=== PATIENT | female | born 1970 | race Caucasian/White ===

== ENCOUNTER 2016-11-01 21:49 | Inpatient (IN) | payer OTHER ==
[~2016-11-01] VITALS: Ht 162.6 cm; Wt 141.5 kg
[~2016-11-01 21:49] MED LIST: GLUC1000 PO; LEVO.1 PO
[2016-11-01 21:58] VITALS: BP 130/71; PULSE 73; RESP 22; TEMP 98.3; O2SAT 72
[2016-11-01 22:08] VITALS: O2SAT 95
--- NOTE | 2016-11-01 22:33 | RADRPT ---
EXAM DATE/TIME: 11/01/2016 22:28 [place] COMPARISON: CHEST SINGLE AP, August 07, 2016, 17:08. INDICATIONS : Shortness of breath. MEDICAL HISTORY : Hypertension. Chronic obstructive pulmonary disease. Diabetes mellitus type SURGICAL HISTORY : None. ENCOUNTER: Initial ACUITY: 1 day PAIN SCORE: 5/10 LOCATION: Bilateral chest FINDINGS: No infiltrate, effusion or pneumothorax demonstrated. Heart size mildly enlarged, similar to before. CONCLUSION: No acute cardiopulmonary disease demonstrated. Mild, stable compensated cardiomegaly. Jasbir Whitlock MD on November 01, 2016 at 22:32 Board Certified Radiologist. This report was verified electronically.
--- NOTE | 2016-11-01 22:36 | PD ---
HPI Chief Complaint: GI Complaint Time Seen by Provider: 22:36 Travel History International Travel<30 days: No Contact w/Intl Traveler<30days: No Traveled to known affect area: No History of Present Illness HPI 46-year-old female with a history of diabetes, sleep apnea, morbid obesity, gastritis, alcohol abuse is brought to the emergency department by EMS for evaluation of nausea and vomiting for 2-3 days. Per EMS the patient's oxygen saturation was noted to be 78% on room air and she was placed on 6 L of nasal cannula which brought her up to 100%. The patient states that she's had nausea and vomiting for 2-3 days with epigastric pain, states she has a history of gastritis. States that she has had shortness of breath over the past 4 days that worsened significantly yesterday. Denies any chest pain, lightheadedness, dizziness. States that she has had a mild cough over the past few days. States she has swelling of her bilateral ankles for the past week. The patient is reporting a history of COPD and thinks that she may have CHF but is not sure. She has a remote history of cigarette smoking. Denies any drug use. States that her PCP is Dr. Araiza but she has not seen her in 2 months, has been out of her medications for the past month. Of note the patient is a poor historian. No other complaints. PFSH Past Medical History Arthritis: No Asthma: Yes Autoimmune Disease: No Anxiety: Yes Depression: No Heart Rhythm Problems: Yes Cancer: No Cardiovascular Problems: Yes High Cholesterol: Yes Chemotherapy: No Chest Pain: No Congestive Heart Failure: Yes COPD: Yes Cerebrovascular Accident: No Diabetes: Yes Patient Takes Glucophage: Yes (METFORMIN) Diminished Hearing: No Endocrine: Yes Gastrointestinal Disorders: Yes (GASTRITIS) GERD: Yes Genitourinary: Yes Headaches: No Hiatal Hernia: No Heparin Induced Thrombocytopen: No Hypertension: Yes ("IN THE PAST") Immune Disorder: No Implanted Vascular Access Dvce: No Kidney Stones: No Musculoskeletal: Yes Neurologic: Yes (PERIPHERAL NEUROPATHY) Psychiatric: Yes Reproductive: No Respiratory: Yes (COPD, SLEEP APNEA) Integumentary: Yes (CELLUTLITIS HX BILATERAL LEGS) Immunizations Current: Yes Migraines: No Radiation Therapy: No Seizures: No Sickle Cell Disease: No Sleep Apnea: Yes Thyroid Disease: Yes (hypothyroid) Ulcer: No ?: Not Menopausal: Yes : 1 Para: 1 Miscarriage: 0 : 0 Past Surgical History Abdominal Surgery: No AICD: No Arteriovenous Shunt: No Cardiac Surgery: No Ear Surgery: No Endocrine Surgery: No Eye Surgery: Yes ("LAZY EYE" CORRECTION AT AGE 5) Genitourinary Surgery: No Gynecologic Surgery: No Insulin Pump: No Joint Replacement: No Neurologic Surgery: No Oral Surgery: No Pacemaker: No Thoracic Surgery: No Other Surgery: Yes (trach/g-tube) Family History Family Myocardial Infarction: Yes (GRANDFATHER SIDDIQUI) Social History Alcohol Use: Yes (3 X WEEK) Tobacco Use: No (QUIT 1999 1.5 PPD) Substance Use: No Allergies-Medications (Allergen,Severity, Reaction): Coded Allergies: Keflex (Verified Allergy, Severe, FACE SWELLS, 11/01/16) Penicillin (Verified Allergy, Severe, Anaphylaxis, 11/01/16) Clindamycin (Verified Allergy, Unknown, 11/01/16) STS IT PUT A HOLE IN HER LEG Doxycycline (Verified Adverse Reaction, Unknown, diarrhea, 11/01/16) Reported Meds & Prescriptions Reported Meds & Active Scripts Active Reported Synthroid (Levothyroxine Sodium) 100 Mcg Tab 100 Mcg PO DAILY Glucophage (Metformin HCl) 1,000 Mg Tab 1,000 Mg PO BIDPC With a meal Review of Systems ROS Limitations: Poor Historian Except as stated in HPI: all other systems reviewed are Neg Physical Exam Exam Limitations: Poor Historian Narrative GENERAL: Morbidly obese female patient in no acute distress. SKIN: Warm and dry. HEAD: Normocephalic and atraumatic. EYES: No injection, drainage, or hyphema noted. PERRLA. EOMI. ENT: No nasal drainage noted. Oropharynx is clear. NECK: Supple and the trachea is midline. CARDIOVASCULAR: Regular rate and rhythm. RESPIRATORY: Breath sounds are equal bilaterally with no accessory muscle use, wheezing, rhonchi, or crackles. GASTROINTESTINAL: Abdomen is soft, non-tender, and nondistended. MUSCULOSKELETAL: Swelling of bilateral ankles. No obvious deformities, cyanosis , or ecchymosis is present throughout the upper and lower extremities. Patient has full range of motion without any signs of neurovascular compromise. NEUROLOGICAL: Awake, alert, and oriented. Normal speech and gait. Cranial nerves are grossly intact. Data Data Last Documented VS Vital Signs Date Time Temp Pulse Resp B/P Pulse Ox O2 Delivery O2 Flow Rate FiO2 11/01/16 22:08 95 Nasal Cannula 4 11/01/16 22:04 22 11/01/16 21:58 98.3 73 130/71 Orders Complete Blood Count With Diff (11/01/16 22:05) Comprehensive Metabolic Panel (11/01/16 22:05) Lipase (11/01/16 22:05) Lactic Acid (11/01/16 22:05) Prothrombin Time / Inr (Pt) (11/01/16 22:05) Act Partial Throm Time (Ptt) (11/01/16 22:05) Urinalysis - C+S If Indicated (11/01/16 22:05) Iv Access Insert/Monitor (11/01/16 22:05) Ecg Monitoring (11/01/16 22:05) Oximetry (11/01/16 22:05) Sodium Chloride 0.9% Flush (Ns Flush) (11/01/16 22:15) Electrocardiogram (11/01/16 22:05) B-Type Natriuretic Peptide (11/01/16 22:05) D-Dimer (11/01/16 22:05) Ckmb (Isoenzyme) Profile (11/01/16 22:05) Troponin I (11/01/16 22:05) Oxygen Administration (11/01/16 22:05) Chest, Single Ap (11/01/16 22:05) Drug Screen, Random Urine (11/01/16 22:35) Alcohol (Ethanol) (11/01/16 22:35) Ct Pulmonary Angiogram (11/01/16 22:56) Labs Laboratory Tests Test 11/01/16 22:20 White Blood Count 7.6 TH/MM3 Red Blood Count 4.59 MIL/MM3 Hemoglobin 14.1 GM/DL Hematocrit 42.0 % Mean Corpuscular Volume 91.5 FL Mean Corpuscular Hemoglobin 30.8 PG Mean Corpuscular Hemoglobin 33.6 % Concent Red Cell Distribution Width 14.0 % Platelet Count 214 TH/MM3 Mean Platelet Volume 8.7 FL Neutrophils (%) (Auto) 56.0 % Lymphocytes (%) (Auto) 36.1 % Monocytes (%) (Auto) 5.0 % Eosinophils (%) (Auto) 2.6 % Basophils (%) (Auto) 0.3 % Neutrophils # (Auto) 4.2 TH/MM3 Lymphocytes # (Auto) 2.7 TH/MM3 Monocytes # (Auto) 0.4 TH/MM3 Eosinophils # (Auto) 0.2 TH/MM3 Basophils # (Auto) 0.0 TH/MM3 CBC Comment DIFF FINAL Differential Comment Prothrombin Time 10.5 SEC Prothromb Time International 1.0 RATIO Ratio Activated Partial 22.0 SEC Thromboplast Time D-Dimer Quantitative (PE/DVT) 0.27 MG/L FEU Sodium Level 140 MEQ/L Potassium Level 4.2 MEQ/L Chloride Level 96 MEQ/L Carbon Dioxide Level 37.7 MEQ/L Anion Gap 6 MEQ/L Blood Urea Nitrogen 12 MG/DL Creatinine 0.79 MG/DL Estimat Glomerular Filtration 78 ML/MIN Rate Random Glucose 136 MG/DL Lactic Acid Level 2.0 mmol/L Calcium Level 8.1 MG/DL Total Bilirubin 0.3 MG/DL Aspartate Amino Transf 13 U/L (AST/SGOT) Alanine Aminotransferase 21 U/L (ALT/SGPT) Alkaline Phosphatase 178 U/L Total Creatine Kinase 30 U/L Troponin I LESS THAN 0.02 NG/ML Total Protein 7.1 GM/DL Albumin 3.2 GM/DL Lipase 108 U/L [facility] Medical Decision Making Medical Screen Exam Complete: Yes Emergency Medical Condition: Yes Differential Diagnosis Gastritis versus pancreatitis versus alcohol abuse versus pneumonia versus PE Narrative Course 46-year-old female is brought to the emergency department by EMS for evaluation of nausea, vomiting and shortness of breath. Patient is found to have an oxygen saturation of 72% on room air. Otherwise vital signs are within normal limits. Physical examination is essentially unremarkable. IV access is obtained, labs were drawn and sent. Chest x-ray has been ordered and is pending. CBC is unremarkable. CMP is essentially unremarkable for any acute abnormalities. Troponin is less than 0.02. Lactic acid is 2.0. Coags are unremarkable. D-dimer is negative. Chest x-ray shows cardiomegaly but is otherwise unremarkable. CT pulmonary angiogram has been ordered and is pending. Patient signed out to Dr. Julian who will assume care of the patient and disposition pending results of CT pulmonary angiogram. Luba Torres Nov 01, 2016 22:36
[2016-11-01 22:41] LABS: AUTOMATED NEUTROPHIL # 4.2 TH/MM3 (1.8-7.7); BASOPHIL % 0.3 % (0.0-2.0); EOSINOPHIL # 0.2 TH/MM3 (0-0.4); EOSINOPHIL % 2.6 % (0.0-4.0); HEMO FLAGS DIFF FINAL; LYMPH % 36.1 % (9.0-44.0); LYMPHOCYTE # 2.7 TH/MM3 (1.0-4.8); MEAN CELL VOLUME 91.5 FL (80.0-100.0); MEAN CORPUSCULAR HEMOGLOBIN 30.8 PG (27.0-34.0); MEAN CORPUSCULAR HGB CONC 33.6 % (32.0-36.0); PLATELET COUNT 214 TH/MM3 (150-450); RED BLOOD COUNT 4.59 MIL/MM3 (4.00-5.30); WHITE BLOOD COUNT 7.6 TH/MM3 (4.0-11.0)
[2016-11-01 22:52] LABS: ANION GAP 6 MEQ/L (5-15); AST (GOT) 13 U/L (15-37); BICARBONATE 37.7 MEQ/L (21.0-32.0); BLOOD UREA NITROGEN 12 MG/DL (7-18); CHLORIDE 96 MEQ/L (98-107); GLOMERULAR FILTRATION RATE 78 ML/MIN (>89); POTASSIUM 4.2 MEQ/L (3.5-5.1); SODIUM (NA) 140 MEQ/L (136-145)
[2016-11-01 22:57] LABS: ALKALINE PHOSPHATASE 178 U/L (45-117); ALT (GPT) 21 U/L (10-53); TOTAL BILIRUBIN ADULT 0.3 MG/DL (0.2-1.0)
[2016-11-01 23:00] LABS: CREATINE KINASE 30 U/L (26-192)
[2016-11-01 23:03] LABS: PROTHROMBIN TIME - PATIENT 10.5 SEC (9.8-11.6)
[2016-11-01 23:15] VITALS: BP 132/76; PULSE 77; RESP 18; O2SAT 86
[2016-11-01 23:30] VITALS: PULSE 89; RESP 18; O2SAT 95
[2016-11-01] MEDS ORDERED: SODIUM CHLOR 0.9% 1000 ML INJ 1,000 ML IV ONE (23:30)
[2016-11-01] MEDS ORDERED: RESP: ALBUTEROL 2.5 MG/IPRATROPIUM 0.5 MG NEB (SCH) NEB ONE (23:30)
[2016-11-01] MEDS ORDERED: ONDANSETRON HCL 4 MG/2 ML VIAL IV ONE (23:30)
[2016-11-01] MEDS ORDERED: methylPREDNISolone SOD SUCC 125 MG/2 ML VIAL IV PUSH ONE (23:30)
[2016-11-01 23:35] VITALS: O2SAT 100
[2016-11-01 23:36] LABS: BLOOD GAS BASE EXCESS 10.1 mmol/L (-2-2); BLOOD GAS CARBOXYHEMOGLOBIN 2.1 % (0-4); BLOOD GAS HCO3 37 mmol/L (22-26); BLOOD GAS METHEMOGLOBIN 1.6 % (0-2); BLOOD GAS O2 HGB SATURATION 93 % (90-100); BLOOD GAS OXYGEN CONTENT 19.4 Vol % (12.0-20.0); BLOOD GAS PCO2 83 mmHg (38-42); BLOOD GAS PO2 96 mmHG (61-120); BLOOD GAS TOTAL HGB 14.8 G/DL (12.0-16.0); CRITICAL VALUE YES; DRAW SITE LT RADIAL; LITER FLOW 4 L/M; NUMBER OF ARTERIAL PUNCTURES 1; OXYGEN DEVICE NASAL CANNULA; TEMP CORR TO 98.6
[2016-11-01 23:37] LABS: STAT YES; ULNAR PULSE PRESENT
[2016-11-01] MEDS: SODIUM CHLORIDE 0.9% FLUSH 5 ML FLUSH IVF PRN (23:50)
[2016-11-02] VITALS (28 sets, daily range): BP systolic 109–135; BP diastolic 55–86; PULSE 50–78; RESP 10–20; TEMP 98.3–99; O2SAT 92–98
--- NOTE | 2016-11-02 00:17 | PD ---
Physical Exam Narrative General: The patient is a well-developed, obese female, drowsy initially on arrival, however able to answer questions initially. Later when I assumed care of the patient and did my initial evaluation the patient was stuporous Head and Neck exam: Head is normocephalic atraumatic. Eyes: EOMI, pupils are equal round and reactive to light. Nose: Midline septum with pink mucous membranes Mouth: Dentition unremarkable. Moist mucus membranes. Posterior oropharynx is not erythematous. No tonsillar hypertrophy. Uvula midline. Airway patent. Neck: No palpable lymphadenopathy. No nuchal rigidity. No thyromegaly. Cardiovascular: Regular rate and rhythm without murmurs, gallops, or rubs. Lungs: Clear to auscultation bilaterally. No wheezes, rhonchi, or rales. Abdomen: Soft, without tenderness to palpation in all 4 quadrants of the abdomen. No guarding, rebound, or rigidity. Normal bowel sounds are audible Extremities: No clubbing or cyanosis. The patient has trace edema bilateral lower extremities. 2+ pulses in all 4 extremities. Neurologic Exam: The patient on examination is difficult to arouse even with painful stimulation. The patient does however awaken with sternal rub and move all extremities equally, however she quickly falls back asleep. An ABG has been ordered to evaluate for hypercapnia. Skin Exam: No rash noted. Intact skin that is warm and dry. Data Data Last Documented VS Vital Signs Date Time Temp Pulse Resp B/P Pulse Ox O2 Delivery O2 Flow Rate FiO2 11/02/16 02:30 77 18 94 Ventilator 50 11/02/16 02:00 134/86 11/01/16 23:30 4 11/01/16 21:58 98.3 Orders Complete Blood Count With Diff (11/01/16 22:05) Comprehensive Metabolic Panel (11/01/16 22:05) Lipase (11/01/16 22:05) Lactic Acid (11/01/16 22:05) Prothrombin Time / Inr (Pt) (11/01/16 22:05) Act Partial Throm Time (Ptt) (11/01/16 22:05) Urinalysis - C+S If Indicated (11/01/16 22:05) Iv Access Insert/Monitor (11/01/16 22:05) Ecg Monitoring (11/01/16 22:05) Oximetry (11/01/16 22:05) Sodium Chloride 0.9% Flush (Ns Flush) (11/01/16 22:15) Electrocardiogram (11/01/16 22:05) B-Type Natriuretic Peptide (11/01/16 22:05) D-Dimer (11/01/16 22:05) Ckmb (Isoenzyme) Profile (11/01/16 22:05) Troponin I (11/01/16 22:05) Oxygen Administration (11/01/16 22:05) Chest, Single Ap (11/01/16 22:05) Drug Screen, Random Urine (11/01/16 22:35) Alcohol (Ethanol) (11/01/16 22:20) Ondansetron Inj (Zofran Inj) (11/01/16 23:30) Sodium Chlor 0.9% 1000 Ml Inj (Ns 1000 M (11/01/16 23:30) Methylprednisolone So Succ Inj (Solumedr (11/01/16 23:30) Albuterol-Ipratropium Neb (Duoneb Neb) (11/01/16 23:30) Arterial Blood Gas (Abg) (11/01/16 23:20) Resp Bipap / Cpap Non Invas Vt (11/01/16 ) Ct Pulmonary Angiogram (11/02/16 ) Urinary Catheter Insert/Apply (11/02/16 00:18) Arterial Blood Gas (Abg) (11/02/16 01:37) Sodium Chloride 0.9% Flush (Ns Flush) (11/02/16 01:45) Chest, Single Ap (11/02/16 02:02) Etomidate Inj (Amidate Inj) (11/02/16 02:15) Succinylcholine Inj (Quelicin Inj) (11/02/16 02:15) Albuterol-Ipratropium Neb (Duoneb Neb) (11/02/16 02:15) Sodium Chloride 0.9% Flush (Ns Flush) (11/02/16 02:15) Restraints Non-Violent MARYANNE.Q3H (11/02/16 02:02) Jordan-Gastric Tube Insert/Mon (11/02/16 02:02) Propofol 1000 Mg/100 Ml Inj (Diprivan 10 (11/02/16 02:15) ^ Infusion (11/02/16 02:02) RASS (11/02/16 02:02) Neurological Rass Scale MARYANNE.Q2H (11/02/16 02:02) Admit Order (Ed Use Only) (11/02/16 02:29) Labs Laboratory Tests Test 11/01/16 11/01/16 11/01/16 11/02/16 22:20 23:00 23:20 01:37 White Blood Count 7.6 TH/MM3 Red Blood Count 4.59 MIL/MM3 Hemoglobin 14.1 GM/DL Hematocrit 42.0 % Mean Corpuscular Volume 91.5 FL Mean Corpuscular Hemoglobin 30.8 PG Mean Corpuscular Hemoglobin 33.6 % Concent Red Cell Distribution Width 14.0 % Platelet Count 214 TH/MM3 Mean Platelet Volume 8.7 FL Neutrophils (%) (Auto) 56.0 % Lymphocytes (%) (Auto) 36.1 % Monocytes (%) (Auto) 5.0 % Eosinophils (%) (Auto) 2.6 % Basophils (%) (Auto) 0.3 % Neutrophils # (Auto) 4.2 TH/MM3 Lymphocytes # (Auto) 2.7 TH/MM3 Monocytes # (Auto) 0.4 TH/MM3 Eosinophils # (Auto) 0.2 TH/MM3 Basophils # (Auto) 0.0 TH/MM3 CBC Comment DIFF FINAL Differential Comment Prothrombin Time 10.5 SEC Prothromb Time International 1.0 RATIO Ratio Activated Partial 22.0 SEC Thromboplast Time D-Dimer Quantitative (PE/DVT) 0.27 MG/L FEU Sodium Level 140 MEQ/L Potassium Level 4.2 MEQ/L Chloride Level 96 MEQ/L Carbon Dioxide Level 37.7 MEQ/L Anion Gap 6 MEQ/L Blood Urea Nitrogen 12 MG/DL Creatinine 0.79 MG/DL Estimat Glomerular Filtration 78 ML/MIN Rate Random Glucose 136 MG/DL Lactic Acid Level 2.0 mmol/L Calcium Level 8.1 MG/DL Total Bilirubin 0.3 MG/DL Aspartate Amino Transf 13 U/L (AST/SGOT) Alanine Aminotransferase 21 U/L (ALT/SGPT) Alkaline Phosphatase 178 U/L Total Creatine Kinase 30 U/L Troponin I LESS THAN 0.02 NG/ML B-Type Natriuretic Peptide 120 PG/ML Total Protein 7.1 GM/DL Albumin 3.2 GM/DL Lipase 108 U/L Ethyl Alcohol Level 193 MG/DL Urine Color LIGHT-YELLOW Urine Turbidity CLEAR Urine pH 6.0 Urine Specific Regent 1.004 Urine Protein NEG mg/dL Urine Glucose (UA) NEG mg/dL Urine Ketones NEG mg/dL Urine Occult Blood NEG Urine Nitrite NEG Urine Bilirubin NEG Urine Urobilinogen LESS THAN 2.0 MG/DL Urine Leukocyte Esterase NEG Urine RBC LESS THAN 1 /hpf Urine Squamous Epithelial <1 /hpf Cells Urine Mucus FEW /lpf Microscopic Urinalysis Comment CULT NOT INDICATED Urine Opiates Screen NEG Urine Barbiturates Screen NEG Urine Amphetamines Screen NEG Urine Benzodiazepines Screen NEG Urine Cocaine Screen NEG Urine Cannabinoids Screen NEG Blood Gas Puncture Site LT RADIAL LT RADIAL Blood Gas Patient Temperature 98.6 98.6 Blood Gas HCO3 37 mmol/L 37 mmol/L Blood Gas Base Excess 10.1 mmol/L 9.9 mmol/L Blood Gas Oxygen Saturation 93 % 89 % Arterial Blood pH 7.27 7.25 Arterial Blood Partial 83 mmHg 88 mmHg Pressure CO2 Arterial Blood Partial 96 mmHG 82 mmHG Pressure O2 Arterial Blood Oxygen Content 19.4 Vol % 17.8 Vol % Arterial Blood 2.1 % 2.2 % Carboxyhemoglobin Arterial Blood Methemoglobin 1.6 % 2.3 % Blood Gas Hemoglobin 14.8 G/DL 14.2 G/DL Oxygen Delivery Device NASAL CANNULA NPPV Blood Gas Liter Flow 4 L/M Blood Gas Ventilator Setting [id number] Blood Gas Inspired Oxygen 50 % [facility] Medical Record Reviewed: Yes Supervised Visit with TRA: No Interpretation(s) Last Impressions Chest X-Ray 11/01/162204 Signed Impressions: Service Date/Time: Tuesday, November 01, 2016 22:28 - CONCLUSION: No acute cardiopulmonary disease demonstrated. Mild, stable compensated cardiomegaly. Jasbir Whitlock MD Narrative Course During the course of the patients emergency department visit, the patients history, examination, and differential diagnosis were reviewed with the patient. The patient had IV access obtained and blood work sent for analysis. The patient was placed on a environmental monitoring specialist with oximetry and blood pressure monitoring. The patient's case was checked out to me by Luba. Please see her complete history and physical. The patient came in with reports of nausea vomiting and shortness of breath. The patient has not been compliant with her medication regimen for the last month. Her primary care physician is Dr. Araiza. The patient was noted on arrival to have hypoxemia on room air into the 80s. The patient is placed on supplemental nasal cannula O2. A chest x- ray showed no acute abnormality. CTA was ordered to rule out PE. I was called into the patient's room when the patient had a decreased level of consciousness. The patient was arousable to stimulation although extremely drowsy which is worse than what she came in with, as the patient was drowsy although still able to provide some history. The patient had an ABG done that showed hypercapnia as the cause. The patient's pH is 7.27, PCO2 82.8, PO2 96.2 , bicarbonate 37. The patient was placed on BiPAP which will be weaned as tolerated. The patient was given a DuoNeb 1, Solu-Medrol 125 mg IV, normal saline IV fluids and Zofran 4 g IV 1 for nausea. Radiology studies were reviewed and remarkable for a chest x-ray that shows no acute cardiopulmonary disease, mild stable compensated cardiomegaly is noted. The patients laboratory studies were reviewed and remarkable for a CBC that is within normal limits, CMP is remarkable for chloride of 96, CO2 37.7, glucose 136, calcium 8.1, AST 13, alkaline phosphatase 178, initial set of cardiac enzymes are negative, BNP is 120, lipase 108, PT PTT within normal limits, d- dimer 0.27, alcohol level is 193 which could also explain some of the patient's sedation. The patient on repeat evaluation was more responsive to verbal stimulation and would awaken on BiPAP, however again the patient became stuporous approximately 20 minutes later. A repeat ABG shows that she continues to have hypercapnia with a PCO2 in the 80s. The patient was prepped for intubation. The patient was intubated with an 8 size endotracheal tube by me. The patient tolerated the procedure well. The chest x-ray postintubation reveals that the endotracheal tube is close to the right mainstem bronchus, therefore he was moved back 1-1/2 cm. CTA to rule out PE was resulted as showing no evidence of pulmonary embolism. ABG postintubation reveals hypercapnia is improving with a CO2 in the 50s The patient will be admitted to the hospital for a COPD exacerbation with hypercapnia and altered mentation related to hypercapnia and alcohol intoxication. The patients results were discussed with the patient, including the plan of care. I explained that further testing and/ or monitoring is indicated based on the patients history, examination, and/ or laboratory findings. Therefore, I recommended admission for additional evaluation. The patient expressed understanding and was agreeable with this plan. The patient was admitted to the hospital in guarded condition and sent to a bed under the care of the dinkey motor operator. Critical Care Narrative Aggregate critical care time was 43 minutes. Time to perform other separately billable procedures was not included in the critical care time. My time did not include minutes spent treating any other patients simultaneously or on activities that did not directly contribute to the patient's treatment. The services I provided to this patient were to treat and/or prevent clinically significant deterioration that could result in: Respiratory arrest, versus hypoxic encephalopathy I provided critical care services requiring my management, as noted below: Chart data review, documentation time, medication orders and management, vital sign assessments/reviewing monitor data, ordering and reviewing lab tests, ordering and interpreting/reviewing x-rays and diagnostic studies, care of the patient and discussion of the patient with the admitting physicians. Procedures Procedure Narrative After the risks and benefits were discussed the following procedure was performed: INTUBATION: The patient was put in optimal position for the procedure. Rapid sequence intubation was initiated by me using 50 mg of propofol IV and 100 milligrams of succinylcholine IV. The patient was intubated with a 8 cuffed endotracheal tube. The patient was intubated with a Glidescope. Tube placement was confirmed by visualization of the tube and balloon passing through the cords, capnometry and subsequent chest x-ray. Breath sounds were equal and well aerated bilaterally postintubation. No breath sounds over stomach. Patient tolerated procedure well. Physician Communication Physician Communication The patient's case was discussed with Dr. Vega who did agree to admit the patient for further evaluation and treatment at this time to the intensive care unit. Diagnosis Primary Impression: COPD exacerbation Additional Impressions: Altered mental status Qualified Code: R40.0 - Somnolence Alcohol intoxication Qualified Code: F10.129 - Alcohol intoxication, with unspecified complication Hypercapnia Hypercapnic respiratory failure Qualified Code: J96.22 - Acute on chronic respiratory failure with hypercapnia Admitting Information Admitting Physician Requests: Gloria Massey MD Nov 02, 2016 00:17
[2016-11-02 00:41] LABS: AMPHETAMINE, URINE NEG (NEG); BARBITURATES, URINE NEG (NEG); BLOOD, URINE NEG (NEG); COCAINE, URINE NEG (NEG); COMMENT (UR) CULT NOT INDICATED; CULTURE IF INDICATED CULT NOT INDICATED; GLUCOSE,URINE NEG (NEG); KETONE, URINE NEG (NEG); MUCUS URINE FEW /lpf (OCC); NITRITE,URINE NEG (NEG); SQUAMOUS EPITHELIAL CELL URINE <1 /hpf (0-5); URINE COLOR LIGHT-YELLOW (YELLW/STRAW)
[2016-11-02] MEDS ORDERED: SODIUM CHLORIDE 0.9% FLUSH 5 ML FLUSH IVF PRN ×2 (01:45→02:15)
[2016-11-02 01:49] LABS: BLOOD GAS BASE EXCESS 9.9 mmol/L (-2-2); BLOOD GAS CARBOXYHEMOGLOBIN 2.2 % (0-4); BLOOD GAS HCO3 37 mmol/L (22-26); BLOOD GAS METHEMOGLOBIN 2.3 % (0-2); BLOOD GAS O2 HGB SATURATION 89 % (90-100); BLOOD GAS OXYGEN CONTENT 17.8 Vol % (12.0-20.0); BLOOD GAS PCO2 88 mmHg (38-42); BLOOD GAS PO2 82 mmHG (61-120); BLOOD GAS TOTAL HGB 14.2 G/DL (12.0-16.0); CRITICAL VALUE YES; DRAW SITE LT RADIAL; FIO2 50 %; NUMBER OF ARTERIAL PUNCTURES 1; OXYGEN DEVICE NPPV; STAT YES; TEMP CORR TO 98.6; ULNAR PULSE PRESENT; VENT SETTINGS IPAP12/EPAP5
[2016-11-02] MEDS ORDERED: SUCCINYLCHOLINE CHLORIDE 200 MG/10 ML VIAL IVP ONE (02:15)
[2016-11-02] MEDS ORDERED: ETOMIDATE 20 MG/10 ML VIAL IVP ONE (02:15)
[2016-11-02] MEDS ORDERED: PROPOFOL 1000 MG/100 ML INJ 100 ML IV SCH ×2 (02:15→02:45)
--- NOTE | 2016-11-02 02:34 | HHI.HP ---
HPI Service Critical Care Medicine Primary Care Physician No Primary Care Physician Admission Diagnosis Respiratory Failure, hypercapneic Diagnosis: Chief Complaint: Nausea and vomiting for two days. Travel History International Travel<30 Days: No Contact w/Intl Traveler <30 Da: No Traveled to Known Affected Are: No History of Present Illness Brought in by EMS for worsening respiratory distress. Despite BiPAP NIV she progressed to hypercapneic respiratory failure and required intubation and mechanical ventilation. She has had several previous admissions for similar episodes. ETOH elevated at 193. Body habitus would promote obesity- hypoventilation syndrome. Past Family Social History Allergies: Coded Allergies: Keflex (Verified Allergy, Severe, FACE SWELLS, 11/01/16) Penicillin (Verified Allergy, Severe, Anaphylaxis, 11/01/16) Clindamycin (Verified Allergy, Unknown, 11/01/16) STS IT PUT A HOLE IN HER LEG Doxycycline (Verified Adverse Reaction, Unknown, diarrhea, 11/01/16) Past Medical History Past Medical History Arthritis: No Asthma: Yes Autoimmune Disease: No Anxiety: Yes Depression: No Heart Rhythm Problems: Yes Cancer: No Cardiovascular Problems: Yes High Cholesterol: Yes Chemotherapy: No Chest Pain: No Congestive Heart Failure: Yes COPD: Yes Cerebrovascular Accident: No Diabetes: Yes Patient Takes Glucophage: Yes (METFORMIN) Diminished Hearing: No Endocrine: Yes Gastrointestinal Disorders: Yes (GASTRITIS) GERD: Yes Genitourinary: Yes Headaches: No Hiatal Hernia: No Heparin Induced Thrombocytopen: No Hypertension: Yes ("IN THE PAST") Immune Disorder: No Implanted Vascular Access Dvce: No Kidney Stones: No Musculoskeletal: Yes Neurologic: Yes (PERIPHERAL NEUROPATHY) Psychiatric: Yes Reproductive: No Respiratory: Yes (COPD, SLEEP APNEA) Integumentary: Yes (CELLUTLITIS HX BILATERAL LEGS) Immunizations Current: Yes Migraines: No Radiation Therapy: No Seizures: No Sickle Cell Disease: No Sleep Apnea: Yes Thyroid Disease: Yes (hypothyroid) Ulcer: No ?: Not Menopausal: Yes : 1 Para: 1 Miscarriage: 0 : 0 Past Surgical History Abdominal Surgery: No AICD: No Arteriovenous Shunt: No Cardiac Surgery: No Ear Surgery: No Endocrine Surgery: No Eye Surgery: Yes ("LAZY EYE" CORRECTION AT AGE 5) Genitourinary Surgery: No Gynecologic Surgery: No Insulin Pump: No Joint Replacement: No Neurologic Surgery: No Oral Surgery: No Pacemaker: No Thoracic Surgery: No Other Surgery: Yes (trach/g-tube) Family History Family Myocardial Infarction: Yes (GRANDFATHER SIDDIQUI) Social History Alcohol Use: Yes (3 X WEEK) Tobacco Use: No (QUIT 1999 1.5 PPD) Substance Use: No Allergies-Medications Allergies-Medications (Allergen,Severity, Reaction): Coded Allergies: Keflex (Verified Allergy, Severe, FACE SWELLS, 11/01/16) Penicillin (Verified Allergy, Severe, Anaphylaxis, 11/01/16) Clindamycin (Verified Allergy, Unknown, 11/01/16) STS IT PUT A HOLE IN HER LEG Doxycycline (Verified Adverse Reaction, Unknown, diarrhea, 11/01/16) Reported Meds & Prescriptions Reported Meds & Active Scripts Active Reported Synthroid (Levothyroxine Sodium) 100 Mcg Tab 100 Mcg PO DAILY Glucophage (Metformin HCl) 1,000 Mg Tab 1,000 Mg PO BIDPC With a meal Physical Exam Vital Signs Vital Signs Date Time Temp Pulse Resp B/P Pulse Ox O2 Delivery O2 Flow Rate FiO2 11/02/16 02:18 100 11/02/16 02:00 73 10 134/86 94 BiPAP 55 11/02/16 00:02 78 16 134/63 97 BiPAP 11/01/16 23:45 97 BiPAP 11/01/16 23:35 100 35 11/01/16 23:30 89 18 95 Nasal Cannula 4 11/01/16 23:15 77 18 132/76 86 Nasal Cannula 4 11/01/16 22:08 95 Nasal Cannula 4 11/01/16 22:08 95 Nasal Cannula 4 11/01/16 22:04 22 11/01/16 21:58 98.3 73 22 130/71 72 Physical Exam PE: P 73, BP 138/86, R 12, sats 94% Head: Flushed. Neck: Supple, orally intubated. Lungs: Diffuse sonorous rhonchi, acceptable sun air movement. Heart: NL S1S2, RRR, no m,r.No JVD. Abdomen: Large, soft, no guarding, BS active. Extremities: Warm, well perfused. Neuro: Sedated on vent. SLADE. Cough reflex intact. Seen to move 4 limbs by ED staff. Laboratory Laboratory Tests Test 11/01/16 11/01/16 11/01/16 11/02/16 22:20 23:00 23:20 01:37 White Blood Count 7.6 Red Blood Count 4.59 Hemoglobin 14.1 Hematocrit 42.0 Mean Corpuscular Volume 91.5 Mean Corpuscular Hemoglobin 30.8 Mean Corpuscular Hemoglobin 33.6 Concent Red Cell Distribution Width 14.0 Platelet Count 214 Mean Platelet Volume 8.7 Neutrophils (%) (Auto) 56.0 Lymphocytes (%) (Auto) 36.1 Monocytes (%) (Auto) 5.0 Eosinophils (%) (Auto) 2.6 Basophils (%) (Auto) 0.3 Neutrophils # (Auto) 4.2 Lymphocytes # (Auto) 2.7 Monocytes # (Auto) 0.4 Eosinophils # (Auto) 0.2 Basophils # (Auto) 0.0 CBC Comment DIFF FINAL Differential Comment Prothrombin Time 10.5 Prothromb Time International 1.0 Ratio Activated Partial 22.0 Thromboplast Time D-Dimer Quantitative (PE/DVT) 0.27 Sodium Level 140 Potassium Level 4.2 Chloride Level 96 Carbon Dioxide Level 37.7 Anion Gap 6 Blood Urea Nitrogen 12 Creatinine 0.79 Estimat Glomerular Filtration 78 Rate Random Glucose 136 Lactic Acid Level 2.0 Calcium Level 8.1 Total Bilirubin 0.3 Aspartate Amino Transf 13 (AST/SGOT) Alanine Aminotransferase 21 (ALT/SGPT) Alkaline Phosphatase 178 Total Creatine Kinase 30 Troponin I LESS THAN 0.02 B-Type Natriuretic Peptide 120 Total Protein 7.1 Albumin 3.2 Lipase 108 Ethyl Alcohol Level 193 Urine Color LIGHT-YELLOW Urine Turbidity CLEAR Urine pH 6.0 Urine Specific [place] 1.004 Urine Protein NEG Urine Glucose (UA) NEG Urine Ketones NEG Urine Occult Blood NEG Urine Nitrite NEG Urine Bilirubin NEG Urine Urobilinogen LESS THAN 2.0 Urine Leukocyte Esterase NEG Urine RBC LESS THAN 1 Urine Squamous Epithelial <1 Cells Urine Mucus FEW Microscopic Urinalysis Comment CULT NOT INDICATED Urine Opiates Screen NEG Urine Barbiturates Screen NEG Urine Amphetamines Screen NEG Urine Benzodiazepines Screen NEG Urine Cocaine Screen NEG Urine Cannabinoids Screen NEG Blood Gas Puncture Site LT RADIAL LT RADIAL Blood Gas Patient Temperature 98.6 98.6 Blood Gas HCO3 37 37 Blood Gas Base Excess 10.1 9.9 Blood Gas Oxygen Saturation 93 89 Arterial Blood pH 7.27 7.25 Arterial Blood Partial 83 88 Pressure CO2 Arterial Blood Partial 96 82 Pressure O2 Arterial Blood Oxygen Content 19.4 17.8 Arterial Blood 2.1 2.2 Carboxyhemoglobin Arterial Blood Methemoglobin 1.6 2.3 Blood Gas Hemoglobin 14.8 14.2 Oxygen Delivery Device NASAL CANNULA NPPV Blood Gas Liter Flow 4 Blood Gas Ventilator Setting IPAP12/[id number] Blood Gas Inspired Oxygen 50 Result Diagram: 11/01/16221911/01/162219 Assessment and Plan Problem List: (1) Hypercapnic respiratory failure ICD Code: J96.92 Status: Acute (2) Morbid obesity ICD Code: E66.01 Status: Chronic (3) Alcohol intoxication ICD Code: F10.129 Status: Acute Assessment and Plan Plan: 1. Intubation. 2. PRVC vent mode. 3. ETOH withdrawal precautions. 4. ABG after 4 hours. 5. Maintenance iv fluid. 6. Pepcid. 7. Heparin SQ for DVT px. 8. Bronchodilators. Overall impression: Patient is critically ill with respiratory failure requiring intubation and ventilator support. Underlying substrate of morbid obesity and ETOH intoxication predisposes her to CO2 retention. Critical Care 38 mins Problem Qualifiers (1) Alcohol intoxication: Qualified Code: F10.129 - Alcohol intoxication, with unspecified complication Waqar Vega MD Nov 02, 2016 02:34
[2016-11-02] MEDS: SODIUM CHLORIDE 0.9% FLUSH 5 ML FLUSH IVF PRN (02:36)
[2016-11-02] MEDS ORDERED: ONDANSETRON HCL 4 MG/2 ML VIAL IV PRN (02:45)
[2016-11-02] MEDS ORDERED: SODIUM CHLORIDE 0.9% FLUSH 5 ML FLUSH IV FLUSH PRN (02:45)
[2016-11-02] MEDS ORDERED: RESP: ALBUTEROL 2.5 MG/IPRATROPIUM 0.5 MG NEB (PRN) INH (02:45)
[2016-11-02] MEDS ORDERED: CHLORHEXIDINE GLUCONATE 2 % 1 PACK (2 CLOTHS) TOP PRN (02:45)
[2016-11-02] MEDS ORDERED: MISCELLANEOUS NURSING INFORMATION XX SCH (02:45)
[2016-11-02] MEDS: RESP: ALBUTEROL 2.5 MG/IPRATROPIUM 0.5 MG NEB (SCH) INH ×2 (02:53→02:54)
--- NOTE | 2016-11-02 02:54 | RADRPT ---
EXAM DATE/TIME: 11/02/2016 02:34 [facility] COMPARISON: CHEST SINGLE AP, November 01, 2016, 22:28. INDICATIONS : Short of breath. Post intubation. MEDICAL HISTORY : None. SURGICAL HISTORY : None. ENCOUNTER: Initial ACUITY: 1 day PAIN SCORE: Non-responsive. LOCATION: Bilateral chest FINDINGS: A single view of the chest demonstrates the lungs to be symmetrically aerated with some atelectatic c hanges just above the left hemidiaphragm. No confluent infiltrate. Heart size is prominent but well c ompensated. Interval placement of an endotracheal tube with the tip at the ostium of the right mainst em bronchus. This should probably be backed off 1-2 cm. Interval placement of a nasogastric tube with the tip entering the stomach and curled in the gastric fundus. CONCLUSION: 1. Endotracheal tube with the tip at the ostium of the right mainstem bronchus. This should be backed off 1-2 cm. 2. Mild atelectatic changes above the left hemidiaphragm. Lungs are otherwise clear. 3. Compensated cardiomegaly Vincent Willson MD on November 02, 2016 at 2:49 Board Certified Radiologist. This report was verified electronically.
[2016-11-02] MEDS ORDERED: GLUCAGON 1 MG/ML VIAL OTHER PRN (03:00)
[2016-11-02] MEDS ORDERED: DEXTROSE 50% IN WATER 50 ML VIAL(D50) IV PUSH PRN (03:00)
[2016-11-02] MEDS: SODIUM CHLOR 0.9% 1000 ML INJ 1,000 ML IV SCH ×2 (03:36→15:00)
[2016-11-02] MEDS: INSULIN ASPART SUPPLEMENTAL SCALE SQ SCH ×4 (03:37→21:00)
[2016-11-02] MEDS: ENOXAPARIN SODIUM 40 MG/0.4 ML SYRINGE SQ SCH (03:37)
[2016-11-02] MEDS: PROPOFOL 1000 MG/100 ML INJ 100 ML IV SCH ×7 (04:36→20:50)
[2016-11-02 05:13] LABS: BLOOD GAS BASE EXCESS 6.8 mmol/L (-2-2); BLOOD GAS HCO3 32 mmol/L (22-26); BLOOD GAS METHEMOGLOBIN 2.1 % (0-2); BLOOD GAS O2 HGB SATURATION 93 % (90-100); BLOOD GAS OXYGEN CONTENT 19.1 Vol % (12.0-20.0); BLOOD GAS PCO2 57 mmHg (38-42); BLOOD GAS PO2 95 mmHG (61-120); BLOOD GAS TOTAL HGB 14.5 G/DL (12.0-16.0); CRITICAL VALUE YES; OXYGEN DEVICE VENTILATOR; TEMP CORR TO 98.6
[2016-11-02 05:14] LABS: DRAW SITE LT RADIAL; FIO2 100 %; NUMBER OF ARTERIAL PUNCTURES 1; STAT NO; ULNAR PULSE PRESENT; VENT SETTINGS PRVC
[2016-11-02] MEDS: LEVOTHYROXINE SODIUM 100 MCG TAB PO SCH (06:00)
[2016-11-02] MEDS ORDERED: IOHEXOL 350 MG/ML 10 ML VIAL (for RAD DIAG) IV ONE (06:02)
[2016-11-02] MEDS: CHLORHEXIDINE GLUCONATE 2 % 1 PACK (2 CLOTHS) TOP SCH (06:30)
--- NOTE | 2016-11-02 06:31 | RADRPT ---
EXAM DATE/TIME: 11/02/2016 05:51 [facility] COMPARISON: CT PULMONARY ANGIOGRAM, July 31, 2015, 16:13. INDICATIONS : Short of breath for four days. Evaluate for pulmonary emoblism. IV CONTRAST: 75 cc Omnipaque 350 (iohexol) IV RADIATION DOSE: 23.38 CTDIvol (mGy) MEDICAL HISTORY : Cardiovascular disease. Hypertension. Chronic obstructive pulmonary disease.Diabetic SURGICAL HISTORY : None. ENCOUNTER: Initial ACUITY: 4 - 6 days PAIN SCALE: 0/10 LOCATION: chest TECHNIQUE: Volumetric scanning of the chest was performed using a pulmonary embolism protocol MIP images were re constructed. Using automated exposure control and adjustment of the mA and/or kV according to patien t size, radiation dose was kept as low as reasonably achievable to obtain optimal diagnostic quality images. FINDINGS: PULMONARY ARTERIES: No filling defects are seen in the pulmonary arteries through the segmental level. LUNGS: Bibasilar atelectatic changes, left greater than right.. PLEURAE: There is no pleural thickening or pleural effusion. MEDIASTINUM: There is good visualization of the great vessels of the middle mediastinum. No evidence of mediastin al or hilar adenopathy/mass. Heart size is prominent. Endotracheal tube is identified with the tip at the level of the magdy, near the origin of the right mainstem bronchus. MUSCULOSKELETAL: Within normal limits for patient age. MISCELLANEOUS: The visualized upper abdominal organs demonstrate no acute abnormality. CONCLUSION: 1. Bibasilar atelectatic changes, left greater than right. 2. Endotracheal tube is identified with the tip at the level of the magdy and just entering the righ t mainstem bronchus. This should probably be backed off a centimeter or 2. 3. No pulmonary embolus. 4. Compensated cardiomegaly. Vincent Willson MD on November 02, 2016 at 6:25 Board Certified Radiologist. This report was verified electronically.
[2016-11-02] MEDS: CHLORHEXIDINE 0.12% (ORAL KIT) 15 ML CUP MT SCH ×2 (08:37→20:00)
[2016-11-02] MEDS: FAMOTIDINE 20 MG/2 ML VIAL IV PUSH SCH ×2 (08:37→20:50)
[2016-11-02] MEDS: SODIUM CHLORIDE 0.9% FLUSH 5 ML FLUSH IV FLUSH SCH ×2 (08:38→20:50)
[2016-11-02] MEDS: RESP: ALBUTEROL 2.5 MG/IPRATROPIUM 0.5 MG NEB (SCH) NEB ×2 (16:42→19:55)
[2016-11-02] MEDS ORDERED: MIDAZOLAM HCL 2 MG/2 ML VIAL IV ONE (18:00)
[2016-11-02] MEDS ORDERED: MIDAZOLAM 100 MG/ML INJ 100 ML IV SCH (18:00)
--- NOTE | 2016-11-02 18:35 | EKG ---
Date Performed: 11/01/2016 Time Performed: 22:27:27 PTAGE: 46 years EKG: Sinus rhythm NORMAL ECG PREVIOUS TRACING : 08/07/2016 17.58 DOCTOR: Gilmer Siegel Interpretating Date/Time 11/02/2016 18:34:05
[2016-11-03] VITALS (18 sets, daily range): BP systolic 111–139; BP diastolic 56–74; PULSE 55–83; RESP 14–21; TEMP 98.2–98.9; O2SAT 95–99
[2016-11-03] MEDS: SODIUM CHLOR 0.9% 1000 ML INJ 1,000 ML IV SCH (02:06)
[2016-11-03] MEDS: ENOXAPARIN SODIUM 40 MG/0.4 ML SYRINGE SQ SCH (02:06)
[2016-11-03] MEDS: PROPOFOL 1000 MG/100 ML INJ 100 ML IV SCH ×3 (02:07→08:21)
[2016-11-03] MEDS: INSULIN ASPART SUPPLEMENTAL SCALE SQ SCH ×4 (03:00→21:00)
[2016-11-03] MEDS: RESP: ALBUTEROL 2.5 MG/IPRATROPIUM 0.5 MG NEB (SCH) NEB ×4 (03:37→21:08)
[2016-11-03] MEDS: CHLORHEXIDINE GLUCONATE 2 % 1 PACK (2 CLOTHS) TOP SCH (04:00)
[2016-11-03 04:22] LABS: AUTOMATED NEUTROPHIL # 10.2 TH/MM3 (1.8-7.7); BASOPHIL # 0.1 TH/MM3 (0-0.2); BASOPHIL % 1.1 % (0.0-2.0); HEMO FLAGS DIFF FINAL; LYMPH % 7.3 % (9.0-44.0); LYMPHOCYTE # 0.9 TH/MM3 (1.0-4.8); MEAN CELL VOLUME 92.5 FL (80.0-100.0); MEAN CORPUSCULAR HEMOGLOBIN 29.9 PG (27.0-34.0); MEAN CORPUSCULAR HGB CONC 32.3 % (32.0-36.0); MONO % 5.4 % (0.0-8.0); NEUT % 86.2 % (16.0-70.0); PLATELET COUNT 160 TH/MM3 (150-450); RED BLOOD COUNT 4.55 MIL/MM3 (4.00-5.30); RED CELL DISTRIBUTION WIDTH 14.1 % (11.6-17.2); WHITE BLOOD COUNT 11.8 TH/MM3 (4.0-11.0)
[2016-11-03] MEDS: LEVOTHYROXINE SODIUM 100 MCG TAB PO SCH (04:28)
[2016-11-03 04:42] LABS: BICARBONATE 31.2 MEQ/L (21.0-32.0); MAGNESIUM 1.9 MG/DL (1.5-2.5)
[2016-11-03] MEDS: CHLORHEXIDINE 0.12% (ORAL KIT) 15 ML CUP MT SCH ×2 (08:00→20:00)
[2016-11-03] MEDS: SODIUM CHLORIDE 0.9% FLUSH 5 ML FLUSH IV FLUSH SCH ×2 (08:21→20:59)
[2016-11-03] MEDS: FAMOTIDINE 20 MG/2 ML VIAL IV PUSH SCH ×2 (08:21→20:59)
--- NOTE | 2016-11-03 08:53 | HHI.CCPN ---
Subjective Remarks/Hospital Course Brought in by EMS for worsening respiratory distress. Despite BiPAP NIV she progressed to hypercapnic respiratory failure and required intubation and mechanical ventilation. She has had several previous admissions for similar episodes. ETOH elevated at 193. Body habitus would promote obesity- hypoventilation syndrome. SUBJ 11/03/16: Patient remains intubated sedated, FiO2 down to 50%. PEEP remains at 12. Heavy sedation limits neuro exam Objective Vital Signs Date Time Temp Pulse Resp B/P Pulse Ox O2 Delivery O2 Flow Rate FiO2 11/03/16 07:41 98 50 11/03/16 06:00 98.9 69 14 116/57 11/02/16 19:00 Mechanical Ventilator 11/01/16 23:30 4 Intake and Output 11/02/16 11/02/16 11/03/16 08:00 16:00 00:00 Intake Total 0 ml 1287 ml 1219 ml Output Total 800 ml 725 ml 460 ml Balance -800 ml 562 ml 759 ml Result Diagram: 11/03/16 0341 11/03/16 0341 Objective Remarks Gen: Intubated heavily sedated Head: Flushed. Diaphoretic Neck: Supple, orally intubated. Lungs: Air entry equal bilaterally with no wheezes or crackles Heart: NL S1S2, RRR, no murmur. Abdomen: Obese, soft, no guarding, BS active. Extremities: Warm, well perfused. Neuro: Sedated on vent. SLADE. Moves extremities spontaneously A/P Problem List: (1) Hypercapnic respiratory failure ICD Code: J96.92 Status: Acute (2) Morbid obesity ICD Code: E66.01 Status: Chronic (3) Alcohol intoxication ICD Code: F10.129 Status: Acute Assessment and Plan Plan: NEURO: -Currently sedated with propofol and Versed. Hold propofol and Versed -Start Precedex to facilitate ventilator weaning -Supplement thiamine, watch for alcohol withdrawal RESP: -Continue PRVC mode of ventilation, initiate spontaneous breathing trials -DuoNeb every 6 hours scheduled and when necessary, ventilator bundle CV: -Normal saline IV fluids at 84 mL per hour, discontinue GI: -Nothing by mouth, IV famotidine. Start tube feeds if not extubated today : -Monitor renal function closely. Hunter catheter. ID: -Watch closely for infection. No antibiotics at this time HEME: -Monitor CBC, CMP, coags ENDO: -Electrolyte replacement per protocol PROPH: -Bilateral lower extremity SCDs. Heparin 500 sq q8.. Protonix 40 mg IV qd LINES: -Utilize peripheral IVs, central line if needed CC time 30 min Problem Qualifiers (1) Hypercapnic respiratory failure: Qualified Code: J96.22 - Acute on chronic respiratory failure with hypercapnia (2) Alcohol intoxication: Qualified Code: F10.129 - Alcohol intoxication, with unspecified complication Arnold Martell MD Nov 03, 2016 08:53
[2016-11-03] MEDS ORDERED: DEXMEDETOMIDINE INJ 50 ML IV SCH (09:00)
[2016-11-03] MEDS ORDERED: MAGNESIUM SULFATE INJ 4 GM in SODIUM CHLORIDE 0.9% INJ 92 ML IV PRN (09:15)
[2016-11-03] MEDS ORDERED: POTASSIUM CHLOR 40 MEQ PREMIX 100 ML IV PRN ×2 (09:15)
[2016-11-03] MEDS ORDERED: POTASSIUM PHOSPHATE MONOBASIC 500 MG TAB PO PRN (09:15)
[2016-11-03] MEDS ORDERED: POTASSIUM PHOSPHATE MONOBASIC 500 MG TAB PO/TUBE PRN (09:15)
[2016-11-03] MEDS ORDERED: MAGNESIUM OXIDE 400 MG TAB PO PRN (09:15)
[2016-11-03] MEDS ORDERED: SODIUM PHOSPHATE INJ 30 MMOL in SODIUM CHLOR 0.9% 250 ML INJ 240 ML IV PRN (09:15)
[2016-11-03] MEDS ORDERED: POTASSIUM PHOSPHATE INJ 30 MMOL in SODIUM CHLOR 0.9% 250 ML INJ 250 ML IV PRN (09:15)
[2016-11-03] MEDS ORDERED: POTASSIUM CHLOR 20 MEQ PREMIX 100 ML IV PRN ×2 (09:15)
[2016-11-03] MEDS ORDERED: MAGNESIUM SULFATE INJ 2 GM in SODIUM CHLORIDE 0.9% INJ 96 ML IV PRN (09:15)
[2016-11-03] MEDS: THIAMINE INJ 100 MG in SODIUM CHLORIDE 0.9% INJ 100 ML IV SCH (11:08)
[2016-11-03] MEDS: ACETAMINOPHEN 325 MG TAB PO PRN (15:46)
[2016-11-04] VITALS (14 sets, daily range): BP systolic 99–154; BP diastolic 56–69; PULSE 58–84; RESP 13–18; TEMP 97.2–98.2; O2SAT 94–98
[2016-11-04] MEDS: ENOXAPARIN SODIUM 40 MG/0.4 ML SYRINGE SQ SCH (02:45)
[2016-11-04] MEDS: INSULIN ASPART SUPPLEMENTAL SCALE SQ SCH ×3 (03:00→16:00)
[2016-11-04] MEDS: RESP: ALBUTEROL 2.5 MG/IPRATROPIUM 0.5 MG NEB (SCH) NEB ×4 (03:11→21:29)
[2016-11-04] MEDS: ACETAMINOPHEN 325 MG TAB PO PRN (03:26)
[2016-11-04] MEDS: CHLORHEXIDINE GLUCONATE 2 % 1 PACK (2 CLOTHS) TOP SCH (04:00)
[2016-11-04] MEDS: LEVOTHYROXINE SODIUM 100 MCG TAB PO SCH (06:00)
[2016-11-04] MEDS: CHLORHEXIDINE 0.12% (ORAL KIT) 15 ML CUP MT SCH ×2 (08:00→19:48)
[2016-11-04] MEDS ORDERED: LORazepam 2 MG TAB PO PRN (08:15)
[2016-11-04] MEDS ORDERED: LORazepam 2 MG/ML VIAL IV PUSH PRN ×4 (08:15)
[2016-11-04] MEDS ORDERED: MORPHINE SULFATE 4 MG/ML INJ IV PRN (08:15)
--- NOTE | 2016-11-04 08:18 | HHI.CCPN ---
Subjective Remarks/Hospital Course Brought in by EMS for worsening respiratory distress. Despite BiPAP NIV she progressed to hypercapnic respiratory failure and required intubation and mechanical ventilation. She has had several previous admissions for similar episodes. ETOH elevated at 193. Body habitus would promote obesity- hypoventilation syndrome. 11/03/16: Patient remains intubated sedated, FiO2 down to 50%. PEEP remains at 12. Heavy sedation limits neuro exam Subjective 11/04: Extubated yesterday without complication. Complaining of muscular skeletal chest pain currently. Tolerating diet. No bowel movement Objective Vital Signs Date Time Temp Pulse Resp B/P Pulse Ox O2 Delivery O2 Flow Rate FiO2 11/04/16 04:26 20 11/04/16 04:00 64 11/04/16 04:00 97.7 100/56 96 11/03/16 21:08 Nasal Cannula 3.00 11/03/16 11:20 45 Intake and Output 11/03/16 11/03/16 11/04/16 08:00 16:00 00:00 Intake Total 1242 ml 690 ml Output Total 675 ml 400 ml Balance 567 ml 290 ml Result Diagram: 11/03/16 0341 11/03/16 0341 Imaging Last Impressions Chest X-Ray 11/02/16 0202 Signed Impressions: Service Date/Time: Wednesday, November 02, 2016 02:34 - CONCLUSION: 1. Endotracheal tube with the tip at the ostium of the right mainstem bronchus. This should be backed off 1-2 cm. 2. Mild atelectatic changes above the left hemidiaphragm. Lungs are otherwise clear. 3. Compensated cardiomegaly Vincent Willson MD CT Angiography 11/02/16 0000 Signed Impressions: Service Date/Time: Wednesday, November 02, 2016 05:51 - CONCLUSION: 1. Bibasilar atelectatic changes, left greater than right. 2. Endotracheal tube is identified with the tip at the level of the magdy and just entering the right mainstem bronchus. This should probably be backed off a centimeter or 2. 3. No pulmonary embolus. 4. Compensated cardiomegaly. Vincent Willson MD Objective Remarks GENERAL: 46-year-old female, resting in bed on nasal cannula distress SKIN: Warm and dry. HEAD: Atraumatic. Normocephalic. EYES: Pupils equal and round about 5 mm bilaterally and reactive. No scleral icterus. No injection or drainage. ENT: No nasal bleeding or discharge. Mucous membranes pink and moist. NECK: Trachea midline. No JVD. Supple. Obese. CARDIOVASCULAR: Regular rate and rhythm. S1, S2. No S4. RESPIRATORY: No accessory muscle use. Clear to auscultation. Breath sounds equal bilaterally. GASTROINTESTINAL: Abdomen soft, non-tender, obese. Hypoactive bowel sounds. MUSCULOSKELETAL: Extremities with bilateral nonpitting edema. No obvious deformities. NEUROLOGICAL: Awake and alert. No obvious cranial nerve deficits. Motor grossly within normal limits. Five out of 5 muscle strength in the arms and legs. Normal speech. PSYCHIATRIC: Anxious. A/P Problem List: (1) Hypercapnic respiratory failure ICD Code: J96.92 Status: Acute (2) Morbid obesity ICD Code: E66.01 Status: Chronic (3) Alcohol intoxication ICD Code: F10.129 Status: Acute Assessment and Plan NEURO: EtOH Acetaminophen for fever [place]/morphine for pain management Monitor for DTs CIWA protocol initiated -Supplement thiamine, and MVI and folate RESP: Acute hypercapnic respiratory failure -resolving Likely KATIE -Nasal cannula to maintain saturations greater than equal to 92% - Incentive spirometry while awake -DuoNeb every 6 hours scheduled and when necessary CV: -Normal saline IV fluids at 84 mL per hour, discontinue Currently not requiring vasopressors and/or and hypertensives. GI: ADA diet Protonix for GI prophylaxis Colace/as needed Senokot for bowel regimen : -Monitor renal function closely. Hunter catheter. ID: -Watch closely for infection. No antibiotics at this time HEME: Leukocytosis -Monitor CBC, CMP, coags ENDO: Diabetes mellitus Hypothyroidism Sliding scale insulin Accu-Cheks every 6 before meals/at bedtime to maintain euglycemia Holding metformin -Electrolyte replacement as clinically indicated Continue Levoxyl 100 oziel grams by mouth daily PROPH: -Bilateral lower extremity SCDs. Heparin 500 sq q8. Protonix 40 mg IV qd LINES: -Utilize peripheral IVs, central line if needed Critical Care: Level II Patient is stable from a critical care medicine standpoint. We will assign care to hospitalist in a.m. 11/05 Problem Qualifiers (1) Hypercapnic respiratory failure: Qualified Code: J96.22 - Acute on chronic respiratory failure with hypercapnia (2) Alcohol intoxication: Qualified Code: F10.129 - Alcohol intoxication, with unspecified complication Xu Dee MD Nov 04, 2016 08:18
[2016-11-04] MEDS: THIAMINE INJ 100 MG in SODIUM CHLORIDE 0.9% INJ 100 ML IV SCH (08:34)
[2016-11-04] MEDS: PANTOPRAZOLE SOD 40 MG DELAYED RELEASE TAB PO SCH (08:34)
[2016-11-04] MEDS: MULTIVITAMIN TAB PO SCH (08:34)
[2016-11-04] MEDS: FOLIC ACID 1 MG TAB PO SCH (08:35)
[2016-11-04] MEDS: SODIUM CHLORIDE 0.9% FLUSH 5 ML FLUSH IV FLUSH SCH ×2 (08:35→20:08)
[2016-11-04] MEDS: DOCUSATE SODIUM 100 MG CAP PO SCH ×2 (08:40→20:07)
[2016-11-04] MEDS ORDERED: LORazepam 1 MG TAB PO PRN (09:00)
[2016-11-04] MEDS ORDERED: SENNOSIDES 8.6 MG TAB PO PRN (09:00)
[2016-11-04] MEDS ORDERED: ONDANSETRON HCL 4 MG/2 ML VIAL IV PRN (09:00)
[2016-11-04] MEDS ORDERED: FLUMAZENIL 0.5 MG/5 ML VIAL IV PUSH PRN (09:00)
[2016-11-04] MEDS ORDERED: RESP: ALBUTEROL 2.5 MG/IPRATROPIUM 0.5 MG NEB (PRN) INH (09:00)
[2016-11-04] MEDS: ACETAMINOPHEN/HYDROcodone 325 MG/5 MG TAB PO PRN ×3 (11:02→20:08)
[2016-11-05] VITALS (14 sets, daily range): BP systolic 94–136; BP diastolic 54–74; PULSE 63–97; RESP 11–25; TEMP 97.6–98.7; O2SAT 92–100
[2016-11-05] MEDS: INSULIN ASPART SUPPLEMENTAL SCALE SQ SCH ×5 (00:30→20:57)
[2016-11-05] MEDS: ACETAMINOPHEN/HYDROcodone 325 MG/5 MG TAB PO PRN ×4 (00:33→19:49)
[2016-11-05] MEDS: CHLORHEXIDINE GLUCONATE 2 % 1 PACK (2 CLOTHS) TOP SCH (02:59)
[2016-11-05] MEDS: ENOXAPARIN SODIUM 40 MG/0.4 ML SYRINGE SQ SCH (03:08)
[2016-11-05] MEDS: RESP: ALBUTEROL 2.5 MG/IPRATROPIUM 0.5 MG NEB (SCH) NEB ×4 (03:39→22:35)
[2016-11-05 04:39] LABS: AUTOMATED NEUTROPHIL # 5.3 TH/MM3 (1.8-7.7); BASOPHIL % 0.4 % (0.0-2.0); EOSINOPHIL # 0.1 TH/MM3 (0-0.4); EOSINOPHIL % 1.8 % (0.0-4.0); HEMATOCRIT 40.5 % (35.0-46.0); HEMO FLAGS DIFF FINAL; LYMPHOCYTE # 1.1 TH/MM3 (1.0-4.8); MEAN CELL VOLUME 93.7 FL (80.0-100.0); MEAN CORPUSCULAR HEMOGLOBIN 30.1 PG (27.0-34.0); MEAN CORPUSCULAR HGB CONC 32.1 % (32.0-36.0); MONO % 5.2 % (0.0-8.0); NEUT % 76.6 % (16.0-70.0); PLATELET COUNT 137 TH/MM3 (150-450); RED BLOOD COUNT 4.33 MIL/MM3 (4.00-5.30); RED CELL DISTRIBUTION WIDTH 13.9 % (11.6-17.2); WHITE BLOOD COUNT 6.9 TH/MM3 (4.0-11.0)
[2016-11-05] MEDS: LEVOTHYROXINE SODIUM 100 MCG TAB PO SCH (05:18)
[2016-11-05 06:02] LABS: ALKALINE PHOSPHATASE 116 U/L (45-117); ALT (GPT) 12 U/L (10-53); ANION GAP 7 MEQ/L (5-15); AST (GOT) 9 U/L (15-37); BICARBONATE 30.7 MEQ/L (21.0-32.0); BLOOD UREA NITROGEN 12 MG/DL (7-18); CHLORIDE 102 MEQ/L (98-107); GLOMERULAR FILTRATION RATE 103 ML/MIN (>89); MAGNESIUM 2.1 MG/DL (1.5-2.5); SODIUM (NA) 140 MEQ/L (136-145); TOTAL BILIRUBIN ADULT 0.3 MG/DL (0.2-1.0)
[2016-11-05] MEDS: CHLORHEXIDINE 0.12% (ORAL KIT) 15 ML CUP MT SCH ×2 (08:57→20:00)
[2016-11-05] MEDS: SODIUM CHLORIDE 0.9% FLUSH 5 ML FLUSH IV FLUSH SCH ×2 (08:58→20:58)
[2016-11-05] MEDS: FOLIC ACID 1 MG TAB PO SCH (09:15)
[2016-11-05] MEDS: THIAMINE INJ 100 MG in SODIUM CHLORIDE 0.9% INJ 100 ML IV SCH (09:15)
[2016-11-05] MEDS: DOCUSATE SODIUM 100 MG CAP PO SCH ×2 (09:16→20:57)
[2016-11-05] MEDS: MULTIVITAMIN TAB PO SCH (09:16)
[2016-11-05] MEDS: PANTOPRAZOLE SOD 40 MG DELAYED RELEASE TAB PO SCH (09:16)
--- NOTE | 2016-11-05 13:08 | HHI.CCPN ---
Subjective Remarks/Hospital Course Brought in by EMS for worsening respiratory distress. Despite BiPAP NIV she progressed to hypercapnic respiratory failure and required intubation and mechanical ventilation. She has had several previous admissions for similar episodes. ETOH elevated at 193. Body habitus would promote obesity- hypoventilation syndrome. 11/03/16: Patient remains intubated sedated, FiO2 down to 50%. PEEP remains at 12. Heavy sedation limits neuro exam 11/04: Extubated yesterday without complication. Complaining of muscular skeletal chest pain currently. Tolerating diet. No bowel movement Subjective 11/05: Resting currently nasal cannula. No acute distress. No acute issues overnight. Muscle skeletal persist pain Objective Vital Signs Date Time Temp Pulse Resp B/P Pulse Ox O2 Delivery O2 Flow Rate FiO2 11/05/16 10:16 22 11/05/16 09:39 99 Nasal Cannula 2.00 11/05/16 08:00 94 11/05/16 08:00 98.7 136/74 11/05/16 07:00 50 Intake and Output 11/04/16 11/04/16 11/05/16 08:00 16:00 00:00 Intake Total 1230 ml 480 ml Output Total 375 ml 300 ml Balance 855 ml 180 ml Result Diagram: 11/05/16 0351 11/05/16 0351 Imaging Last Impressions Chest X-Ray 11/02/16 0202 Signed Impressions: Service Date/Time: Wednesday, November 02, 2016 02:34 - CONCLUSION: 1. Endotracheal tube with the tip at the ostium of the right mainstem bronchus. This should be backed off 1-2 cm. 2. Mild atelectatic changes above the left hemidiaphragm. Lungs are otherwise clear. 3. Compensated cardiomegaly Vincent Willson MD CT Angiography 11/02/16 0000 Signed Impressions: Service Date/Time: Wednesday, November 02, 2016 05:51 - CONCLUSION: 1. Bibasilar atelectatic changes, left greater than right. 2. Endotracheal tube is identified with the tip at the level of the magdy and just entering the right mainstem bronchus. This should probably be backed off a centimeter or 2. 3. No pulmonary embolus. 4. Compensated cardiomegaly. Vincent Willson MD Objective Remarks GENERAL: 46-year-old female, resting in bed on nasal cannula distress SKIN: Warm and dry. HEAD: Atraumatic. Normocephalic. EYES: Pupils equal and round about 5 mm bilaterally and reactive. No scleral icterus. No injection or drainage. ENT: No nasal bleeding or discharge. Mucous membranes pink and moist. NECK: Trachea midline. No JVD. Supple. Obese. CARDIOVASCULAR: Regular rate and rhythm. S1, S2. No S4. RESPIRATORY: No accessory muscle use. Clear to auscultation. Breath sounds equal bilaterally. GASTROINTESTINAL: Abdomen soft, non-tender, obese. Hypoactive bowel sounds. MUSCULOSKELETAL: Extremities with bilateral nonpitting edema. No obvious deformities. NEUROLOGICAL: Awake and alert. No obvious cranial nerve deficits. Motor grossly within normal limits. Five out of 5 muscle strength in the arms and legs. Normal speech. PSYCHIATRIC: Anxious. Urinary Catheter: Yes Assessment to: Continue Hunter insert reason: Prolonged Immobilization Vascular Central Line Catheter: No Assessment to: Continue A/P Problem List: (1) Hypercapnic respiratory failure ICD Code: J96.92 Status: Acute (2) Morbid obesity ICD Code: E66.01 Status: Chronic (3) Alcohol intoxication ICD Code: F10.129 Status: Acute Assessment and Plan NEURO: EtOH Acetaminophen for fever [place]/morphine for pain management Monitor for DTs CIWA protocol initiated -Supplement thiamine, and MVI and folate RESP: Acute hypercapnic respiratory failure -resolving Likely KATIE -Nasal cannula to maintain saturations greater than equal to 92% - Incentive spirometry while awake -DuoNeb every 6 hours scheduled and when necessary CV: Currently not requiring vasopressors and/or and hypertensives. GI: ADA diet Protonix for GI prophylaxis Colace/as needed Senokot for bowel regimen : -Monitor renal function closely. Hunter catheter. ID: -Watch closely for infection. No antibiotics at this time HEME: Leukocytosis - resolved -Monitor CBC, CMP, coags ENDO: Diabetes mellitus Hypothyroidism Sliding scale insulin Accu-Cheks every 6 before meals/at bedtime to maintain euglycemia Holding metformin -Electrolyte replacement as clinically indicated Continue Levoxyl 100 oziel grams by mouth daily PROPH: -Bilateral lower extremity SCDs. Heparin 500 sq q8. Protonix 40 mg IV qd LINES: -Utilize peripheral IVs, central line if needed Critical Care: Level II Patient is stable from a critical care medicine standpoint. We will assign care to hospitalist in a.m. 3/12 Problem Qualifiers (1) Hypercapnic respiratory failure: Qualified Code: J96.22 - Acute on chronic respiratory failure with hypercapnia (2) Alcohol intoxication: Qualified Code: F10.129 - Alcohol intoxication, with unspecified complication Xu Dee MD Nov 05, 2016 13:07
[2016-11-05] MEDS ORDERED: BISACODYL 10 MG SUPP PR PRN (14:30)
[2016-11-05] MEDS ORDERED: LACTULOSE SYRUP 20 GM/30 ML CUP PO PRN (14:30)
[2016-11-06] VITALS (8 sets, daily range): BP systolic 118–128; BP diastolic 50–91; PULSE 74–88; RESP 18–22; TEMP 97.7–98.7; O2SAT 92–99
[2016-11-06] MEDS: ACETAMINOPHEN/HYDROcodone 325 MG/5 MG TAB PO PRN ×5 (00:20→20:55)
[2016-11-06] MEDS: CHLORHEXIDINE GLUCONATE 2 % 1 PACK (2 CLOTHS) TOP SCH (01:06)
[2016-11-06] MEDS: ENOXAPARIN SODIUM 40 MG/0.4 ML SYRINGE SQ SCH (03:54)
[2016-11-06] MEDS: RESP: ALBUTEROL 2.5 MG/IPRATROPIUM 0.5 MG NEB (SCH) NEB ×4 (04:39→21:33)
[2016-11-06] MEDS: INSULIN ASPART SUPPLEMENTAL SCALE SQ SCH ×4 (05:04→20:57)
[2016-11-06] MEDS: LEVOTHYROXINE SODIUM 100 MCG TAB PO SCH (05:04)
--- NOTE | 2016-11-06 06:45 | RADRPT ---
EXAM DATE/TIME: 11/06/2016 06:06 [facility] COMPARISON: CHEST SINGLE AP, November 02, 2016, 2:34. INDICATIONS : Shortness of breath. MEDICAL HISTORY : Hypertension. Chronic obstructive pulmonary disease. Cardiovascular disease. SURGICAL HISTORY : None. ENCOUNTER: Subsequent ACUITY: 4 - 6 days PAIN SCORE: Non-responsive. LOCATION: Bilateral chest FINDINGS: The patient is rotated towards the right. The lungs are symmetrically aerated. No definite infiltra faustino seen. The heart is enlarged, similar to prior. CONCLUSION: No infiltrates seen. Abdulkadir Gómez MD on November 06, 2016 at 6:43 Board Certified Radiologist. This report was verified electronically.
[2016-11-06] MEDS: CHLORHEXIDINE 0.12% (ORAL KIT) 15 ML CUP MT SCH ×2 (08:00→20:00)
[2016-11-06 08:28] LABS: AUTOMATED NEUTROPHIL # 4.6 TH/MM3 (1.8-7.7); BASOPHIL % 0.2 % (0.0-2.0); EOSINOPHIL # 0.1 TH/MM3 (0-0.4); EOSINOPHIL % 1.9 % (0.0-4.0); HEMATOCRIT 37.7 % (35.0-46.0); HEMO FLAGS DIFF FINAL; LYMPH % 16.6 % (9.0-44.0); MEAN CELL VOLUME 93.7 FL (80.0-100.0); MEAN CORPUSCULAR HEMOGLOBIN 29.6 PG (27.0-34.0); MEAN CORPUSCULAR HGB CONC 31.6 % (32.0-36.0); MONO % 5.9 % (0.0-8.0); NEUT % 75.4 % (16.0-70.0); PLATELET COUNT 144 TH/MM3 (150-450); RED BLOOD COUNT 4.02 MIL/MM3 (4.00-5.30); RED CELL DISTRIBUTION WIDTH 13.6 % (11.6-17.2); WHITE BLOOD COUNT 6.1 TH/MM3 (4.0-11.0)
[2016-11-06 08:45] LABS: AST (GOT) 11 U/L (15-37); BLOOD UREA NITROGEN 12 MG/DL (7-18); CHLORIDE 99 MEQ/L (98-107); GLOMERULAR FILTRATION RATE 85 ML/MIN (>89); MAGNESIUM 1.9 MG/DL (1.5-2.5); POTASSIUM 4.1 MEQ/L (3.5-5.1); SODIUM (NA) 141 MEQ/L (136-145)
[2016-11-06 08:46] LABS: ANION GAP 7 MEQ/L (5-15); BICARBONATE 35.5 MEQ/L (21.0-32.0)
[2016-11-06 08:54] LABS: ALKALINE PHOSPHATASE 102 U/L (45-117); ALT (GPT) 12 U/L (10-53); TOTAL BILIRUBIN ADULT 0.3 MG/DL (0.2-1.0)
[2016-11-06] MEDS: SENNOSIDES 8.6 MG TAB PO SCH (09:48)
[2016-11-06] MEDS: MULTIVITAMIN TAB PO SCH (09:48)
[2016-11-06] MEDS: FOLIC ACID 1 MG TAB PO SCH (09:48)
[2016-11-06] MEDS: PANTOPRAZOLE SOD 40 MG DELAYED RELEASE TAB PO SCH (09:48)
[2016-11-06] MEDS: THIAMINE HCL 100 MG TAB PO SCH (09:48)
[2016-11-06] MEDS: SODIUM CHLORIDE 0.9% FLUSH 5 ML FLUSH IV FLUSH SCH ×2 (09:49→20:57)
[2016-11-06] MEDS: DOCUSATE SODIUM 100 MG CAP PO SCH ×2 (09:49→20:54)
[2016-11-06] MEDS: POLYETHYLENE GLYCOL 17 GM PKG PO SCH (09:49)
--- NOTE | 2016-11-06 11:56 | HHI.PR ---
Subjective Remarks Follow-up respiratory failure. Improved shortness of breath tolerating nasal cannula. She wants to go home. Reports that when she came in she was short of breath with wheezing discussed with RN Objective Vitals Vital Signs Date Time Temp Pulse Resp B/P Pulse Ox O2 Delivery O2 Flow Rate FiO2 11/06/16 08:46 94 Nasal Cannula 2.00 11/06/16 08:00 98.7 87 21 127/91 92 11/06/16 08:00 Nasal Cannula 2.00 11/06/16 04:00 98.6 88 18 119/50 96 11/06/16 00:00 97.9 74 18 125/58 93 11/05/16 22:35 95 Nasal Cannula 2.00 11/05/16 20:11 68 11/05/16 20:05 Nasal Cannula 2.00 11/05/16 20:00 97.9 63 18 108/61 98 11/05/16 16:30 97.7 76 18 113/61 94 11/05/16 16:00 97.8 77 25 107/58 95 11/05/16 16:00 78 11/05/16 14:00 75 11/05/16 12:00 78 11/05/16 12:00 97.7 78 21 94/54 96 I/O 11/05/16 11/05/16 11/05/16 11/06/16 11/06/16 11/06/16 07:00 15:00 23:00 07:00 15:00 23:00 Intake Total 240 ml 350 ml 482 ml 242 ml Output Total 700 ml 500 ml 550 ml 1250 ml Balance -460 ml -150 ml -68 ml -1008 ml Intake Oral 240 ml 240 ml 480 ml 240 ml IV Total 110 ml 2 ml 2 ml Output Urine Total 700 ml 500 ml 550 ml 1250 ml # Bowel Movements 0 0 0 0 Result Diagram: 11/06/1633 11/06/16632 Imaging Last Impressions Chest X-Ray 11/02/16201 Signed Impressions: Service Date/Time: Wednesday, November 02, 2016 02:34 - CONCLUSION: 1. Endotracheal tube with the tip at the ostium of the right mainstem bronchus. This should be backed off 1-2 cm. 2. Mild atelectatic changes above the left hemidiaphragm. Lungs are otherwise clear. 3. Compensated cardiomegaly Vincent Willson MD CT Angiography 11/02/16 0000 Signed Impressions: Service Date/Time: Wednesday, November 02, 2016 05:51 - CONCLUSION: 1. Bibasilar atelectatic changes, left greater than right. 2. Endotracheal tube is identified with the tip at the level of the magdy and just entering the right mainstem bronchus. This should probably be backed off a centimeter or 2. 3. No pulmonary embolus. 4. Compensated cardiomegaly. Vincent Willson MD Objective Remarks GENERAL: 46-year-old female on nasal cannula in no distress SKIN: Warm and dry. HEAD: Atraumatic. Normocephalic. EYES: Pupils equal and round about 5 mm bilaterally and reactive. No scleral icterus. No injection or drainage. ENT: No nasal bleeding or discharge. Mucous membranes pink and moist. NECK: Trachea midline. No JVD. Supple. Obese. CARDIOVASCULAR: Regular rate and rhythm. S1, S2. No S4. RESPIRATORY: No accessory muscle use. Clear to auscultation. Breath sounds equal bilaterally. GASTROINTESTINAL: Abdomen soft, non-tender, obese. Normal active bowel sounds. MUSCULOSKELETAL: Extremities with bilateral nonpitting edema. No obvious deformities. NEUROLOGICAL: Awake and alert. No obvious cranial nerve deficits. Motor grossly within normal limits. Five out of 5 muscle strength in the arms and legs. Normal speech. PSYCHIATRIC: Calm and cooperative Procedures Intubation A/P Problem List: (1) Hypercapnic respiratory failure ICD Code: J96.92 Status: Acute (2) COPD exacerbation ICD Code: J44.1 Status: Acute Assessment and Plan NEURO: EtOH Acetaminophen for fever [place]/morphine for pain management Monitor for DTs CIWA protocol initiated. Counseled -Supplement thiamine, and MVI and folate RESP: Acute hypercapnic respiratory failure -resolving COPD exacerbation. Resolved Likely KATIE -Nasal cannula to maintain saturations greater than equal to 92% -Incentive spirometry while awake -DuoNeb every 6 hours scheduled and when necessary -Repeat ABG. Walk test. Patient to follow-up outpatient for sleep study CV: Currently not requiring vasopressors and/or and hypertensives. GI: ADA diet Protonix for GI prophylaxis Colace/as needed Senokot for bowel regimen : -Monitor renal function closely. Hunter catheter discontinued. ID: -Watch closely for infection. No antibiotics at this time HEME: Leukocytosis - resolved -Monitor CBC, CMP, coags ENDO: Diabetes mellitus Hypothyroidism Sliding scale insulin Accu-Cheks every 6 before meals/at bedtime to maintain euglycemia Restart metformin -Electrolyte replacement as clinically indicated Continue Levoxyl 100 oziel grams by mouth daily PROPH: -Bilateral lower extremity SCDs. Heparin 500 sq q8. Protonix 40 mg qd LINES: -Utilize peripheral IVs, central line if needed Discharge Planning Possible discharge later today Problem Qualifiers (1) Hypercapnic respiratory failure: Qualified Code: J96.22 - Acute on chronic respiratory failure with hypercapnia Jose Longoria MD Nov 06, 2016 11:56
[2016-11-06 13:08] LABS: BLOOD GAS BASE EXCESS 8.7 mmol/L (-2-2); BLOOD GAS HCO3 34 mmol/L (22-26); BLOOD GAS METHEMOGLOBIN 0.8 % (0-2); BLOOD GAS O2 HGB SATURATION 94 % (90-100); BLOOD GAS OXYGEN CONTENT 17.1 Vol % (12.0-20.0); BLOOD GAS PCO2 61 mmHg (38-42); BLOOD GAS PO2 84 mmHg (61-120); BLOOD GAS TOTAL HGB 12.9 G/DL (12.0-16.0); TEMP CORR TO 98.6
[2016-11-06 13:09] LABS: CRITICAL VALUE YES; DRAW SITE LT RADIAL; LITER FLOW 2 L/M; NUMBER OF ARTERIAL PUNCTURES 1; OXYGEN DEVICE NASAL CANNULA; STAT NO; ULNAR PULSE PRESENT
[2016-11-06] MEDS ORDERED: TIOT1AER2 INH (13:55)
[2016-11-06] MEDS ORDERED: VENTAER INH (13:55)
[2016-11-06] MEDS ORDERED: HYDR-3516 PO (13:55)
[2016-11-06] MEDS ORDERED: IPRA17I INH (13:55)
--- NOTE | 2016-11-06 14:01 | HHI.DCPOC ---
Discharge Care Plan Diagnosis: (1) Hypercapnic respiratory failure (2) COPD exacerbation Your Health Problems Are: Difficulty with ADL Exercise Tolerance Goals to Promote Your Health * To prevent worsening of your condition and complications * To maintain your health at the optimal level Directions to Meet Your Goals Take your medications as prescribed Follow your dietary instruction Follow activity as directed Keep your appointments as scheduled Take your immunizations and boosters as scheduled If your symptoms worsen call your PCP, if no PCP go to Urgent Care Center or Emergency Room Smoking is Dangerous to Your Health. Avoid second hand smoke Call the 24-hour hour crisis hotline for domestic abuse at Jose Longoria MD Nov 06, 2016 14:01
--- NOTE | 2016-11-06 14:03 | HHI.FF ---
Face to Face Verification Diagnosis: (1) Hypercapnic respiratory failure (2) COPD exacerbation Physical Therapy Order: Evaluate and Treat, Improve ambulation, Strength and gait training Home Health Nursing Order: Medical education Oxygen administration education Medication education-adverse effect I have seen patient Debo Cantrell Shows on 11/06/16. My clinical findings support the need for the requested home health care services because: Patient has SOB I certify that my clinical findings support that this patient is homebound because: Hx COPD- exertion dyspnea/weakness Jose Longoria MD Nov 06, 2016 14:03
[2016-11-06] MEDS ORDERED: WALKER WHEELS/F1 MIS (14:05)
[2016-11-06] MEDS ORDERED: OXYGENTANK NAS.CANULA (15:45)
--- NOTE | 2016-11-06 19:02 | MB ---
cc: JING PIERRE DATE OF CONSULTATION: 11/06/2016. REASON FOR CONSULTATION: Respiratory insufficiency and sleep apnea. HISTORY OF PRESENT ILLNESS: This is a 46-year-old extremely overweight white female who was brought to the emergency room with respiratory distress and altered mental status. The patient apparently has had similar admissions in the past and has been intubated for respiratory failure. She was brought to the ER again with severe respiratory distress and had to be intubated and placed on ventilator support and the initial blood gases demonstrated hypercapnia. Her EtOH level was elevated. She was slowly weaned off the ventilator over the next two days and has been extubated and placed on oxygen via nasal cannula. Presently she is sitting up awake and oriented and complains of mild shortness of breath and occasional cough but no chest pain. She does have some leg swelling. PAST MEDICAL HISTORY: 1. History of asthma. 2. Chronic bronchitis. 3. History of cardiac arrhythmias. 4. Congestive heart failure. 5. Previous history for diabetes mellitus type 2. 6. History of gastritis. 7. Peripheral neuropathy. 8. She has had cellulitis of the legs. 9. Hypothyroidism. 10. She had eye surgery in the past. 11. A trache in the past. 12. NG tube. HABITS: The patient smokes half to one-pack per day for over 25 years and then quit. Alcohol use is moderate. ALLERGIES: 1. KEFLEX. 2. CLINDAMYCIN. 3. DOXYCYCLINE. FAMILY HISTORY: Noncontributory. Grandparents had a history of lung disease as well as her mother. MEDICATIONS: 1. Glucophage. 2. Synthroid. REVIEW OF SYSTEMS: The patient is overweight. She has leg swelling. She has inability to ambulate much. She has chest pressure and abdominal discomfort. Denies urinary symptoms. No leg or calf muscle pains. She has some joint pains of her extremities. The other system review is negative. PHYSICAL EXAMINATION: GENERAL: This is an obese middle-aged white female whose face is flushed. VITAL SIGNS: Her blood pressure is 130/70, pulse 74, respirations 20, temperature 98.2. HEAD, EYES, EARS, NOSE, THROAT: Head normocephalic. The pupils are reactive. Tongue is dry. Throat was clear. NECK: The neck is supple. No bruits. No thyroid enlargement. CHEST: Distant breath sounds with a few wheezes in the upper chest and percussion note resonant throughout. HEART: Heart sounds are regular. S1 and S2. No murmur or S3. ABDOMEN: Abdomen soft and obese without masses. No organomegaly or tenderness. The bowel sounds are active. EXTREMITIES: Pigmentation with minimal edema and diminished peripheral pulses. NEUROLOGIC: Reflexes are 1+. No gross motor deficits. RECTAL: Rectal exam is deferred. SKIN: No lesions. IMPRESSION: 1. Hypercapnic respiratory failure, resolved. 2. Possible obstructive sleep apnea syndrome. 3. History of diabetes mellitus type 2. 4. Hypertension. 5. Alcohol intoxication. 6. Bibasilar atelectasis 7. Congestive heart failure. 8. Obstructive sleep apnea. PLAN: 1. The patient will be maintained on O2 at 2 liters during the day. 2. BiPAP at nights at 12/5 and 28%. 3. Nebulized DuoNeb solution added four times a day. 4. Pulmonary function study to be done at the bedside. 5. The patient will be continued on insulin as before. 6. We will add Symbicort 160/4.5 one puff twice daily. I will review and follow the case with you Dr. Longoria. Thank you for this consultation. MD NURIA Melo/SANTY /2:48 PM /5:50 PM
[2016-11-06] MEDS: BUDESONIDE-FORMOTEROL 160/4.5 MCG INHALER INH SCH (20:54)
[2016-11-07] VITALS (8 sets, daily range): BP systolic 99–140; BP diastolic 56–76; PULSE 73–101; RESP 12–20; TEMP 97.3–98.1; O2SAT 90–95
[2016-11-07] MEDS: ACETAMINOPHEN/HYDROcodone 325 MG/5 MG TAB PO PRN ×6 (00:56→23:09)
[2016-11-07] MEDS: CHLORHEXIDINE GLUCONATE 2 % 1 PACK (2 CLOTHS) TOP SCH (04:00)
[2016-11-07] MEDS: ENOXAPARIN SODIUM 40 MG/0.4 ML SYRINGE SQ SCH (04:57)
[2016-11-07] MEDS: LEVOTHYROXINE SODIUM 100 MCG TAB PO SCH (04:57)
[2016-11-07] MEDS: RESP: ALBUTEROL 2.5 MG/IPRATROPIUM 0.5 MG NEB (SCH) NEB ×4 (05:29→21:21)
[2016-11-07] MEDS: INSULIN ASPART SUPPLEMENTAL SCALE SQ SCH ×4 (06:35→23:08)
[2016-11-07] MEDS: CHLORHEXIDINE 0.12% (ORAL KIT) 15 ML CUP MT SCH ×2 (08:00→20:00)
[2016-11-07] MEDS: THIAMINE HCL 100 MG TAB PO SCH (08:38)
[2016-11-07] MEDS: PANTOPRAZOLE SOD 40 MG DELAYED RELEASE TAB PO SCH (08:38)
[2016-11-07] MEDS: MULTIVITAMIN TAB PO SCH (08:38)
[2016-11-07] MEDS: FOLIC ACID 1 MG TAB PO SCH (08:38)
[2016-11-07] MEDS: SODIUM CHLORIDE 0.9% FLUSH 5 ML FLUSH IV FLUSH SCH ×2 (08:39→23:01)
[2016-11-07] MEDS: BUDESONIDE-FORMOTEROL 160/4.5 MCG INHALER INH SCH ×2 (08:40→23:01)
[2016-11-07] MEDS: SENNOSIDES 8.6 MG TAB PO SCH (09:00)
[2016-11-07] MEDS: POLYETHYLENE GLYCOL 17 GM PKG PO SCH (09:00)
[2016-11-07] MEDS: DOCUSATE SODIUM 100 MG CAP PO SCH ×2 (09:00→23:01)
--- NOTE | 2016-11-07 11:39 | HHI.PR ---
Subjective Remarks Follow-up hypoxia. Still requiring oxygen. Per pulmonary, patient can be discharged home with home oxygen. Discussed with RN. Discussed with case management, no payor source for home health care and oxygen Objective Vitals Vital Signs Date Time Temp Pulse Resp B/P Pulse Ox O2 Delivery O2 Flow Rate FiO2 11/07/16 10:44 Nasal Cannula 2.00 11/07/16 08:00 98.1 89 12 99/64 94 11/07/16 08:00 88 11/07/16 04:00 97.9 101 18 140/76 95 11/07/16 00:00 97.3 81 20 135/72 95 11/06/16 21:34 99 Nasal Cannula 2.00 11/06/16 20:59 Nasal Cannula 2.00 11/06/16 20:00 74 11/06/16 20:00 97.7 75 18 128/76 96 11/06/16 16:00 98.2 77 18 128/66 96 11/06/16 12:00 98.3 85 22 118/66 94 I/O 11/06/16 11/06/16 11/06/16 11/07/16 11/07/16 11/07/16 07:00 15:00 23:00 07:00 15:00 23:00 Intake Total 242 ml 482 ml 120 ml 120 ml Output Total 1250 ml 300 ml Balance -1008 ml 482 ml -180 ml 120 ml Intake Oral 240 ml 480 ml 120 ml 120 ml IV Total 2 ml 2 ml Output Urine Total 1250 ml 300 ml # Voids 2 1 # Bowel Movements 0 0 0 Result Diagram: 11/06/16 0633 11/06/16 0633 Objective Remarks GENERAL: 46-year-old female in no distress SKIN: Warm and dry. HEAD: Atraumatic. Normocephalic. EYES: Pupils equal and round about 5 mm bilaterally and reactive. No scleral icterus. No injection or drainage. ENT: No nasal bleeding or discharge. Mucous membranes pink and moist. NECK: Trachea midline. No JVD. Supple. Obese. CARDIOVASCULAR: Regular rate and rhythm. S1, S2. No S4. RESPIRATORY: No accessory muscle use. Clear to auscultation. Breath sounds equal bilaterally. GASTROINTESTINAL: Abdomen soft, non-tender, obese. Normal active bowel sounds. MUSCULOSKELETAL: Extremities with bilateral nonpitting edema. No obvious deformities. NEUROLOGICAL: Awake and alert. No obvious cranial nerve deficits. Motor grossly within normal limits. Five out of 5 muscle strength in the arms and legs. Normal speech. PSYCHIATRIC: Calm and cooperative Procedures Intubation A/P Problem List: (1) Hypercapnic respiratory failure ICD Code: J96.92 Status: Acute (2) COPD exacerbation ICD Code: J44.1 Status: Acute Assessment and Plan NEURO: EtOH Acetaminophen for fever [place]/morphine for pain management Monitor for DTs CIWA protocol initiated. Counseled -Supplement thiamine, and MVI and folate RESP: Acute hypercapnic respiratory failure -resolving COPD exacerbation. Resolved Likely KATIE -Nasal cannula to maintain saturations greater than equal to 92% -Incentive spirometry while awake -DuoNeb every 6 hours scheduled and when necessary -Repeat ABG still with mild hypercarbia, patient without confusion and headache. Tolerating room air did not require BiPAP. Failed Walk test, she will need home oxygen but no payor source, case management assisting. Patient to follow-up outpatient for sleep study. Discussed with pulmonarycathy for discharge with home oxygen CV: Currently not requiring vasopressors and/or and hypertensives. GI: ADA diet Protonix for GI prophylaxis Colace/as needed Senokot for bowel regimen : -Monitor renal function closely. Hunter catheter discontinued. ID: -Watch closely for infection. No antibiotics at this time HEME: Leukocytosis - resolved -Monitor CBC, CMP, coags ENDO: Diabetes mellitus Hypothyroidism Sliding scale insulin Accu-Cheks every 6 before meals/at bedtime to maintain euglycemia Restart metformin -Electrolyte replacement as clinically indicated Continue Levoxyl 100 oziel grams by mouth daily PROPH: -Bilateral lower extremity SCDs. Heparin 500 sq q8. Protonix 40 mg qd LINES: -Utilize peripheral IVs, central line if needed Discharge Planning Discharge when home oxygen and home health care PT/visiting nurse arranged Problem Qualifiers (1) Hypercapnic respiratory failure: Qualified Code: J96.22 - Acute on chronic respiratory failure with hypercapnia Jose Longoria MD Nov 07, 2016 11:39
[2016-11-07] MEDS ORDERED: SYMB160A INH (13:50)
--- NOTE | 2016-11-07 18:50 | HHI.PR ---
Subjective Remarks Up in room. Cough is better. No wheezing. PFT pending. Needs a Sleep test.Did not use Bipap. Objective Vital Signs Date Time Temp Pulse Resp B/P Pulse Ox O2 Delivery O2 Flow Rate FiO2 11/07/16 16:00 97.3 74 12 108/56 95 11/07/16 15:29 90 Nasal Cannula 2.00 11/07/16 12:00 97.6 75 12 118/59 90 11/07/16 11:23 92 Nasal Cannula 2.00 11/07/16 10:44 Nasal Cannula 2.00 11/07/16 08:00 98.1 89 12 99/64 94 11/07/16 08:00 88 11/07/16 04:00 97.9 101 18 140/76 95 11/07/16 00:00 97.3 81 20 135/72 95 11/06/16 21:34 99 Nasal Cannula 2.00 11/06/16 20:59 Nasal Cannula 2.00 11/06/16 20:00 74 11/06/16 20:00 97.7 75 18 128/76 96 I/O 11/06/16 11/06/16 11/06/16 11/07/16 11/07/16 11/07/16 07:00 15:00 23:00 07:00 15:00 23:00 Intake Total 242 ml 482 ml 120 ml 120 ml 360 ml Output Total 1250 ml 300 ml Balance -1008 ml 482 ml -180 ml 120 ml 360 ml Intake Oral 240 ml 480 ml 120 ml 120 ml 360 ml IV Total 2 ml 2 ml Output Urine Total 1250 ml 300 ml # Voids 2 1 3 # Bowel Movements 0 0 0 0 Result Diagram: 11/06/1663211/06/16632 Objective Remarks GENERAL: This is an obese middle-aged white female whose is alert . HEAD, EYES, EARS, NOSE, THROAT: Head normocephalic. The pupils are reactive. Tongue is dry. Throat was clear. NECK: The neck is supple. No bruits. No thyroid enlargement. CHEST: Distant breath sounds with a few wheezes in the upper chest and percussion note resonant throughout. HEART: Heart sounds are regular. S1 and S2. No murmur or S3. ABDOMEN: Abdomen soft and obese without masses. No organomegaly or tenderness. The bowel sounds are active. EXTREMITIES: Pigmentation with minimal edema and diminished peripheral pulses. NEUROLOGIC: Reflexes are 1+. No gross motor deficits. RECTAL: Rectal exam is deferred. SKIN: No lesions. Assessment and Plan Assessment and Plan IMPRESSION: 1. Hypercapnic respiratory failure, resolved. 2. Possible obstructive sleep apnea syndrome. 3. History of diabetes mellitus type 2. 4. Hypertension. 5. Alcohol intoxication. 6. Bibasilar atelectasis 7. Congestive heart failure. Plan : 1. Continue O2 at 2 L. 2. Arrange home O2 2l. 3. Nebs tid , duoneb. 4. Arrange Sleep study as OP. 5. Weight loss program. 6. IS at bedside q3h. 7. Symbicort 160/4.5 mcg , 2 puffs bid. 8. Home soon Celia Brink MD Nov 07, 2016 18:50
[2016-11-07] MEDS: MAGNESIUM HYDROXIDE SUSP 30 ML CUP PO PRN (23:09)
[2016-11-08] VITALS (12 sets, daily range): BP systolic 99–158; BP diastolic 56–83; PULSE 69–98; RESP 12–22; TEMP 97.5–98.8; O2SAT 88–97
[2016-11-08] MEDS: RESP: ALBUTEROL 2.5 MG/IPRATROPIUM 0.5 MG NEB (SCH) NEB ×4 (03:39→21:31)
[2016-11-08] MEDS: CHLORHEXIDINE GLUCONATE 2 % 1 PACK (2 CLOTHS) TOP SCH (04:00)
[2016-11-08] MEDS: ENOXAPARIN SODIUM 40 MG/0.4 ML SYRINGE SQ SCH (04:50)
[2016-11-08] MEDS: ACETAMINOPHEN/HYDROcodone 325 MG/5 MG TAB PO PRN ×5 (04:50→22:58)
[2016-11-08] MEDS: LEVOTHYROXINE SODIUM 100 MCG TAB PO SCH (04:51)
[2016-11-08] MEDS: INSULIN ASPART SUPPLEMENTAL SCALE SQ SCH ×4 (04:51→20:35)
[2016-11-08] MEDS: CHLORHEXIDINE 0.12% (ORAL KIT) 15 ML CUP MT SCH ×2 (08:00→20:00)
[2016-11-08] MEDS: PANTOPRAZOLE SOD 40 MG DELAYED RELEASE TAB PO SCH (08:02)
[2016-11-08] MEDS: THIAMINE HCL 100 MG TAB PO SCH (08:02)
[2016-11-08] MEDS: DOCUSATE SODIUM 100 MG CAP PO SCH ×2 (08:02→20:37)
[2016-11-08] MEDS: POLYETHYLENE GLYCOL 17 GM PKG PO SCH (08:02)
[2016-11-08] MEDS: FOLIC ACID 1 MG TAB PO SCH (08:02)
[2016-11-08] MEDS: MULTIVITAMIN TAB PO SCH (08:02)
[2016-11-08] MEDS: SODIUM CHLORIDE 0.9% FLUSH 5 ML FLUSH IV FLUSH SCH ×2 (08:03→20:36)
[2016-11-08] MEDS: BUDESONIDE-FORMOTEROL 160/4.5 MCG INHALER INH SCH ×2 (08:05→20:36)
[2016-11-08] MEDS: SENNOSIDES 8.6 MG TAB PO SCH (08:07)
--- NOTE | 2016-11-08 10:01 | HHI.PR ---
Subjective Remarks Follow-up hypoxia. Tolerating nasal cannula. Did not require BiPAP last night. She wants to go home inquiring about PFT results. Discussed with RN Objective Vitals Vital Signs Date Time Temp Pulse Resp B/P Pulse Ox O2 Delivery O2 Flow Rate FiO2 11/08/16 09:37 83 11/08/16 09:25 95 Nasal Cannula 2.00 11/08/16 08:00 98.8 86 16 131/83 96 11/08/16 05:32 98.2 98 22 158/78 88 11/08/16 03:42 96 Nasal Cannula 2.00 11/08/16 03:26 76 11/08/16 00:48 98.5 69 22 110/61 96 11/07/16 22:59 97.3 73 20 114/69 92 11/07/16 21:55 Nasal Cannula 2.00 11/07/16 16:00 97.3 74 12 108/56 95 11/07/16 15:29 90 Nasal Cannula 2.00 11/07/16 12:00 97.6 75 12 118/59 90 11/07/16 11:23 92 Nasal Cannula 2.00 11/07/16 10:44 Nasal Cannula 2.00 I/O 11/07/16 11/07/16 11/07/16 11/08/16 11/08/16 11/08/16 07:00 15:00 23:00 07:00 15:00 23:00 Intake Total 120 ml 360 ml 880 ml Balance 120 ml 360 ml 880 ml Intake Oral 120 ml 360 ml 880 ml # Voids 1 3 8 # Bowel Movements 0 0 1 Result Diagram: 11/06/1633 11/06/1633 Objective Remarks GENERAL: 46-year-old female in no distress SKIN: Warm and dry. HEAD: Atraumatic. Normocephalic. EYES: Pupils equal and round about 5 mm bilaterally and reactive. No scleral icterus. No injection or drainage. ENT: No nasal bleeding or discharge. Mucous membranes pink and moist. NECK: Trachea midline. No JVD. Supple. Obese. CARDIOVASCULAR: Regular rate and rhythm. S1, S2. No S4. RESPIRATORY: No accessory muscle use. Clear to auscultation. Breath sounds equal bilaterally. GASTROINTESTINAL: Abdomen soft, non-tender, obese. Normal active bowel sounds. MUSCULOSKELETAL: Extremities with bilateral nonpitting edema. No obvious deformities. NEUROLOGICAL: Awake and alert. No obvious cranial nerve deficits. Motor grossly within normal limits. Five out of 5 muscle strength in the arms and legs. Normal speech. Nonfocal PSYCHIATRIC: Calm and cooperative Procedures Intubation A/P Problem List: (1) Hypercapnic respiratory failure ICD Code: J96.92 Status: Acute (2) COPD exacerbation ICD Code: J44.1 Status: Acute Assessment and Plan NEURO: EtOH Acetaminophen for fever [place]/morphine for pain management Monitor for DTs CIWA protocol initiated. Counseled -Supplement thiamine, and MVI and folate RESP: Acute hypercapnic respiratory failure -resolving COPD exacerbation. Resolved Likely KATIE -Nasal cannula to maintain saturations greater than equal to 92% -Incentive spirometry while awake -DuoNeb every 6 hours scheduled and when necessary -Repeat ABG still with mild hypercarbia, patient without confusion and headache. Tolerating nasal cannula did not require BiPAP. Failed Walk test, she will need home oxygen but no payor source, case management assisting. Patient to follow-up outpatient for sleep study. Discussed with pulmonarycathy for discharge with home oxygen CV: Currently not requiring vasopressors and/or and hypertensives. GI: ADA diet Protonix for GI prophylaxis Colace/as needed Senokot for bowel regimen : -Monitor renal function closely. Hunter catheter discontinued. ID: -Watch closely for infection. No antibiotics at this time HEME: Leukocytosis - resolved -Monitor CBC, CMP, coags ENDO: Diabetes mellitus Hypothyroidism Sliding scale insulin Accu-Cheks every 6 before meals/at bedtime to maintain euglycemia Restart metformin -Electrolyte replacement as clinically indicated Continue Levoxyl 100 oziel grams by mouth daily PROPH: -Bilateral lower extremity SCDs. Heparin 500 sq q8. Protonix 40 mg qd LINES: -Utilize peripheral IVs, central line if needed Discharge Planning Discharge when home oxygen and home health care PT/visiting nurse arranged Problem Qualifiers (1) Hypercapnic respiratory failure: Qualified Code: J96.22 - Acute on chronic respiratory failure with hypercapnia Jose Longoria MD Nov 08, 2016 10:01
--- NOTE | 2016-11-08 19:06 | HHI.PR ---
Subjective Remarks On O2 2l. Not using Bipap. Needs a Sleep study. No wheezing. Objective Vital Signs Date Time Temp Pulse Resp B/P Pulse Ox O2 Delivery O2 Flow Rate FiO2 11/08/16 16:00 97.5 78 12 102/56 92 11/08/16 15:59 97 Nasal Cannula 2.00 11/08/16 12:00 97.5 81 12 110/68 95 11/08/16 09:37 83 11/08/16 09:25 95 Nasal Cannula 2.00 11/08/16 08:00 98.8 86 16 131/83 96 11/08/16 08:00 Nasal Cannula 2.00 50 11/08/16 05:32 98.2 98 22 158/78 88 11/08/16 03:42 96 Nasal Cannula 2.00 11/08/16 03:26 76 11/08/16 00:48 98.5 69 22 110/61 96 11/07/16 22:59 97.3 73 20 114/69 92 11/07/16 21:55 Nasal Cannula 2.00 I/O 11/07/16 11/07/16 11/07/16 11/08/16 11/08/16 11/08/16 07:00 15:00 23:00 07:00 15:00 23:00 Intake Total 120 ml 360 ml 880 ml 600 ml Balance 120 ml 360 ml 880 ml 600 ml Intake Oral 120 ml 360 ml 880 ml 600 ml # Voids 1 3 8 # Bowel Movements 0 0 1 0 Result Diagram: 11/06/1633 11/06/1633 Objective Remarks GENERAL: This is an obese middle-aged white female whose is alert . HEAD, EYES, EARS, NOSE, THROAT: Head normocephalic. The pupils are reactive. Tongue is dry. Throat was clear. NECK: The neck is supple. No bruits. No thyroid enlargement. CHEST: Distant breath sounds with a few wheezes in the upper chest . HEART: Heart sounds are regular. S1 and S2. No murmur or S3. ABDOMEN: Abdomen soft and obese without masses. No organomegaly or tenderness. The bowel sounds are active. EXTREMITIES: Pigmentation with minimal edema and diminished peripheral pulses. NEUROLOGIC: Reflexes are 1+. No gross motor deficits. RECTAL: Rectal exam is deferred. SKIN: No lesions. Assessment and Plan Assessment and Plan IMPRESSION: 1. Hypercapnic respiratory failure, resolved. 2. Possible obstructive sleep apnea syndrome. 3. History of diabetes mellitus type 2. 4. Hypertension. 5. Alcohol intoxication. 6. Bibasilar atelectasis 7. Congestive heart failure. Plan : 1. Continue O2 at 2 L. 2. Arrange home O2 2l. 3. Nebs tid , duoneb. 4. Arrange Sleep study as OP. 5. Weight loss program. 6. IS at bedside q3h. 7. Symbicort 160/4.5 mcg , 2 puffs bid. 8. Labs in am. Celia Brink MD Nov 08, 2016 19:06
[2016-11-08] MEDS: MAGNESIUM HYDROXIDE SUSP 30 ML CUP PO PRN (20:33)
[2016-11-09] VITALS (10 sets, daily range): BP systolic 95–128; BP diastolic 62–69; PULSE 71–96; RESP 18–20; TEMP 97.4–98.4; O2SAT 90–96
[2016-11-09] MEDS: CHLORHEXIDINE GLUCONATE 2 % 1 PACK (2 CLOTHS) TOP SCH (04:00)
[2016-11-09] MEDS: LEVOTHYROXINE SODIUM 100 MCG TAB PO SCH (04:40)
[2016-11-09] MEDS: ACETAMINOPHEN/HYDROcodone 325 MG/5 MG TAB PO PRN ×3 (04:41→15:19)
[2016-11-09] MEDS: ENOXAPARIN SODIUM 40 MG/0.4 ML SYRINGE SQ SCH (04:41)
[2016-11-09] MEDS: INSULIN ASPART SUPPLEMENTAL SCALE SQ SCH ×4 (04:43→20:08)
[2016-11-09] MEDS: CHLORHEXIDINE 0.12% (ORAL KIT) 15 ML CUP MT SCH ×2 (08:00→20:00)
[2016-11-09] MEDS: SODIUM CHLORIDE 0.9% FLUSH 5 ML FLUSH IV FLUSH SCH ×2 (09:25→20:07)
[2016-11-09] MEDS: POLYETHYLENE GLYCOL 17 GM PKG PO SCH (09:25)
[2016-11-09] MEDS: PANTOPRAZOLE SOD 40 MG DELAYED RELEASE TAB PO SCH (09:25)
[2016-11-09] MEDS: MULTIVITAMIN TAB PO SCH (09:25)
[2016-11-09] MEDS: FOLIC ACID 1 MG TAB PO SCH (09:25)
[2016-11-09] MEDS: DOCUSATE SODIUM 100 MG CAP PO SCH ×2 (09:25→20:07)
[2016-11-09] MEDS: SENNOSIDES 8.6 MG TAB PO SCH (09:25)
[2016-11-09] MEDS: THIAMINE HCL 100 MG TAB PO SCH (09:25)
[2016-11-09] MEDS: BUDESONIDE-FORMOTEROL 160/4.5 MCG INHALER INH SCH ×2 (09:27→20:08)
[2016-11-09] MEDS: MAGNESIUM HYDROXIDE SUSP 30 ML CUP PO PRN (09:31)
[2016-11-09] MEDS: RESP: ALBUTEROL 2.5 MG/IPRATROPIUM 0.5 MG NEB (SCH) NEB ×3 (10:15→21:42)
--- NOTE | 2016-11-09 12:19 | HHI.PR ---
Subjective Remarks Follow-up hypoxia. Still on 2 L improved shortness of breath. She is ambulating in the room without rolling walker. Discussed with RN, follow-up with respiratory therapy and physical therapy. She is stable for discharge with home oxygen is arranged Objective Vitals Vital Signs Date Time Temp Pulse Resp B/P Pulse Ox O2 Delivery O2 Flow Rate FiO2 11/09/16 12:09 97.4 86 18 105/63 92 11/09/16 10:15 94 Nasal Cannula 2.00 11/09/16 09:00 Nasal Cannula 2.00 11/09/16 08:56 87 11/09/16 08:07 98.3 95 20 116/69 95 11/09/16 04:29 90 Nasal Cannula 2.00 11/09/16 04:00 98.4 95 20 95/66 96 11/09/16 00:00 97.6 74 18 128/63 96 11/08/16 21:45 74 11/08/16 21:45 Nasal Cannula 2.00 11/08/16 20:04 97.7 73 20 99/58 96 11/08/16 16:00 97.5 78 12 102/56 92 11/08/16 15:59 97 Nasal Cannula 2.00 I/O 11/08/16 11/08/16 11/08/16 11/09/16 11/09/16 11/09/16 07:00 15:00 23:00 07:00 15:00 23:00 Intake Total 880 ml 600 ml 720 ml 600 ml Output Total 900 ml Balance 880 ml 600 ml 720 ml -300 ml Intake Oral 880 ml 600 ml 720 ml 600 ml Output Urine Total 900 ml # Voids 8 4 # Bowel Movements 1 0 0 0 Result Diagram: 11/06/1633 11/06/16632 Objective Remarks GENERAL: 46-year-old female in no distress SKIN: Warm and dry. HEAD: Atraumatic. Normocephalic. EYES: Pupils equal and round about 5 mm bilaterally and reactive. No scleral icterus. No injection or drainage. ENT: No nasal bleeding or discharge. Mucous membranes pink and moist. NECK: Trachea midline. No JVD. Supple. Obese. CARDIOVASCULAR: Regular rate and rhythm. S1, S2. No S4. RESPIRATORY: No accessory muscle use. Clear to auscultation. Breath sounds equal bilaterally. GASTROINTESTINAL: Abdomen soft, non-tender, obese. Normal active bowel sounds. MUSCULOSKELETAL: Extremities with bilateral nonpitting edema. No obvious deformities. NEUROLOGICAL: Awake and alert. No obvious cranial nerve deficits. Motor grossly within normal limits. Five out of 5 muscle strength in the arms and legs. Normal speech. Nonfocal PSYCHIATRIC: Calm and cooperative Procedures Intubation A/P Problem List: (1) Hypercapnic respiratory failure ICD Code: J96.92 Status: Acute (2) COPD exacerbation ICD Code: J44.1 Status: Acute Assessment and Plan NEURO: EtOH Acetaminophen for fever [place]/morphine for pain management Monitor for DTs CIWA protocol initiated. Counseled -Supplement thiamine, and MVI and folate RESP: Acute hypercapnic respiratory failure -resolving COPD exacerbation. Resolved Likely KATIE -Nasal cannula to maintain saturations greater than equal to 92% -Incentive spirometry while awake -DuoNeb every 6 hours scheduled and when necessary -Repeat ABG still with mild hypercarbia, patient without confusion and headache. Tolerating nasal cannula did not require BiPAP. Failed Walk test, she will need home oxygen but no payor source, case management assisting. Patient to follow-up outpatient for sleep study. Discussed with cathy nassar for discharge with home oxygen. Follow-up PFTs CV: Currently not requiring vasopressors and/or and hypertensives. GI: ADA diet Protonix for GI prophylaxis Colace/as needed Senokot for bowel regimen : -Monitor renal function closely. Hunter catheter discontinued. ID: -Watch closely for infection. No antibiotics at this time HEME: Leukocytosis - resolved -Monitor CBC, CMP, coags ENDO: Diabetes mellitus Hypothyroidism Sliding scale insulin Accu-Cheks every 6 before meals/at bedtime to maintain euglycemia Restart metformin -Electrolyte replacement as clinically indicated Continue Levoxyl 100 oziel grams by mouth daily PROPH: -Bilateral lower extremity SCDs. Heparin 500 sq q8. Protonix 40 mg qd LINES: -Utilize peripheral IVs, central line if needed Discharge Planning Discharge when home oxygen and home health care PT/visiting nurse arranged Problem Qualifiers (1) Hypercapnic respiratory failure: Qualified Code: J96.22 - Acute on chronic respiratory failure with hypercapnia Jose Longoria MD Nov 09, 2016 12:19
--- NOTE | 2016-11-09 12:57 | HHI.PR ---
Subjective Remarks On O2 2l. Doing well and walks in room. Needs a Sleep study. Will hav e home O2 arranged. Objective Vital Signs Date Time Temp Pulse Resp B/P Pulse Ox O2 Delivery O2 Flow Rate FiO2 11/09/16 12:09 97.4 86 18 105/63 92 11/09/16 10:15 94 Nasal Cannula 2.00 11/09/16 09:00 Nasal Cannula 2.00 11/09/16 08:56 87 11/09/16 08:07 98.3 95 20 116/69 95 11/09/16 04:29 90 Nasal Cannula 2.00 11/09/16 04:00 98.4 95 20 95/66 96 11/09/16 00:00 97.6 74 18 128/63 96 11/08/16 21:45 74 11/08/16 21:45 Nasal Cannula 2.00 11/08/16 20:04 97.7 73 20 99/58 96 11/08/16 16:00 97.5 78 12 102/56 92 11/08/16 15:59 97 Nasal Cannula 2.00 I/O 11/08/16 11/08/16 11/08/16 11/09/16 11/09/16 11/09/16 07:00 15:00 23:00 07:00 15:00 23:00 Intake Total 880 ml 600 ml 720 ml 600 ml Output Total 900 ml Balance 880 ml 600 ml 720 ml -300 ml Intake Oral 880 ml 600 ml 720 ml 600 ml Output Urine Total 900 ml # Voids 8 4 # Bowel Movements 1 0 0 0 Result Diagram: 11/06/1633 11/06/1633 Objective Remarks GENERAL: This is an obese middle-aged white female whose is alert . HEAD, EYES, EARS, NOSE, THROAT: Head normocephalic. The pupils are reactive. Tongue is dry. Throat was clear. NECK: The neck is supple. No bruits. No thyroid enlargement. CHEST: Distant breath sounds with occ wheezes. HEART: Heart sounds are regular. S1 and S2. No murmur or S3. ABDOMEN: Abdomen soft and obese without masses. No organomegaly or tenderness. The bowel sounds are active. EXTREMITIES: Mild edema and diminished peripheral pulses. NEUROLOGIC: Reflexes are 1+. No gross motor deficits. RECTAL: Rectal exam is deferred. SKIN: No lesions. Assessment and Plan Assessment and Plan IMPRESSION: 1. Hypercapnic respiratory failure, resolved. 2. Possible obstructive sleep apnea syndrome. 3. History of diabetes mellitus type 2. 4. Hypertension. 5. Alcohol intoxication. 6. Bibasilar atelectasis 7. Congestive heart failure. Plan : 1. Continue O2 at 2 L. 2. Arrange home O2 2l. 3. Nebs tid , duoneb. 4. Arrange Sleep study as OP. 5. Weight loss program.Consider Lap Band . 6. IS at bedside q3h. 7. Symbicort 160/4.5 mcg , 2 puffs bid. 8. Home soon. Celia Brink MD Nov 09, 2016 12:57
[2016-11-10] VITALS (7 sets, daily range): BP systolic 64–131; BP diastolic 52–61; PULSE 66–88; RESP 17–20; TEMP 96.6–98.4; O2SAT 92–97
[2016-11-10] MEDS: ACETAMINOPHEN/HYDROcodone 325 MG/5 MG TAB PO PRN ×5 (02:14→20:13)
[2016-11-10] MEDS: ENOXAPARIN SODIUM 40 MG/0.4 ML SYRINGE SQ SCH (02:14)
[2016-11-10] MEDS: CHLORHEXIDINE GLUCONATE 2 % 1 PACK (2 CLOTHS) TOP SCH (04:00)
[2016-11-10] MEDS: RESP: ALBUTEROL 2.5 MG/IPRATROPIUM 0.5 MG NEB (SCH) NEB ×4 (04:36→22:09)
[2016-11-10] MEDS: LEVOTHYROXINE SODIUM 100 MCG TAB PO SCH (06:47)
[2016-11-10] MEDS: INSULIN ASPART SUPPLEMENTAL SCALE SQ SCH ×4 (06:47→20:15)
[2016-11-10] MEDS: CHLORHEXIDINE 0.12% (ORAL KIT) 15 ML CUP MT SCH ×2 (07:58→20:00)
[2016-11-10] MEDS: PANTOPRAZOLE SOD 40 MG DELAYED RELEASE TAB PO SCH (08:57)
[2016-11-10] MEDS: SENNOSIDES 8.6 MG TAB PO SCH (08:57)
[2016-11-10] MEDS: SODIUM CHLORIDE 0.9% FLUSH 5 ML FLUSH IV FLUSH SCH ×2 (08:58→20:14)
[2016-11-10] MEDS: THIAMINE HCL 100 MG TAB PO SCH (08:58)
[2016-11-10] MEDS: MULTIVITAMIN TAB PO SCH (08:58)
[2016-11-10] MEDS: DOCUSATE SODIUM 100 MG CAP PO SCH ×2 (08:58→20:14)
[2016-11-10] MEDS: FOLIC ACID 1 MG TAB PO SCH (08:58)
[2016-11-10] MEDS: BUDESONIDE-FORMOTEROL 160/4.5 MCG INHALER INH SCH ×2 (08:59→20:15)
[2016-11-10] MEDS: POLYETHYLENE GLYCOL 17 GM PKG PO SCH (09:00)
--- NOTE | 2016-11-10 10:30 | HHI.PR ---
Subjective Remarks Follow-up hypoxia. Oxygen saturation dropped to 69% on room air. Still unable to arrange for home oxygen no payor source. Discussed with RN and case management Objective Vitals Vital Signs Date Time Temp Pulse Resp B/P Pulse Ox O2 Delivery O2 Flow Rate FiO2 11/10/16 09:00 Nasal Cannula 2.00 11/10/16 04:40 97 Nasal Cannula 3.00 11/10/16 04:21 Nasal Cannula 2.00 Humidified 11/10/16 04:21 98.4 81 20 131/61 92 11/10/16 00:00 Nasal Cannula 2.00 11/10/16 00:00 97.7 88 17 64/ 96 11/09/16 20:00 98.1 71 20 104/62 96 11/09/16 20:00 Nasal Cannula 2.00 11/09/16 16:32 97.4 96 20 109/62 94 11/09/16 15:27 96 Nasal Cannula 2.00 11/09/16 12:09 97.4 86 18 105/63 92 I/O 11/09/16 11/09/16 11/09/16 11/10/16 11/10/16 11/10/16 07:00 15:00 23:00 07:00 15:00 23:00 Intake Total 600 ml 1082 ml 1420 ml Output Total 900 ml 650 ml Balance -300 ml 1082 ml 770 ml Intake Oral 600 ml 1080 ml 1420 ml IV Total 2 ml Output Urine Total 900 ml 650 ml # Voids 3 2 # Bowel Movements 0 0 1 Result Diagram: 11/06/16 0633 11/06/16 0633 Imaging Last Impressions Chest X-Ray 11/06/16 0600 Signed Impressions: Service Date/Time: Sunday, November 06, 2016 06:06 - CONCLUSION: No infiltrates seen. Abdulkadir Gómez MD CT Angiography 11/02/16 0000 Signed Impressions: Service Date/Time: Wednesday, November 02, 2016 05:51 - CONCLUSION: 1. Bibasilar atelectatic changes, left greater than right. 2. Endotracheal tube is identified with the tip at the level of the magdy and just entering the right mainstem bronchus. This should probably be backed off a centimeter or 2. 3. No pulmonary embolus. 4. Compensated cardiomegaly. Vincent Willson MD Objective Remarks GENERAL: 46-year-old female in no distress on 2 L nasal cannula SKIN: Warm and dry. HEAD: Atraumatic. Normocephalic. EYES: Pupils equal and round about 5 mm bilaterally and reactive. No scleral icterus. No injection or drainage. ENT: No nasal bleeding or discharge. Mucous membranes pink and moist. NECK: Trachea midline. No JVD. Supple. Obese. CARDIOVASCULAR: Regular rate and rhythm. S1, S2. No S4. RESPIRATORY: No accessory muscle use. Clear to auscultation. Breath sounds equal bilaterally. GASTROINTESTINAL: Abdomen soft, non-tender, obese. Normal active bowel sounds. MUSCULOSKELETAL: Extremities with bilateral nonpitting edema. No obvious deformities. NEUROLOGICAL: Awake and alert. No obvious cranial nerve deficits. Motor grossly within normal limits. Five out of 5 muscle strength in the arms and legs. Normal speech. Nonfocal PSYCHIATRIC: Calm and cooperative Procedures Intubation A/P Problem List: (1) Hypercapnic respiratory failure ICD Code: J96.92 Status: Chronic (2) COPD exacerbation ICD Code: J44.1 Status: Resolved Assessment and Plan NEURO: EtOH Acetaminophen for fever [place]/morphine for pain management Monitor for DTs CIWA protocol initiated. Counseled -Supplement thiamine, and MVI and folate RESP: Acute hypercapnic respiratory failure -resolving COPD exacerbation. Resolved Likely KATIE -Nasal cannula to maintain saturations greater than equal to 92% -Incentive spirometry while awake -DuoNeb every 6 hours scheduled and when necessary -Repeat ABG still with mild hypercarbia, patient without confusion and headache. Tolerating nasal cannula did not require BiPAP. Failed Walk test, she will need home oxygen but no payor source, case management assisting. Patient to follow-up outpatient for sleep study. Discussed with pulmonarycathy for discharge with home oxygen. Follow-up PFTs. Start Acapella and ez Pap CV: Currently not requiring vasopressors and/or and hypertensives. GI: ADA diet Protonix for GI prophylaxis Colace/as needed Senokot for bowel regimen : -Monitor renal function closely. Hunter catheter discontinued. ID: -Watch closely for infection. No antibiotics at this time HEME: Leukocytosis - resolved -Monitor CBC, CMP, coags ENDO: Diabetes mellitus Hypothyroidism Sliding scale insulin Accu-Cheks every 6 before meals/at bedtime to maintain euglycemia Restart metformin -Electrolyte replacement as clinically indicated Continue Levoxyl 100 oziel grams by mouth daily PROPH: -Bilateral lower extremity SCDs. Heparin 500 sq q8. Protonix 40 mg qd LINES: -Utilize peripheral IVs, central line if needed Discharge Planning Discharge when home oxygen and home health care PT/visiting nurse arranged. Follow-up with PT if home health care still needed Problem Qualifiers (1) Hypercapnic respiratory failure: Qualified Code: J96.22 - Acute on chronic respiratory failure with hypercapnia Jose Longoria MD Nov 10, 2016 10:30
[2016-11-10] MEDS: metFORMIN HCL 500 MG TAB PO SCH (17:44)
--- NOTE | 2016-11-10 17:59 | HHI.PR ---
Subjective Remarks On O2 2l. Doing well and walks in room. Needs a Sleep study. Will have home O2 arranged. Awaiting O2 approval. Objective Vital Signs Date Time Temp Pulse Resp B/P Pulse Ox O2 Delivery O2 Flow Rate FiO2 11/10/16 12:05 96.6 77 20 110/54 95 11/10/16 11:22 97 Nasal Cannula 2.00 11/10/16 09:00 Nasal Cannula 2.00 11/10/16 08:04 98.0 66 20 94/52 97 11/10/16 04:40 97 Nasal Cannula 3.00 11/10/16 04:21 Nasal Cannula 2.00 Humidified 11/10/16 04:21 98.4 81 20 131/61 92 11/10/16 00:00 Nasal Cannula 2.00 11/10/16 00:00 97.7 88 17 64/ 96 11/09/16 20:00 98.1 71 20 104/62 96 11/09/16 20:00 Nasal Cannula 2.00 I/O 11/09/16 11/09/16 11/09/16 11/10/16 11/10/16 11/10/16 07:00 15:00 23:00 07:00 15:00 23:00 Intake Total 600 ml 1082 ml 1420 ml 2 ml Output Total 900 ml 650 ml Balance -300 ml 1082 ml 770 ml 2 ml Intake Oral 600 ml 1080 ml 1420 ml IV Total 2 ml 2 ml Output Urine Total 900 ml 650 ml # Voids 3 2 # Bowel Movements 0 0 1 Result Diagram: 11/06/1633 11/06/16632 Objective Remarks GENERAL: This is an obese middle-aged white female whose is alert . HEAD, EYES, EARS, NOSE, THROAT: Head normocephalic. The pupils are reactive. Tongue is dry. Throat was clear. NECK: The neck is supple. No bruits. No thyroid enlargement. CHEST: Distant breath sounds with occ wheezes. HEART: Heart sounds are regular. S1 and S2. No murmur or S3. ABDOMEN: Abdomen soft and obese without masses. No organomegaly or tenderness. The bowel sounds are active. EXTREMITIES: Mild edema and diminished peripheral pulses. NEUROLOGIC: Reflexes are 1+. No gross motor deficits. RECTAL: Rectal exam is deferred. SKIN: No lesions. Assessment and Plan Assessment and Plan IMPRESSION: 1. Hypercapnic respiratory failure, resolved. 2. Possible obstructive sleep apnea syndrome. 3. History of diabetes mellitus type 2. 4. Hypertension. 5. Alcohol intoxication. 6. Bibasilar atelectasis 7. Congestive heart failure. Plan : 1. Continue O2 at 2 L. 2. Arrange home O2 2l. 3. Nebs tid , duoneb. 4. Arrange Sleep study as OP. 5. Weight loss program.Consider Lap Band . 6. IS at bedside q3h. 7. Symbicort 160/4.5 mcg , 2 puffs bid. 8. Labs in am. Celia Brink MD Nov 10, 2016 17:59
[2016-11-11] VITALS (9 sets, daily range): BP systolic 96–111; BP diastolic 54–62; PULSE 65–89; RESP 18–20; TEMP 97–98.1; O2SAT 94–100
[2016-11-11] MEDS: ENOXAPARIN SODIUM 40 MG/0.4 ML SYRINGE SQ SCH (01:49)
[2016-11-11] MEDS: LEVOTHYROXINE SODIUM 100 MCG TAB PO SCH (04:39)
[2016-11-11] MEDS: ACETAMINOPHEN/HYDROcodone 325 MG/5 MG TAB PO PRN ×5 (04:39→22:14)
[2016-11-11] MEDS: RESP: ALBUTEROL 2.5 MG/IPRATROPIUM 0.5 MG NEB (SCH) NEB ×4 (04:51→21:00)
[2016-11-11] MEDS: INSULIN ASPART SUPPLEMENTAL SCALE SQ SCH ×4 (05:39→20:12)
[2016-11-11] MEDS: CHLORHEXIDINE 0.12% (ORAL KIT) 15 ML CUP MT SCH ×2 (08:00→20:00)
[2016-11-11] MEDS: MULTIVITAMIN TAB PO SCH (08:25)
[2016-11-11] MEDS: PANTOPRAZOLE SOD 40 MG DELAYED RELEASE TAB PO SCH (08:25)
[2016-11-11] MEDS: FOLIC ACID 1 MG TAB PO SCH (08:25)
[2016-11-11] MEDS: THIAMINE HCL 100 MG TAB PO SCH (08:25)
[2016-11-11] MEDS: metFORMIN HCL 500 MG TAB PO SCH ×2 (08:25→17:44)
[2016-11-11] MEDS: BUDESONIDE-FORMOTEROL 160/4.5 MCG INHALER INH SCH ×2 (08:27→20:14)
[2016-11-11] MEDS: SODIUM CHLORIDE 0.9% FLUSH 5 ML FLUSH IV FLUSH SCH ×2 (08:28→20:11)
[2016-11-11] MEDS: DOCUSATE SODIUM 100 MG CAP PO SCH ×2 (08:29→20:11)
[2016-11-11] MEDS: SENNOSIDES 8.6 MG TAB PO SCH (08:29)
[2016-11-11] MEDS: POLYETHYLENE GLYCOL 17 GM PKG PO SCH (08:29)
--- NOTE | 2016-11-11 12:49 | HHI.PR ---
Subjective Remarks On O2 2l. No new problem breathing Needs a Sleep study. Will have home O2 arranged. Awaiting O2 approval. Objective Vital Signs Date Time Temp Pulse Resp B/P Pulse Ox O2 Delivery O2 Flow Rate FiO2 11/11/16 12:00 97.0 89 18 102/54 94 11/11/16 09:22 95 Nasal Cannula 2.00 11/11/16 08:00 98.0 80 20 104/62 96 11/11/16 04:54 94 Nasal Cannula 2.00 11/11/16 04:00 97.1 65 18 102/59 100 11/11/16 04:00 Nasal Cannula 2.00 11/11/16 00:00 97.3 81 18 96/54 96 11/11/16 00:00 Nasal Cannula 2.00 11/10/16 20:00 98.4 72 18 115/60 95 11/10/16 20:00 Nasal Cannula 2.00 I/O 11/10/16 11/10/16 11/10/16 11/11/16 11/11/16 11/11/16 07:00 15:00 23:00 07:00 15:00 23:00 Intake Total 1420 ml 362 ml 480 ml 360 ml Output Total 650 ml Balance 770 ml 362 ml 480 ml 360 ml Intake Oral 1420 ml 360 ml 480 ml 360 ml IV Total 2 ml Output Urine Total 650 ml # Voids 2 4 6 2 # Bowel Movements 1 0 4 0 Objective Remarks GENERAL: This is an obese middle-aged white female whose is alert . HEAD, EYES, EARS, NOSE, THROAT: Head normocephalic. The pupils are reactive. Tongue is dry. Throat was clear. NECK: The neck is supple. No bruits. No thyroid enlargement. CHEST: Distant breath sounds . No crackles HEART: Heart sounds are regular. S1 and S2. No murmur or S3. ABDOMEN: Abdomen soft and obese without masses. No organomegaly or tenderness. The bowel sounds are active. EXTREMITIES: No edema and diminished peripheral pulses. NEUROLOGIC: Reflexes are 1+. No gross motor deficits. RECTAL: Rectal exam is deferred. SKIN: No lesions. Assessment and Plan Assessment and Plan IMPRESSION: 1. Hypercapnic respiratory failure, resolved. 2. Possible obstructive sleep apnea syndrome. 3. History of diabetes mellitus type 2. 4. Hypertension. 5. Alcohol intoxication. 6. Bibasilar atelectasis 7. Congestive heart failure. Plan : 1. Continue O2 at 2 L. 2. Arrange home O2 2l. 3. D/c Nebs and add Ventolin HFA 2 puffs qid prn. 4. Arrange Sleep study as OP. 5. Spiriva 1 cap daily. 6. IS at bedside q3h. 7. Symbicort 160/4.5 mcg , 2 puffs bid. 8. Home soon Celia Brink MD Nov 11, 2016 12:49
[2016-11-12] VITALS (9 sets, daily range): BP systolic 106–123; BP diastolic 56–64; PULSE 69–74; RESP 18–21; TEMP 92.9–98.2; O2SAT 94–97
[2016-11-12] MEDS: ENOXAPARIN SODIUM 40 MG/0.4 ML SYRINGE SQ SCH (01:57)
[2016-11-12] MEDS: RESP: ALBUTEROL 2.5 MG/IPRATROPIUM 0.5 MG NEB (SCH) NEB ×4 (03:31→19:39)
[2016-11-12] MEDS: ACETAMINOPHEN/HYDROcodone 325 MG/5 MG TAB PO PRN ×5 (03:44→21:46)
[2016-11-12] MEDS: LEVOTHYROXINE SODIUM 100 MCG TAB PO SCH (05:40)
[2016-11-12] MEDS: INSULIN ASPART SUPPLEMENTAL SCALE SQ SCH ×4 (05:41→21:45)
[2016-11-12] MEDS: CHLORHEXIDINE 0.12% (ORAL KIT) 15 ML CUP MT SCH ×2 (08:00→20:00)
[2016-11-12] MEDS: MULTIVITAMIN TAB PO SCH (08:31)
[2016-11-12] MEDS: PANTOPRAZOLE SOD 40 MG DELAYED RELEASE TAB PO SCH (08:31)
[2016-11-12] MEDS: FOLIC ACID 1 MG TAB PO SCH (08:31)
[2016-11-12] MEDS: THIAMINE HCL 100 MG TAB PO SCH (08:32)
[2016-11-12] MEDS: metFORMIN HCL 500 MG TAB PO SCH ×2 (08:32→17:35)
[2016-11-12] MEDS: BUDESONIDE-FORMOTEROL 160/4.5 MCG INHALER INH SCH ×2 (08:37→21:46)
--- NOTE | 2016-11-12 08:37 | HHI.PR ---
Subjective Remarks Late entry, this progress note is for 11/11/16 Denies any shortness of breath but still hypoxic without oxygen. No cough. No fever. Objective Vitals Vital Signs Date Time Temp Pulse Resp B/P Pulse Ox O2 Delivery O2 Flow Rate FiO2 11/12/16 08:18 97.9 72 20 106/62 94 11/12/16 04:00 92.9 70 20 116/60 97 11/12/16 04:00 Nasal Cannula 2.00 11/12/16 03:33 96 Nasal Cannula 2.00 11/12/16 00:03 97.4 71 20 118/64 97 11/12/16 00:00 Nasal Cannula 2.00 11/11/16 20:03 98.1 65 20 103/59 96 11/11/16 20:00 Nasal Cannula 2.00 11/11/16 16:00 97.0 66 18 111/55 94 11/11/16 15:17 96 Nasal Cannula 2.00 11/11/16 12:00 97.0 89 18 102/54 94 11/11/16 09:22 95 Nasal Cannula 2.00 I/O 11/11/16 11/11/16 11/11/16 11/12/16 11/12/16 11/12/16 07:00 15:00 23:00 07:00 15:00 23:00 Intake Total 360 ml 960 ml 480 ml Balance 360 ml 960 ml 480 ml Intake Oral 360 ml 960 ml 480 ml # Voids 2 2 2 # Bowel Movements 0 1 0 Objective Remarks GENERAL: 46-year-old female in no distress on 2 L nasal cannula EYES: Pupils equal and round about 5 mm bilaterally and reactive. No scleral icterus. No injection or drainage. ENT: No nasal bleeding or discharge. Mucous membranes pink and moist. NECK: Trachea midline. No JVD. Supple. Obese. CARDIOVASCULAR: Regular rate and rhythm. S1, S2. No S4. RESPIRATORY: No wheezing, no crackles. GASTROINTESTINAL: Abdomen soft, non-tender, obese. Normal active bowel sounds. MUSCULOSKELETAL: Extremities with bilateral nonpitting edema. No obvious deformities. NEUROLOGICAL: Awake and alert. No obvious cranial nerve deficits. Motor grossly within normal limits. Five out of 5 muscle strength in the arms and legs. Normal speech. Nonfocal Procedures Intubation A/P Problem List: (1) Hypercapnic respiratory failure ICD Code: J96.92 Status: Chronic (2) COPD exacerbation ICD Code: J44.1 Status: Resolved Assessment and Plan EtOH Acetaminophen for fever [place]/morphine for pain management Monitor for DTs, wean from CIWA -Supplement thiamine, and MVI and folate Acute hypercapnic respiratory failure -resolving COPD exacerbation. Resolved Likely KATIE -Nasal cannula to maintain saturations greater than equal to 92% -Incentive spirometry while awake -DuoNeb every 6 hours scheduled and when necessary -Repeat ABG still with mild hypercarbia, patient without confusion and headache. Tolerating nasal cannula did not require BiPAP. Failed Walk test, she will need home oxygen but no payor source, case management assisting. Discussed with case management. Outpatient sleep study. Cleared for discharge by pulmonary with oxygen if needed Leukocytosis - resolved Diabetes mellitus Hypothyroidism Sliding scale insulin Accu-Cheks every 6 before meals/at bedtime to maintain euglycemia Restart metformin -Electrolyte replacement as clinically indicated Continue Levoxyl 100 oziel grams by mouth daily PROPH: -Bilateral lower extremity SCDs. Heparin 500 sq q8. Protonix 40 mg qd Problem Qualifiers (1) Hypercapnic respiratory failure: Qualified Code: J96.22 - Acute on chronic respiratory failure with hypercapnia Willard Plata MD Nov 12, 2016 08:37
[2016-11-12] MEDS: SODIUM CHLORIDE 0.9% FLUSH 5 ML FLUSH IV FLUSH SCH ×2 (08:38→21:46)
[2016-11-12] MEDS: DOCUSATE SODIUM 100 MG CAP PO SCH ×2 (08:38→21:44)
[2016-11-12] MEDS: SENNOSIDES 8.6 MG TAB PO SCH (08:38)
[2016-11-12] MEDS: POLYETHYLENE GLYCOL 17 GM PKG PO SCH (08:38)
--- NOTE | 2016-11-12 09:10 | HHI.PR ---
Subjective Remarks Follow-up for hypoxia Still requiring oxygen, not short of breath, no cough. Objective Vitals Vital Signs Date Time Temp Pulse Resp B/P Pulse Ox O2 Delivery O2 Flow Rate FiO2 11/12/16 08:18 97.9 72 20 106/62 94 11/12/16 04:00 92.9 70 20 116/60 97 11/12/16 04:00 Nasal Cannula 2.00 11/12/16 03:33 96 Nasal Cannula 2.00 11/12/16 00:03 97.4 71 20 118/64 97 11/12/16 00:00 Nasal Cannula 2.00 11/11/16 20:03 98.1 65 20 103/59 96 11/11/16 20:00 Nasal Cannula 2.00 11/11/16 16:00 97.0 66 18 111/55 94 11/11/16 15:17 96 Nasal Cannula 2.00 11/11/16 12:00 97.0 89 18 102/54 94 11/11/16 09:22 95 Nasal Cannula 2.00 I/O 11/11/16 11/11/16 11/11/16 11/12/16 11/12/16 11/12/16 07:00 15:00 23:00 07:00 15:00 23:00 Intake Total 360 ml 960 ml 480 ml Balance 360 ml 960 ml 480 ml Intake Oral 360 ml 960 ml 480 ml # Voids 2 2 2 # Bowel Movements 0 1 0 Objective Remarks GENERAL: 46-year-old female in no distress on 2 L nasal cannula EYES: Pupils equal and round about 5 mm bilaterally and reactive. No scleral icterus. No injection or drainage. NECK: Trachea midline. No JVD. Supple. Obese. CARDIOVASCULAR: Regular rate and rhythm. S1, S2. No S4. RESPIRATORY: No wheezing, no crackles. GASTROINTESTINAL: Abdomen soft, non-tender, obese. Normal active bowel sounds. MUSCULOSKELETAL: Extremities with bilateral nonpitting edema. No obvious deformities. NEUROLOGICAL: Awake and alert. No obvious cranial nerve deficits. No focal deficits Procedures Intubation A/P Problem List: (1) Hypercapnic respiratory failure ICD Code: J96.92 Status: Chronic (2) COPD exacerbation ICD Code: J44.1 Status: Resolved Assessment and Plan EtOH Acetaminophen for fever [place]/morphine for pain management Monitor for DTs, wean from CIWA -Supplement thiamine, and MVI and folate Acute hypercapnic respiratory failure -resolving COPD exacerbation. Resolved Likely KATIE -Nasal cannula to maintain saturations greater than equal to 92% -Incentive spirometry while awake -DuoNeb every 6 hours scheduled and when necessary -Repeat ABG still with mild hypercarbia, patient without confusion and headache. Tolerating nasal cannula did not require BiPAP. Failed Walk test, she will need home oxygen but no payor source, case management assisting. Discussed with case management. Outpatient sleep study. Cleared for discharge by pulmonary with oxygen if needed, ambulate 3 times a day, incentive spirometry every hour, wean oxygen to room air Leukocytosis - resolved Diabetes mellitus Hypothyroidism Sliding scale insulin Accu-Cheks every 6 before meals/at bedtime to maintain euglycemia Restart metformin -Electrolyte replacement as clinically indicated Continue Levoxyl 100 oziel grams by mouth daily PROPH: -Bilateral lower extremity SCDs. Heparin 500 sq q8. Protonix 40 mg qd Problem Qualifiers (1) Hypercapnic respiratory failure: Qualified Code: J96.22 - Acute on chronic respiratory failure with hypercapnia Willard Plata MD Nov 12, 2016 09:10
[2016-11-13] VITALS (7 sets, daily range): BP systolic 93–120; BP diastolic 53–61; PULSE 67–88; RESP 18–20; TEMP 97.3–98.1; O2SAT 94–98
[2016-11-13] MEDS: ACETAMINOPHEN/HYDROcodone 325 MG/5 MG TAB PO PRN ×5 (02:14→20:46)
[2016-11-13] MEDS: ENOXAPARIN SODIUM 40 MG/0.4 ML SYRINGE SQ SCH (02:14)
[2016-11-13] MEDS: RESP: ALBUTEROL 2.5 MG/IPRATROPIUM 0.5 MG NEB (SCH) NEB (03:56)
[2016-11-13] MEDS: INSULIN ASPART SUPPLEMENTAL SCALE SQ SCH ×4 (06:50→20:45)
[2016-11-13] MEDS: LEVOTHYROXINE SODIUM 100 MCG TAB PO SCH (06:53)
[2016-11-13] MEDS: CHLORHEXIDINE 0.12% (ORAL KIT) 15 ML CUP MT SCH ×2 (08:00→20:00)
[2016-11-13] MEDS: SENNOSIDES 8.6 MG TAB PO SCH (09:00)
[2016-11-13] MEDS: DOCUSATE SODIUM 100 MG CAP PO SCH ×2 (09:00→20:46)
[2016-11-13] MEDS: POLYETHYLENE GLYCOL 17 GM PKG PO SCH (09:00)
[2016-11-13] MEDS: FOLIC ACID 1 MG TAB PO SCH (09:55)
[2016-11-13] MEDS: MULTIVITAMIN TAB PO SCH (09:55)
[2016-11-13] MEDS: THIAMINE HCL 100 MG TAB PO SCH (09:55)
[2016-11-13] MEDS: PANTOPRAZOLE SOD 40 MG DELAYED RELEASE TAB PO SCH (09:55)
[2016-11-13] MEDS: metFORMIN HCL 500 MG TAB PO SCH ×2 (09:55→16:49)
[2016-11-13] MEDS: SODIUM CHLORIDE 0.9% FLUSH 5 ML FLUSH IV FLUSH SCH ×2 (09:58→20:45)
[2016-11-13] MEDS: BUDESONIDE-FORMOTEROL 160/4.5 MCG INHALER INH SCH ×2 (09:58→20:47)
--- NOTE | 2016-11-13 10:59 | HHI.PR ---
Subjective Remarks Patient is not ambulating outside of the room, using incentive spirometry every hour. Not short of breath, afebrile. Objective Vitals Vital Signs Date Time Temp Pulse Resp B/P Pulse Ox O2 Delivery O2 Flow Rate FiO2 11/13/16 08:17 97.6 78 18 120/56 98 11/13/16 08:00 Nasal Cannula 2.00 11/13/16 04:00 97.3 88 18 111/53 94 11/13/16 03:57 96 Nasal Cannula 2.00 11/13/16 00:00 97.8 75 18 93/55 96 11/12/16 20:15 Nasal Cannula 2.00 11/12/16 20:00 97.4 74 18 113/61 94 11/12/16 19:45 95 Nasal Cannula 2.00 11/12/16 16:11 98.2 69 20 116/58 96 11/12/16 12:17 97.6 70 21 123/56 95 11/12/16 11:35 95 Nasal Cannula 2.00 I/O 11/12/16 11/12/16 11/12/16 11/13/16 11/13/16 11/13/16 07:00 15:00 23:00 07:00 15:00 23:00 Intake Total 960 ml 240 ml 480 ml Balance 960 ml 240 ml 480 ml Intake Oral 960 ml 240 ml 480 ml # Voids 6 2 2 # Bowel Movements 1 0 0 Objective Remarks GENERAL: 46-year-old female in no distress on 2 L nasal cannula EYES: Pupils equal and round about 5 mm bilaterally and reactive. No scleral icterus. No injection or drainage. NECK: Trachea midline. No JVD. Supple. Obese. CARDIOVASCULAR: Regular rate and rhythm. S1, S2. No S4. RESPIRATORY: No wheezing, no crackles. GASTROINTESTINAL: Abdomen soft, non-tender, obese. Normal active bowel sounds. MUSCULOSKELETAL: Extremities with bilateral nonpitting edema. No obvious deformities. NEUROLOGICAL: Awake and alert. No obvious cranial nerve deficits. No focal deficits Procedures Intubation A/P Problem List: (1) Hypercapnic respiratory failure ICD Code: J96.92 Status: Chronic (2) COPD exacerbation ICD Code: J44.1 Status: Resolved Assessment and Plan EtOH Acetaminophen for fever [place]/morphine for pain management Monitor for DTs, wean from CIWA -Supplement thiamine, and MVI and folate Acute hypercapnic respiratory failure -resolving COPD exacerbation. Resolved Likely KATIE -Nasal cannula to maintain saturations greater than equal to 92% -Incentive spirometry while awake -DuoNeb every 6 hours scheduled and when necessary -Repeat ABG still with mild hypercarbia, patient without confusion and headache. Tolerating nasal cannula did not require BiPAP. Failed Walk test, she will need home oxygen but no payor source, case management assisting. Discussed with case management. Outpatient sleep study. Cleared for discharge by pulmonary with oxygen if needed, ambulate 3 times a day, incentive spirometry every hour, wean oxygen to room air, discussed with RN, physical therapy daily. Transfer to [facility] if unable to wean her to stay, will give a dose of Lasix. Monitor urine output. Leukocytosis - resolved Diabetes mellitus Hypothyroidism Sliding scale insulin Accu-Cheks every 6 before meals/at bedtime to maintain euglycemia Restart metformin -Electrolyte replacement as clinically indicated Continue Levoxyl 100 oziel grams by mouth daily PROPH: -Bilateral lower extremity SCDs. Heparin 500 sq q8. Protonix 40 mg qd Problem Qualifiers (1) Hypercapnic respiratory failure: Qualified Code: J96.22 - Acute on chronic respiratory failure with hypercapnia Willard Plata MD Nov 13, 2016 10:59
[2016-11-13] MEDS ORDERED: FUROSEMIDE 40 MG/4 ML VIAL IV PUSH ONE (11:00)
[2016-11-14] VITALS (7 sets, daily range): BP systolic 103–125; BP diastolic 53–69; PULSE 67–74; RESP 16–20; TEMP 97.2–98.1; O2SAT 92–96
[2016-11-14] MEDS: ACETAMINOPHEN/HYDROcodone 325 MG/5 MG TAB PO PRN ×6 (00:49→21:22)
[2016-11-14] MEDS: ENOXAPARIN SODIUM 40 MG/0.4 ML SYRINGE SQ SCH (01:53)
[2016-11-14] MEDS: LEVOTHYROXINE SODIUM 100 MCG TAB PO SCH (05:00)
[2016-11-14] MEDS: INSULIN ASPART SUPPLEMENTAL SCALE SQ SCH ×4 (06:06→21:22)
[2016-11-14 06:58] LABS: BICARBONATE 37.2 MEQ/L (21.0-32.0); POTASSIUM 3.9 MEQ/L (3.5-5.1)
[2016-11-14 07:13] LABS: AUTOMATED NEUTROPHIL # 3.6 TH/MM3 (1.8-7.7); BASOPHIL % 0.7 % (0.0-2.0); EOSINOPHIL # 0.1 TH/MM3 (0-0.4); EOSINOPHIL % 2.2 % (0.0-4.0); HEMATOCRIT 37.5 % (35.0-46.0); HEMO FLAGS DIFF FINAL; LYMPHOCYTE # 1.2 TH/MM3 (1.0-4.8); MEAN CELL VOLUME 92.2 FL (80.0-100.0); MEAN CORPUSCULAR HEMOGLOBIN 29.1 PG (27.0-34.0); MEAN CORPUSCULAR HGB CONC 31.5 % (32.0-36.0); MONO % 8.1 % (0.0-8.0); PLATELET COUNT 175 TH/MM3 (150-450); RED BLOOD COUNT 4.07 MIL/MM3 (4.00-5.30); RED CELL DISTRIBUTION WIDTH 13.9 % (11.6-17.2); WHITE BLOOD COUNT 5.4 TH/MM3 (4.0-11.0)
[2016-11-14] MEDS: CHLORHEXIDINE 0.12% (ORAL KIT) 15 ML CUP MT SCH ×2 (08:00→20:00)
[2016-11-14] MEDS: POLYETHYLENE GLYCOL 17 GM PKG PO SCH (09:00)
[2016-11-14] MEDS: SENNOSIDES 8.6 MG TAB PO SCH (09:00)
[2016-11-14] MEDS: metFORMIN HCL 500 MG TAB PO SCH ×2 (09:00→17:11)
[2016-11-14] MEDS: BUDESONIDE-FORMOTEROL 160/4.5 MCG INHALER INH SCH ×2 (09:00→21:20)
[2016-11-14] MEDS: DOCUSATE SODIUM 100 MG CAP PO SCH ×2 (09:43→21:21)
[2016-11-14] MEDS: PANTOPRAZOLE SOD 40 MG DELAYED RELEASE TAB PO SCH (09:43)
[2016-11-14] MEDS: FOLIC ACID 1 MG TAB PO SCH (09:45)
[2016-11-14] MEDS: THIAMINE HCL 100 MG TAB PO SCH (09:45)
[2016-11-14] MEDS: MULTIVITAMIN TAB PO SCH (09:45)
[2016-11-14] MEDS: SODIUM CHLORIDE 0.9% FLUSH 5 ML FLUSH IV FLUSH SCH ×2 (09:47→21:21)
--- NOTE | 2016-11-14 11:15 | HHI.PR ---
Subjective Remarks Follow-up for COPD. Patient has no acute complaints today. She states her leg swelling has improved and she's been paying a lot on the Lasix. She also felt that it helped the discomfort in her chest. She states she's been ambulating in the room, awaiting PT today so she can ambulate out of the room with oxygen. She denies any shortness of breath. She is having some nasal itching, denies any nasal congestion. She states last year when she had a trach, and recommended she be on oxygen then as well. Objective Vitals Vital Signs Date Time Temp Pulse Resp B/P Pulse Ox O2 Delivery O2 Flow Rate FiO2 11/14/16 08:00 97.2 67 20 105/53 93 11/14/16 07:15 Nasal Cannula 1.00 11/14/16 04:00 97.8 74 18 113/56 95 11/14/16 00:00 97.5 73 18 105/54 92 11/13/16 20:00 97.4 67 18 104/57 95 11/13/16 20:00 Nasal Cannula 2.00 11/13/16 19:45 Nasal Cannula 2.00 11/13/16 16:27 98.1 72 20 110/61 95 11/13/16 12:20 97.7 73 18 106/53 95 I/O 11/13/16 11/13/16 11/13/16 11/14/16 11/14/16 11/14/16 07:00 15:00 23:00 07:00 15:00 23:00 Intake Total 480 ml 960 ml 240 ml 360 ml Balance 480 ml 960 ml 240 ml 360 ml Intake Oral 480 ml 960 ml 240 ml 360 ml # Voids 2 6 1 2 # Bowel Movements 0 2 0 0 Result Diagram: 11/14/16 0519 11/14/16 0519 Imaging Last Impressions Chest X-Ray 11/06/16 0600 Signed Impressions: Service Date/Time: Sunday, November 06, 2016 06:06 - CONCLUSION: No infiltrates seen. Abdulkadir Gómez MD CT Angiography 11/02/16 0000 Signed Impressions: Service Date/Time: Wednesday, November 02, 2016 05:51 - CONCLUSION: 1. Bibasilar atelectatic changes, left greater than right. 2. Endotracheal tube is identified with the tip at the level of the magdy and just entering the right mainstem bronchus. This should probably be backed off a centimeter or 2. 3. No pulmonary embolus. 4. Compensated cardiomegaly. Vincent Willson MD Objective Remarks GENERAL: Well-developed well-nourished morbidly obese. In no acute distress. On 1 L O2 nasal cannula. SKIN: Warm and dry. No lesions noted. HEENT: Normocephalic. Pupils equal and round. Mucous membranes pink and moist. CARDIOVASCULAR: Regular rate and rhythm. No murmur appreciated. RESPIRATORY: No accessory muscle use. Clear to auscultation. Breath sounds equal bilaterally. GASTROINTESTINAL: Abdomen soft, non-tender, nondistended. Bowel sounds x4. MUSCULOSKELETAL: No obvious deformities. No clubbing or cyanosis. No lower extremity edema. NEUROLOGICAL: Awake and alert. No focal neurological deficits. Moves upper and lower extremities spontaneously. Normal speech. PSYCHIATRIC: Appropriate mood and affect; insight and judgment normal. Procedures Intubation A/P Problem List: (1) Hypercapnic respiratory failure ICD Code: J96.92 Status: Chronic (2) COPD exacerbation ICD Code: J44.1 Status: Resolved Assessment and Plan Alcoholism Weaned from CIWA -Supplement thiamine, and MVI and folate Chronic pain -Acetaminophen for fever. Continue home [place] for pain management Acute hypercapnic respiratory failure -resolved COPD exacerbation. Resolved Likely KATIE Chronic respiratory failure Repeat ABGs continued to show mild hypercarbia -Nasal cannula to maintain saturations greater than equal to 92% -Incentive spirometry while awake -DuoNeb every 6 hours scheduled and when necessary -Failed Walk test, she will need home oxygen but no payor source, case management assisting. -Outpatient sleep study. -Cleared for discharge by pulmonary with oxygen if needed, -ambulate 3 times a day, incentive spirometry every hour, wean oxygen to room air, physical therapy daily. -Transfer to [place] if unable to wean her to stay -Given a dose of Lasix 11/13 which helped, give additional dose today -BMP 11/14 with increased bicarbonate. Leukocytosis - resolved Diabetes mellitus Hypothyroidism Sliding scale insulin Accu-Cheks every 6 before meals/at bedtime to maintain euglycemia -Continue metformin -Continue Levoxyl 100 oziel grams by mouth daily PROPH: -Bilateral lower extremity SCDs. Heparin 500 sq q8. Protonix 40 mg qd Discharge Planning Discharge planning when home oxygen is arranged or patient's respiratory status improves to where she does not need oxygen. Problem Qualifiers (1) Hypercapnic respiratory failure: Qualified Code: J96.22 - Acute on chronic respiratory failure with hypercapnia Gilberto Aguilar Nov 14, 2016 11:15
[2016-11-14] MEDS ORDERED: FUROSEMIDE 40 MG/4 ML VIAL IV PUSH ONE (12:45)
--- NOTE | 2016-11-14 13:15 | HHI.PR ---
Subjective Remarks On O2 2l. No complaints Will have home O2 arranged. Awaiting O2 approval. Objective Vital Signs Date Time Temp Pulse Resp B/P Pulse Ox O2 Delivery O2 Flow Rate FiO2 11/14/16 08:00 97.2 67 20 105/53 93 11/14/16 07:15 Nasal Cannula 1.00 11/14/16 04:00 97.8 74 18 113/56 95 11/14/16 00:00 97.5 73 18 105/54 92 11/13/16 20:00 97.4 67 18 104/57 95 11/13/16 20:00 Nasal Cannula 2.00 11/13/16 19:45 Nasal Cannula 2.00 11/13/16 16:27 98.1 72 20 110/61 95 I/O 11/13/16 11/13/16 11/13/16 11/14/16 11/14/16 11/14/16 07:00 15:00 23:00 07:00 15:00 23:00 Intake Total 480 ml 960 ml 240 ml 360 ml Balance 480 ml 960 ml 240 ml 360 ml Intake Oral 480 ml 960 ml 240 ml 360 ml # Voids 2 6 1 2 # Bowel Movements 0 2 0 0 Result Diagram: 11/14/1651811/14/16518 Objective Remarks GENERAL: This is an obese middle-aged white female whose is alert . HEAD, EYES, EARS, NOSE, THROAT: Head normocephalic. The pupils are reactive. Throat was clear. NECK: The neck is supple. No bruits. No thyroid enlargement. CHEST: Distant breath sounds . No crackles HEART: Heart sounds are regular. S1 and S2. No murmur or S3. ABDOMEN: Abdomen soft and obese without masses. No organomegaly or tenderness. The bowel sounds are active. EXTREMITIES: No edema and diminished peripheral pulses. NEUROLOGIC: No gross motor deficits. RECTAL: Rectal exam is deferred. SKIN: No lesions. Assessment and Plan Assessment and Plan IMPRESSION: 1. Hypercapnic respiratory failure, resolved. 2. Possible obstructive sleep apnea syndrome. 3. History of diabetes mellitus type 2. 4. Hypertension. 5. Alcohol intoxication. 6. Bibasilar atelectasis 7. Congestive heart failure. Plan : 1. Continue O2 at 2 L. 2. Arrange home O2 2l. 3. Ventolin HFA 2 puffs qid prn. 4. Arrange Sleep study as OP. 5. Spiriva 1 cap daily. 6. IS at bedside q3h. 7. Symbicort 160/4.5 mcg , 2 puffs bid. 8. Walk with help Celia Brink MD Nov 14, 2016 13:15
[2016-11-15 00:31] VITALS: BP 125/78; PULSE 73; RESP 22; TEMP 97.2; O2SAT 93
[2016-11-15] MEDS: ACETAMINOPHEN/HYDROcodone 325 MG/5 MG TAB PO PRN ×2 (01:34→05:34)
[2016-11-15] MEDS: ENOXAPARIN SODIUM 40 MG/0.4 ML SYRINGE SQ SCH (01:34)
[2016-11-15 04:00] VITALS: BP 124/63; PULSE 77; RESP 20; TEMP 97.6; O2SAT 96
[2016-11-15] MEDS: LEVOTHYROXINE SODIUM 100 MCG TAB PO SCH (05:34)
[2016-11-15] MEDS: INSULIN ASPART SUPPLEMENTAL SCALE SQ SCH ×2 (07:00→11:00)
[2016-11-15] MEDS: CHLORHEXIDINE 0.12% (ORAL KIT) 15 ML CUP MT SCH (08:00)
[2016-11-15 08:32] VITALS: BP 127/73; PULSE 70; RESP 17; TEMP 97.7; O2SAT 94
[2016-11-15 08:34] VITALS: O2SAT 96
[2016-11-15] MEDS: BUDESONIDE-FORMOTEROL 160/4.5 MCG INHALER INH SCH (08:57)
[2016-11-15] MEDS: SODIUM CHLORIDE 0.9% FLUSH 5 ML FLUSH IV FLUSH SCH (08:57)
[2016-11-15] MEDS: PANTOPRAZOLE SOD 40 MG DELAYED RELEASE TAB PO SCH (08:57)
[2016-11-15] MEDS: THIAMINE HCL 100 MG TAB PO SCH (08:58)
[2016-11-15] MEDS: MULTIVITAMIN TAB PO SCH (08:58)
[2016-11-15] MEDS: metFORMIN HCL 500 MG TAB PO SCH (08:58)
[2016-11-15] MEDS: FOLIC ACID 1 MG TAB PO SCH (08:58)
[2016-11-15] MEDS: SENNOSIDES 8.6 MG TAB PO SCH (08:59)
[2016-11-15] MEDS: POLYETHYLENE GLYCOL 17 GM PKG PO SCH (08:59)
[2016-11-15] MEDS: DOCUSATE SODIUM 100 MG CAP PO SCH (08:59)
[2016-11-15] MEDS ORDERED: FURO1TAB62 PO (09:00)
--- NOTE | 2016-11-15 10:01 | HHI.DS ---
Discharge Summary Admission Date Nov 02, 2016 at 02:30 Discharge Date: Nov 15, 2016 Admitting Diagnosis Respiratory Failure, hypercapneic (1) Hypercapnic respiratory failure ICD Code: J96.92 Diagnosis: Secondary (2) COPD exacerbation ICD Code: J44.1 Diagnosis: Principal Procedures Intubation Brief History - From Admission Brought in by EMS for worsening respiratory distress. Despite BiPAP NIV she progressed to hypercapneic respiratory failure and required intubation and mechanical ventilation. She has had several previous admissions for similar episodes. ETOH elevated at 193. Body habitus would promote obesity- hypoventilation syndrome. CBC/BMP: 11/14/16 0519 11/14/16 05 Significant Findings Laboratory Tests Test 11/14/16 05:19 Mean Corpuscular Hemoglobin 31.5 % Concent (32.0-36.0) Monocytes (%) (Auto) 8.1 % (0.0-8.0) Carbon Dioxide Level 37.2 MEQ/L (21.0-32.0) Blood Urea Nitrogen 19 MG/DL (7-18) Random Glucose 134 MG/DL (74-106) PE at Discharge GENERAL: Well-developed well-nourished morbidly obese. In no acute distress. On 1 L O2 nasal cannula. SKIN: Warm and dry. No lesions noted. HEENT: Normocephalic. Pupils equal and round. Mucous membranes pink and moist. CARDIOVASCULAR: Regular rate and rhythm. No murmur appreciated. RESPIRATORY: No accessory muscle use. Clear to auscultation. Breath sounds equal bilaterally. GASTROINTESTINAL: Abdomen soft, non-tender, nondistended. Bowel sounds x4. MUSCULOSKELETAL: No obvious deformities. No clubbing or cyanosis. No lower extremity edema. NEUROLOGICAL: Awake and alert. No focal neurological deficits. Moves upper and lower extremities spontaneously. Normal speech. PSYCHIATRIC: Appropriate mood and affect; insight and judgment normal. Pt Condition on Discharge: Stable Discharge Disposition: Discharge Home Discharge Time: > 30 minutes Discharge Instructions DIET: Follow Instructions for: Diabetic Diet Activities you can perform: Regular-No Restrictions Activities to Avoid: Driving Willard Plata MD Nov 15, 2016 10:01
--- NOTE | 2016-11-15 10:02 | HHI.DS ---
Discharge Summary Admission Date Nov 02, 2016 at 02:30 Discharge Date: Nov 15, 2016 Admitting Diagnosis Respiratory Failure, hypercapneic (1) Hypercapnic respiratory failure ICD Code: J96.92 Diagnosis: Secondary (2) COPD exacerbation ICD Code: J44.1 Diagnosis: Principal Procedures Intubation Brief History - From Admission Brought in by EMS for worsening respiratory distress. Despite BiPAP NIV she progressed to hypercapneic respiratory failure and required intubation and mechanical ventilation. She has had several previous admissions for similar episodes. ETOH elevated at 193. Body habitus would promote obesity- hypoventilation syndrome. CBC/BMP: 11/14/16 0519 11/14/16 0519 Significant Findings Laboratory Tests Test 11/14/16 05:19 Mean Corpuscular Hemoglobin 31.5 % Concent (32.0-36.0) Monocytes (%) (Auto) 8.1 % (0.0-8.0) Carbon Dioxide Level 37.2 MEQ/L (21.0-32.0) Blood Urea Nitrogen 19 MG/DL (7-18) Random Glucose 134 MG/DL (74-106) PE at Discharge GENERAL: Well-developed well-nourished morbidly obese. In no acute distress. On 1 L O2 nasal cannula. SKIN: Warm and dry. No lesions noted. HEENT: Normocephalic. Pupils equal and round. Mucous membranes pink and moist. CARDIOVASCULAR: Regular rate and rhythm. No murmur appreciated. RESPIRATORY: No accessory muscle use. Clear to auscultation. Breath sounds equal bilaterally. GASTROINTESTINAL: Abdomen soft, non-tender, nondistended. Bowel sounds x4. MUSCULOSKELETAL: No obvious deformities. No clubbing or cyanosis. No lower extremity edema. NEUROLOGICAL: Awake and alert. No focal neurological deficits. Moves upper and lower extremities spontaneously. Normal speech. PSYCHIATRIC: Appropriate mood and affect; insight and judgment normal. Pt update on day of discharge Patient feels better, shortness of breath is better, no nausea or vomiting. - 1.2 L every night, lower extremity swelling a lot better. On room air. Ambulating with no instability Hospital Course This is a 46-year-old female who presented to the hospital with acute hypercapnic respiratory failure secondary to KATIE and COPD exacerbation. Patient was initially intubated and was under the care of the sales and training specialist service. Please refer to the sales and training specialist notes for details with regard to patient's stay in the ICU. Patient was eventually extubated 11/03/16. Pulmonary was consulted and patient was transferred to the hospitalist service. Patient was empirically treated with bronchodilator, steroids and oxygen support. Patient improved slowly on nasal cannula, with remarkable improvement after Lasix. She'll be discharged on when necessary Lasix. She would need to follow-up with a primary care physician in pulmonary to do outpatient sleep study. I believe most of her respiratory issues are secondary to sleep apnea. Pt Condition on Discharge: Stable Discharge Disposition: Discharge Home Discharge Time: > 30 minutes Discharge Instructions DIET: Follow Instructions for: Diabetic Diet Activities you can perform: Regular-No Restrictions Activities to Avoid: Driving Follow up Referrals: PCP Follow-up - 1 Week New Medications: Albuterol 18 GM Inh (Ventolin Hfa 18 GM Inh) 90 Mcg/Act Aer 2 PUFF INH Q4H PRN SHORTNESS OF BREATH #1 Ref 0 INHALER Furosemide (Lasix) 20 Mg Tab 20 MG PO DAILY PRN leg swelling #30 Ref 0 TAB Ipratropium HFA 12.9 GM Inh (Atrovent HFA 12.9 GM Inh) 17 Mcg/Act Aer 2 PUFF INH Q6HR Breathing Treatment #1 Ref 0 INHALER Oxygen tank (Oxygen tank) 1 Ea Tank 2 LITER TREMAYNE.CANULA CONTINUOUS Oxygen Concentrator Portable Gaseous 2 L/min via Nasal Cannula Continuous For 99 months HYPOXEMIA PREVENTION #1 CYLINDER Tiotropium Inh (Spiriva Respimat Inh) 1.25 Mcg/Act Aero 2 PUFF INH DAILY 1.25 mcg = 1 inhalation Asthma Management #1 Ref 0 INHALER Walker with Front Wheels (Walker with Front Wheels) 1 Mis Mis 1 EA .ROUTE DIRECTED #1 Ref 0 EA Budesonide-Formoterol Inh (Symbicort Inh) 160-4.5 Mcg/Act Aero 1 PUFF INH Q12HR Breathing Treatment #1 INHALER Hydrocodone-Acetaminophen (Hydrocodone-Acetaminophen) 5-325 mg Tab 1 TAB PO Q6HR PRN pain #20 TAB Continued Medications: Levothyroxine (Synthroid) 100 Mcg Tab 100 MCG PO DAILY Thyroid #30 Ref 0 TAB Metformin (Glucophage) 1,000 Mg Tab 1000 MG PO BIDPC With a meal Blood Sugar Management #60 Ref 0 TAB Willard Plata MD Nov 15, 2016 10:02 Willard Plata MD Nov 15, 2016 10:02
--- NOTE | 2016-11-18 11:37 | RSPPFT ---
DATE OF PROCEDURE: 11/08/16 COMMENTS: Spirometry demonstrates an FEV1 of 1.3 at 49% of predicted, FVC of 1.7 at 53%, FEF 25-75 is 42% of predicted. Post-bronchodilator study demonstrated no significant change. Flow volume loops suggest a restrictive pattern. IMPRESSION: 1. Moderately severe restrictive disease. 2. Additional moderate obstructive disease. 3. No significant change following use of bronchodilator.
== END 2016-11-15 11:30 | disposition home or self-care (01) | DRG 208 ==
LOC: NEPC 21:49 → NEDA 11-02 02:30 → N03A 11-02 06:05 → N04A 11-05 16:42
PROVIDERS: ADMIT Surgery Surgical Critical Care; ATTEND Hospitalist
PROC: 0BH17EZ Insertion of Endotracheal Airway into Trachea, Via Natural or Artificial Opening (ICD-10-PCS; principal; 2016-11-02)
PROC: 5A1945Z Respiratory Ventilation, 24-96 Consecutive Hours (ICD-10-PCS; 2016-11-02)
PROC: 5A09357 Assistance with Respiratory Ventilation, Less than 24 Consecutive Hours, Continuous Positive Airway Pressure (ICD-10-PCS; 2016-11-02)
DX: J96.22 Acute and chronic respiratory failure with hypercapnia (principal); J44.1 Chronic obstructive pulmonary disease with (acute) exacerbation; I50.9 Heart failure, unspecified; J98.11 Atelectasis; Z68.43 Body mass index [BMI] 50.0-59.9, adult; F10.129 Alcohol abuse with intoxication, unspecified; E11.9 Type 2 diabetes mellitus without complications; E03.9 Hypothyroidism, unspecified; D72.829 Elevated white blood cell count, unspecified; Y90.6 Blood alcohol level of 120-199 mg/100 ml; G47.33 Obstructive sleep apnea (adult) (pediatric); J45.909 Unspecified asthma, uncomplicated; E66.01 Morbid (severe) obesity due to excess calories; I10 Essential (primary) hypertension; Z91.14 Patient's other noncompliance with medication regimen; Z87.891 Personal history of nicotine dependence; Z79.84 Long term (current) use of oral hypoglycemic drugs; Z88.1 Allergy status to other antibiotic agents; Z88.0 Allergy status to penicillin
CPT/HCPCS: 31500; 36600; 51702; 71010; 71275; 76937; 80048; 80053; 80307; 81001; 82550; 82805; 82948; 83605; 83690; 83735; 83880; 84100; 84484; 85025; 85379; 85610; 85730; 87641; 93005; 94002; 94003; 94060; 94150; 94620; 94640; 94664; 94667; 94668; 96361; 96374; 96375; J0330; J1650; J1815; J1940; J2250; J2405; J2930; J3411; J7030; Q9967

== ENCOUNTER 2016-11-18 21:02 | Inpatient (IN) | payer OTHER ==
[~2016-11-18] VITALS: Ht 162.6 cm; Wt 136.9 kg
[~2016-11-18 21:02] MED LIST changes: +FURO1TAB62 PO; +HYDR-3516 PO; +IPRA17I INH; +OXYGENTANK NAS.CANULA; +SYMB160A INH; +TIOT1AER2 INH; +VENTAER INH; +WALKER WHEELS/F1 MIS
[2016-11-18 21:08] VITALS: BP 135/65; PULSE 68; RESP 26; TEMP 98.7; O2SAT 88
[2016-11-18] MEDS ORDERED: ONDANSETRON HCL 4 MG/2 ML VIAL IV PUSH ONE (21:30)
[2016-11-18] MEDS ORDERED: SODIUM CHLORIDE 0.9% FLUSH 10 ML FLUSH IVF PRN ×2 (21:30→23:30)
[2016-11-18] MEDS ORDERED: methylPREDNISolone SOD SUCC 125 MG/2 ML VIAL IV PUSH ONE (21:30)
--- NOTE | 2016-11-18 21:30 | PD ---
HPI Chief Complaint: Respiratory Symptoms Time Seen by Provider: 21:19 Travel History International Travel<30 days: No Contact w/Intl Traveler<30days: No Traveled to known affect area: No History of Present Illness HPI 46-year-old female presents to the emergency department from home by EMS transport for complaint of nausea vomiting and shortness of breath with intermittent chest discomfort associated reportedly was using her recently prescribed bronchodilator inhaler. Patient was recently hospitalized 11/01/16 through 11/14/16 with hypercarbic respiratory failure requiring intubation and protracted admission. Patient was identified to have COPD with recommendation for outpatient supplemental oxygen which patient reportedly did not meet criteria for at time of discharge. Patient was discharged with prescription for albuterol inhaler, Lasix, Atrovent, supplemental oxygen which she did not get, Spiriva, Symbicort, hydrocodone, levothyroxine, and metformin as well as a walker. Patient reportedly has had several visits for respiratory related it illnesses nausea vomiting and alcohol related admissions. Patient is diabetic. Patient states she has not been blood monitoring her blood sugar. Patient also has history of peripheral neuropathy. Patient was identified to have received supplemental oxygen en route to the hospital 2 L/m nasal cannula and a 500 cc bolus of normal saline. Upon arrival patient was removed from supplemental nasal cannula oxygen and room air O2 saturation was 88% patient was placed back on submental oxygen with marked improvement of symptoms and subsequent O2 saturation of 96%. Patient denies any fever or chills. Patient does complain of some midline chest discomfort that is nonradiating at this time. Patient reports this as mild but describes it numerically as 8/10 in intensity. Patient denies prior history of cardiac disease. During her auscultation she did have a CTA which showed no evidence for PE. Patient does not report any new lower extremity pain or swelling or redness of the lower extremities. [facility] Past Medical History Narrative Medical Diabetes sleep apnea gastritis alcohol abuse ordered obesity COPD with respiratory failure and recent intubation CHF dyslipidemia gastritis hypertension peripheral neuropathy sleep apnea lower extremity cellulitis hypothyroidism eye surgery tracheostomy and G-tube insertion and removal family history of myocardial infarction in father positive alcohol use no tobacco use nursing notes reviewed Arthritis: No Asthma: Yes Autoimmune Disease: No Anxiety: Yes Depression: No Heart Rhythm Problems: Yes Cancer: No Cardiovascular Problems: Yes High Cholesterol: Yes Chemotherapy: No Chest Pain: No Congestive Heart Failure: Yes COPD: Yes Cerebrovascular Accident: No Diabetes: Yes Patient Takes Glucophage: Yes Diminished Hearing: No Endocrine: Yes Gastrointestinal Disorders: Yes (GASTRITIS) GERD: Yes Genitourinary: Yes Headaches: No Hiatal Hernia: No Heparin Induced Thrombocytopen: No Hypertension: Yes ("IN THE PAST") Immune Disorder: No Implanted Vascular Access Dvce: No Kidney Stones: No Musculoskeletal: Yes Neurologic: Yes (PERIPHERAL NEUROPATHY) Psychiatric: Yes Reproductive: No Respiratory: Yes (COPD, SLEEP APNEA) Integumentary: Yes (CELLUTLITIS HX BILATERAL LEGS) Immunizations Current: Yes Migraines: No Radiation Therapy: No Seizures: No Sickle Cell Disease: No Sleep Apnea: Yes Thyroid Disease: Yes (hypothyroid) Ulcer: No ?: Not Menopausal: Yes : 1 Para: 1 Miscarriage: 0 : 0 Past Surgical History Abdominal Surgery: No AICD: No Arteriovenous Shunt: No Cardiac Surgery: No Ear Surgery: No Endocrine Surgery: No Eye Surgery: Yes ("LAZY EYE" CORRECTION AT AGE 5) Genitourinary Surgery: No Gynecologic Surgery: No Insulin Pump: No Joint Replacement: No Neurologic Surgery: No Oral Surgery: No Pacemaker: No Thoracic Surgery: No Other Surgery: Yes (trach/g-tube) Family History Family Myocardial Infarction: Yes (GRANDFATHER SIDDIQUI) Social History Alcohol Use: Yes (3 X WEEK) Tobacco Use: No (QUIT 1999 1.5 PPD) Substance Use: No Allergies-Medications (Allergen,Severity, Reaction): Coded Allergies: Keflex (Verified Allergy, Severe, FACE SWELLS, 11/01/16) Penicillin (Verified Allergy, Severe, Anaphylaxis, 11/01/16) Clindamycin (Verified Allergy, Unknown, 11/01/16) STS IT PUT A HOLE IN HER LEG Doxycycline (Verified Adverse Reaction, Unknown, diarrhea, 11/01/16) Reported Meds & Prescriptions Reported Meds & Active Scripts Active Lasix (Furosemide) 20 Mg Tab 20 Mg PO DAILY PRN Symbicort Inh (Budesonide/Formoterol Fumarate) 160-4.5 Mcg/Act Aero 1 Puff INH Q12HR Spiriva Respimat Inh (Tiotropium Inh) 1.25 Mcg/Act Aero 2 Puff INH DAILY 1.25 mcg = 1 inhalation Atrovent HFA 12.9 GM Inh (Ipratropium Blanco) 17 Mcg/Act Aer 2 Puff INH Q6HR Ventolin Hfa 18 GM Inh (Albuterol Sulfate) 90 Mcg/Act Aer 2 Puff INH Q4H PRN Hydrocodone-Acetaminophen 5-325 mg Tab 1 Tab PO Q6HR PRN Reported Synthroid (Levothyroxine Sodium) 100 Mcg Tab 100 Mcg PO DAILY Glucophage (Metformin HCl) 1,000 Mg Tab 1,000 Mg PO BIDPC With a meal Review of Systems Except as stated in HPI: all other systems reviewed are Neg General / Constitutional: No: Fever, Chills HENT: No: Congestion Cardiovascular: Positive: Chest Pain or Discomfort (with medication and inhaler use) Respiratory: Positive: Cough, Shortness of Breath, Wheezing Gastrointestinal: Positive: Nausea (nonproductive), Vomiting, No: Abdominal Pain Genitourinary: No: Dysuria, Flank Pain Musculoskeletal: No: Myalgias, Arthralgias, Edema Skin: No Rash Neurologic: No: Weakness Psychiatric: Positive: Anxiety Endocrine: No: Cold Intolerance Hematologic/Lymphatic: No: Easy Bruising Physical Exam Narrative GENERAL: Well-developed well-nourished female in no acute distress no respiratory distress with supplemental oxygen in place 2 L/m nasal cannula with O2 saturation 96%; respiratory rate 18 nonlabored with supplemental oxygen in place; blood pressure 135/65; heart rate 63; afebrile. SKIN: Warm and dry. HEAD: Normocephalic. EYES: No scleral icterus. No injection or drainage. NECK: Supple, trachea midline. No JVD or lymphadenopathy. CARDIOVASCULAR: Regular rate and rhythm without murmurs, gallops, or rubs. RESPIRATORY: Breath sounds equal bilaterally. No accessory muscle use. GASTROINTESTINAL: Abdomen soft, non-tender, nondistended. MUSCULOSKELETAL: No cyanosis, or edema. Bilateral radial and dorsalis pedis pulses 2+ to palpation. BACK: Nontender without obvious deformity. No CVA tenderness. Data Data Last Documented VS Vital Signs Date Time Temp Pulse Resp B/P Pulse Ox O2 Delivery O2 Flow Rate FiO2 11/18/16 21:11 63 16 96 Nasal Cannula 2 11/18/16 21:08 98.7 135/65 Orders Complete Blood Count With Diff (11/18/16 21:17) Comprehensive Metabolic Panel (11/18/16 21:17) B-Type Natriuretic Peptide (11/18/16 21:17) Act Partial Throm Time (Ptt) (11/18/16 21:17) Prothrombin Time / Inr (Pt) (11/18/16 21:17) Magnesium (Mg) (11/18/16 21:17) Ckmb (Isoenzyme) Profile (11/18/16 21:17) Troponin I (11/18/16 21:17) Urinalysis - C+S If Indicated (11/18/16 21:17) Blood Culture (11/18/16 21:17) Iv Access Insert/Monitor (11/18/16 21:17) Electrocardiogram (11/18/16 21:17) Ecg Monitoring (11/18/16 21:17) Oximetry (11/18/16:17) Oxygen Administration (11/18/16:17) Chest, Single Ap (11/18/16 21:17) Sodium Chloride 0.9% Flush (Ns Flush) (11/18/16 21:30) Lactic Acid (11/18/16 21:17) Alcohol (Ethanol) (11/18/16 21:17) Ondansetron Inj (Zofran Inj) (11/18/16 21:30) Methylprednisolone So Succ Inj (Solumedr (11/18/16 21:30) MDM Medical Decision Making Medical Screen Exam Complete: Yes Emergency Medical Condition: Yes Medical Record Reviewed: Yes Interpretation(s) EKG normal sinus rhythm rate [address] elevation or injury pattern change noted nonspecific T-wave inversions septally V1 V2 Chest x-ray: No lobar infiltrate; reading per radiologist reports no lobar infiltrate and notes elevated left hemidiaphragm Differential Diagnosis Dyspnea, exacerbation COPD, CHF, ACS, PE, pneumonia Narrative Course 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
--- NOTE | 2016-11-18 21:49 | RADRPT ---
EXAM DATE/TIME: 11/18/2016 21:37 [facility] COMPARISON: CHEST SINGLE AP, November 06, 2016, 6:06. INDICATIONS : SOB MEDICAL HISTORY : None. SURGICAL HISTORY : None. ENCOUNTER: Initial ACUITY: 1 day PAIN SCORE: 0/10 LOCATION: chest FINDINGS: Mild stable elevation of the left diaphragm. Gaseous distention of bowel in the left upper quadrant. Lungs are grossly clear. No significant effusion suspected. Mild cardiac enlargement which appears gr ossly stable. CONCLUSION: Elevated diaphragm with mild gaseous distention of bowel in the left upper quadrant. Compensated card iomegaly in the chest Jasbir Shepherd MD on November 18, 2016 at 21:47 Board Certified Radiologist. This report was verified electronically.
[2016-11-18 22:26] LABS: BASOPHIL % 0.8 % (0.0-2.0); EOSINOPHIL # 0.1 TH/MM3 (0-0.4); EOSINOPHIL % 2.2 % (0.0-4.0); HEMATOCRIT 39.9 % (35.0-46.0); HEMO FLAGS DIFF FINAL; LYMPH % 28.2 % (9.0-44.0); LYMPHOCYTE # 1.8 TH/MM3 (1.0-4.8); MEAN CELL VOLUME 91.3 FL (80.0-100.0); MEAN CORPUSCULAR HEMOGLOBIN 29.7 PG (27.0-34.0); MEAN CORPUSCULAR HGB CONC 32.5 % (32.0-36.0); MONO % 4.9 % (0.0-8.0); NEUT % 63.9 % (16.0-70.0); PLATELET COUNT 224 TH/MM3 (150-450); RED BLOOD COUNT 4.37 MIL/MM3 (4.00-5.30); RED CELL DISTRIBUTION WIDTH 14.3 % (11.6-17.2); WHITE BLOOD COUNT 6.3 TH/MM3 (4.0-11.0)
[2016-11-18 22:29] LABS: ANION GAP 11 MEQ/L (5-15); AST (GOT) 20 U/L (15-37); BICARBONATE 29.5 MEQ/L (21.0-32.0); BLOOD UREA NITROGEN 9 MG/DL (7-18); CHLORIDE 98 MEQ/L (98-107); GLOMERULAR FILTRATION RATE 76 ML/MIN (>89); MAGNESIUM 1.9 MG/DL (1.5-2.5); POTASSIUM 3.7 MEQ/L (3.5-5.1); SODIUM (NA) 138 MEQ/L (136-145)
[2016-11-18 22:32] LABS: ALKALINE PHOSPHATASE 107 U/L (45-117); ALT (GPT) 25 U/L (10-53); APTT (PATIENT) 23.7 SEC (24.3-30.1); INTERNATIONAL NORMALIZED RATIO 0.9 RATIO; PROTHROMBIN TIME - PATIENT 10.1 SEC (9.8-11.6); TOTAL BILIRUBIN ADULT 0.3 MG/DL (0.2-1.0)
[2016-11-18 22:33] LABS: CREATINE KINASE 55 U/L (26-192)
[2016-11-18] MEDS ORDERED: KETOROLAC TROMETHAMINE 30 MG/ML (IVP) VIAL IV PUSH ONE (22:45)
[2016-11-18] MEDS ORDERED: SODIUM CHLORID 0.9% 500 ML INJ 500 ML IV ONE (22:45)
[2016-11-18 23:00] VITALS: BP 130/62; PULSE 70; RESP 16; TEMP 98.6; O2SAT 96
[2016-11-18] MEDS ORDERED: ONDANSETRON HCL 4 MG/2 ML VIAL IVP PRN (23:30)
[2016-11-18] MEDS ORDERED: DEXTROSE 50% IN WATER 50 ML VIAL(D50) IV PUSH PRN (23:30)
[2016-11-18] MEDS ORDERED: RESP: ALBUTEROL 2.5 MG/IPRATROPIUM 0.5 MG NEB (SCH) NEB ONE (23:30)
[2016-11-18] MEDS ORDERED: NALOXONE HCL 0.4 MG/ML AMP IV PRN (23:30)
[2016-11-18] MEDS ORDERED: ASPIRIN 325 MG TAB PO SCH (23:30)
[2016-11-18] MEDS ORDERED: LORazepam 2 MG TAB PO PRN (23:30)
[2016-11-18] MEDS ORDERED: ACETAMINOPHEN 325 MG TAB PO PRN ×2 (23:30)
[2016-11-18] MEDS ORDERED: LORazepam 1 MG TAB PO PRN (23:30)
[2016-11-18] MEDS ORDERED: SENNOSIDES 8.6 MG TAB PO PRN (23:30)
[2016-11-18] MEDS ORDERED: SODIUM CHLORIDE 0.9% FLUSH 10 ML FLUSH IV FLUSH PRN (23:30)
[2016-11-18] MEDS ORDERED: NITROGLYCERIN 0.4 MG SL 25 TABS/BTL SL PRN (23:30)
[2016-11-18] MEDS ORDERED: GLUCAGON 1 MG/ML VIAL OTHER PRN (23:30)
[2016-11-18] MEDS ORDERED: HALOPERIDOL LACTATE 5 MG/ML AMP IM PRN (23:30)
[2016-11-18] MEDS ORDERED: LORazepam 2 MG/ML VIAL IV PUSH PRN ×4 (23:30)
[2016-11-18] MEDS ORDERED: FLUMAZENIL 0.5 MG/5 ML VIAL IV PUSH PRN (23:30)
--- NOTE | 2016-11-18 23:31 | HHI.HP ---
[facility] Service [facility] Primary Care Physician No Primary Care Physician Admission Diagnosis exacerbation copd; alcohol use; lactic acidosis Diagnoses: Chief Complaint: Shortness of breath Travel History International Travel<30 Days: No Contact w/Intl Traveler <30 Da: No Traveled to Known Affected Are: No History of Present Illness This is a 46-year-old female with a history of peripheral neuropathy, diabetes mellitus, congestive heart failure, hyperlipidemia, gastritis, hypertension, hypothyroidism, COPD, KATIE and recent admission for acute hypercarbic respiratory failure requiring intubation. She was discharged from the hospital after prolonged hospitalization 3 days ago supposedly with oxygen but was unable to obtain. Patient states for 2 days she has worsening dyspnea with exertion associated with wheezing, transient nonexertional sharp retrosternal pain 8 out of 10 in severity without radiation, chills and nonproductive cough. She denies fever. She has neuropathic pain in her extremities and swelling on as needed Lasix. She has Nausea and vomiting with inhaler use. She received fluid bolus, oxygen from EMS. On room air she was 88%. Review of Systems Constitutional: COMPLAINS OF: Chills, DENIES: Diaphoretic episodes, Fatigue, Fever, Weight gain, Weight loss, Dizziness, Change in appetite, Night Sweats Endocrine: DENIES: Heat/cold intolerance, Polydipsia, Polyuria, Polyphagia Eyes: DENIES: Blurred vision, Diplopia, Vision loss, Photosensitivity Ears, nose, mouth, throat: DENIES: Tinnitus, Vertigo, Throat pain, Hoarseness, Epistaxis, Odynophagia Respiratory: COMPLAINS OF: Cough, Wheezing, Shortness of breath, DENIES: Hemoptysis, Sputum production Cardiovascular: COMPLAINS OF: Chest pain, Dyspnea on Exertion, Lower Extremity Edema, DENIES: Palpitations, Syncope, PND, Orthopnea, Claudication Gastrointestinal: DENIES: Abdominal pain, Black stools, Bloody stools, Constipation, Diarrhea, Nausea, Vomiting, Difficulty Swallowing, Anorexia Genitourinary: DENIES: Urinary frequency, Urinary incontinence, Urgency, Hematuria, Dysuria, Nocturia, Vaginal discharge Integumentary: DENIES: Rash Neurologic: COMPLAINS OF: Paresthesias, DENIES: Headache, Localized weakness, Seizures, Tremor, Poor Balance Psychiatric: DENIES: Anxiety, Confusion, Depression, Hallucinations, Agitation , Suicidal Ideation, Homicidal Ideation, Delusions Past Family Social History Past Medical History COPD Neuropathy KATIE - suspected but not confirmed Diabetes Mellitus CHF Hyperlipidemia Hypertension . Past Surgical History G-tube Insertion and removal, eye surgery, tracheostomy Reported Medications As needed Lasix, Symbicort, Spiriva, Atrovent, Ventolin, hydrocodone, Synthroid and Glucophage Allergies: Coded Allergies: Keflex (Verified Allergy, Severe, FACE SWELLS, 11/01/16) Penicillin (Verified Allergy, Severe, Anaphylaxis, 11/01/16) Clindamycin (Verified Allergy, Unknown, 11/01/16) STS IT PUT A HOLE IN HER LEG Doxycycline (Verified Adverse Reaction, Unknown, diarrhea, 11/01/16) Family History Diabetes mellitus Social History She has quit tobacco use. Continues to drink. Physical Exam Vital Signs Vital Signs Date Time Temp Pulse Resp B/P Pulse Ox O2 Delivery O2 Flow Rate FiO2 11/18/16 22:00 Nasal Cannula 2 11/18/16 21:11 63 16 96 Nasal Cannula 2 11/18/16 21:08 98.7 68 26 135/65 88 Physical Exam GENERAL: Well-developed, obese in no distress on nasal cannula SKIN: Warm and dry. HEAD: Atraumatic. Normocephalic. EYES: Pupils equal and round. No scleral icterus. No injection or drainage. ENT: No nasal bleeding or discharge. Mucous membranes pink and moist. NECK: Trachea midline. No JVD. CARDIOVASCULAR: Regular rate and rhythm. RESPIRATORY: No accessory muscle use. Clear to auscultation. Decreased Breath sounds equal bilaterally. GASTROINTESTINAL: Abdomen soft, non-tender, nondistended. Hepatic and splenic margins not palpable. MUSCULOSKELETAL: Extremities without clubbing, cyanosis but with bilateral trace edema and erythema; not warm, slightly tender - looks like sunburn - appears to have a sock line bilaterally No obvious deformities. NEUROLOGICAL: Awake and alert. No obvious cranial nerve deficits. Motor grossly within normal limits. Five out of 5 muscle strength in the arms and legs. Normal speech. PSYCHIATRIC: Appropriate mood and affect; insight and judgment normal. Laboratory Laboratory Tests Test 11/18/16 21:30 White Blood Count 6.3 Red Blood Count 4.37 Hemoglobin 13.0 Hematocrit 39.9 Mean Corpuscular Volume 91.3 Mean Corpuscular Hemoglobin 29.7 Mean Corpuscular Hemoglobin 32.5 Concent Red Cell Distribution Width 14.3 Platelet Count 224 Mean Platelet Volume 10.4 Neutrophils (%) (Auto) 63.9 Lymphocytes (%) (Auto) 28.2 Monocytes (%) (Auto) 4.9 Eosinophils (%) (Auto) 2.2 Basophils (%) (Auto) 0.8 Neutrophils # (Auto) 4.0 Lymphocytes # (Auto) 1.8 Monocytes # (Auto) 0.3 Eosinophils # (Auto) 0.1 Basophils # (Auto) 0.0 CBC Comment DIFF FINAL Differential Comment Prothrombin Time 10.1 Prothromb Time International 0.9 Ratio Activated Partial 23.7 Thromboplast Time Sodium Level 138 Potassium Level 3.7 Chloride Level 98 Carbon Dioxide Level 29.5 Anion Gap 11 Blood Urea Nitrogen 9 Creatinine 0.81 Estimat Glomerular Filtration 76 Rate Random Glucose 190 Lactic Acid Level 4.4 Calcium Level 8.1 Magnesium Level 1.9 Total Bilirubin 0.3 Aspartate Amino Transf 20 (AST/SGOT) Alanine Aminotransferase 25 (ALT/SGPT) Alkaline Phosphatase 107 Total Creatine Kinase 55 Troponin I LESS THAN 0.02 B-Type Natriuretic Peptide 46 Total Protein 6.8 Albumin 3.0 Ethyl Alcohol Level 158 Date/Time Procedure Status Source Growth 11/18/16 21:30 Aerobic Blood Culture Received Blood Peripheral Pending 11/18/16 21:30 Anaerobic Blood Culture Received Blood Peripheral Pending Result Diagram: 11/18/[id number]/[id number]/[id number] Imaging EKG tracing interpreted by me with sinus rhythm no acute ST-T changes Chest x-ray image interpreted by me with elevated diaphragm Last Impressions Chest X-Ray 11/18/[id number] Signed Impressions: Service Date/Time: Friday, November 18, 2016 21:37 - CONCLUSION: Elevated diaphragm with mild gaseous distention of bowel in the left upper quadrant. Compensated cardiomegaly in the chest Jasbir Shepherd MD Assessment and Plan Problem List: (1) COPD exacerbation ICD Code: J44.1 Status: Acute Assessment and Plan This is a 46-year-old female with a history of peripheral neuropathy, diabetes mellitus, congestive heart failure, hyperlipidemia, gastritis, hypertension, hypothyroidism, COPD, KATIE and recent admission for acute hypercarbic respiratory failure requiring intubation. She was discharged from the hospital after prolonged hospitalization 3 days ago supposedly with oxygen but was unable to obtain. Patient states for 2 days she has worsening dyspnea with exertion associated with wheezing, transient nonexertional sharp retrosternal pain 8 out of 10 in severity without radiation, chills and nonproductive cough. She denies fever. She has neuropathic pain in her extremities and swelling on as needed Lasix. She has Nausea and vomiting with inhaler use. She received fluid bolus, oxygen from EMS. On room air she was 88%. COPD Exacerbation with hypoxia and recent admission for acute hypercarbic respiratory failure requiring intubation. Start scheduled nebulization, albuterol as needed, oxygen to keep saturation at least 92%, IV Solu-Medrol and IV Levaquin. Case management consult to assist with home oxygen. Consider pulmonary consult Noncompliance. Patient counseled Lactic acidosis likely secondary to hypoxia. Patient also on metformin which will be discontinued. Start IV hydration and repeat lactic acid in the morning Nausea and vomiting with inhaler use. Denies abdominal pain. Will monitor Alcohol abuse. Counseled. [facility] protocol Bilateral lower extremity dermatitis. We'll monitor Chronic medical conditions of peripheral neuropathy, diabetes mellitus, congestive heart failure, hyperlipidemia, gastritis, hypertension, hypothyroidism and suspected KATIE. Continue outpatient medications as appropriate, monitor fingerstick sugars sliding scale coverage and outpatient follow-up for sleep studies. BiPAP as needed DVT prophylaxis with SCD and heparin Written by Kassandra Conrad, acting as scribe for Dr. Longoria on 11/18/16 at 23:50. All or portions of this note were transcribed by scribe Kassandra Conrad. I, Dr. Jose Longoria personally performed the history, physical exam, and medical decision making; and confirmed the accuracy of the information in the transcribed note. Authenticated by Dr. Jose Longoria on 11/19/16 at 01:32. Code Status FULL CODE . Discussed Condition With ER physician, patient, RN . Kassandra Conrad Nov 18, 2016 23:31 Jose Longoria MD Nov 19, 2016 01:31
[2016-11-18 23:39] LABS: BACTERIA, URINE RARE /hpf; BLOOD, URINE NEG (NEG); COMMENT (UR) CULT NOT INDICATED; CULTURE IF INDICATED CULT NOT INDICATED; GLUCOSE,URINE NEG (NEG); KETONE, URINE NEG (NEG); MUCUS URINE FEW /lpf (OCC); NITRITE,URINE NEG (NEG); PH, URINE 5.5 (5.0-8.5); SQUAMOUS EPITHELIAL CELL URINE 5 /hpf (0-5); URINE COLOR LIGHT-YELLOW (YELLW/STRAW)
[2016-11-18 23:40] VITALS: O2SAT 95
[2016-11-19] VITALS (11 sets, daily range): BP systolic 114–132; BP diastolic 58–81; PULSE 61–82; RESP 16–22; TEMP 97.4–98; O2SAT 91–97
[2016-11-19] MEDS ORDERED: ASPIRIN 81 MG CHEW TAB CHEW ONE (00:15)
[2016-11-19] MEDS ORDERED: RESP: ALBUTEROL 2.5 MG/IPRATROPIUM 0.5 MG NEB (SCH) NEB ONE (00:15)
[2016-11-19] MEDS: SODIUM CHLOR 0.9% 1000 ML INJ 1,000 ML IV SCH ×2 (00:28→09:20)
[2016-11-19] MEDS ORDERED: LEVOFLOXACIN 750 MG PREMIX INJ 150 ML IV SCH ×2 (00:30)
[2016-11-19] MEDS: ACETAMINOPHEN/HYDROcodone 325 MG/7.5 MG TAB PO PRN ×5 (00:30→21:48)
[2016-11-19] MEDS: MORPHINE SULFATE 4 MG/ML INJ IV PRN ×4 (02:04→18:42)
[2016-11-19 02:15] LABS: CREATINE KINASE 29 U/L (26-192)
[2016-11-19] MEDS: RESP: ALBUTEROL 2.5 MG/IPRATROPIUM 0.5 MG NEB (SCH) INH ×4 (03:21→19:57)
[2016-11-19] MEDS: LEVOTHYROXINE SODIUM 100 MCG TAB PO SCH (06:35)
[2016-11-19] MEDS: methylPREDNISolone SOD SUCC 125 MG/2 ML VIAL IVP SCH ×4 (06:35→17:26)
[2016-11-19] MEDS: INSULIN ASPART SUPPLEMENTAL SCALE SQ SCH ×4 (06:38→21:00)
--- NOTE | 2016-11-19 08:06 | HHI.PR ---
Subjective Remarks Follow up for COPD Exacerbation. The patient continues to feel short of breath with wheezing. No fevers/chills. She has bilateral lower rib cage pain, worse with cough and deep inspiration. Objective Vitals Vital Signs Date Time Temp Pulse Resp B/P Pulse Ox O2 Delivery O2 Flow Rate FiO2 11/19/16 07:58 98.0 61 20 120/73 97 11/19/16 04:59 74 16 130/75 91 11/19/16 02:38 97.8 69 16 132/73 95 11/19/16 01:00 70 22 130/66 98 11/19/16 00:31 94 Venturi Mask 50 11/18/16 23:40 95 Nasal Cannula 4.00 11/18/16 23:00 98.6 70 16 130/62 96 11/18/16 22:00 Nasal Cannula 2 11/18/16 21:11 63 16 96 Nasal Cannula 2 11/18/16 21:08 98.7 68 26 135/65 88 Result Diagram: 11/18/16212911/18/162129 Imaging Last Impressions Chest X-Ray 11/18/162116 Signed Impressions: Service Date/Time: Friday, November 18, 2016 21:37 - CONCLUSION: Elevated diaphragm with mild gaseous distention of bowel in the left upper quadrant. Compensated cardiomegaly in the chest Jasbir Shepherd MD Objective Remarks GENERAL: Well-nourished, well-developed obese middle aged female patient in [facility]. SKIN: Warm and dry. No rash. HEENT: Normocephalic. Atraumatic. Pupils equal and round. No scleral icterus. No injection or drainage. Mucous membranes pink and moist. NECK: Supple. Trachea midline. CARDIOVASCULAR: Regular rate and rhythm. S1, S2 noted. No murmur appreciated. RESPIRATORY: No accessory muscle use. Decreased breath sounds but no wheezing, clear to auscultation. Breath sounds equal bilaterally. GASTROINTESTINAL: Abdomen soft, non-tender, nondistended. Normoactive bowel sounds x4. MUSCULOSKELETAL: No obvious deformities. Extremities without clubbing, cyanosis , or edema. NEUROLOGICAL: Awake and alert. No obvious cranial nerve deficits. Motor grossly within normal limits. 5/5 muscle strength in bilateral upper and lower extremities. Normal speech. PSYCHIATRIC: Appropriate mood and affect; insight and judgment normal. Medications and IVs Current Medications Medications (Trade) Dose Ordered Sig/Sonja Route Start Time Stop Time Status Last Admin (SoluMEDROL INJ) 60 mg Q6HR IVP 11/19/16 00:00 11/19/16 06:35 (D50w (Vial) Inj) 25 ml UNSCH PRN IV PUSH 11/18/16 23:30 (Glucagon Inj) 1 mg UNSCH PRN OTHER 11/18/16 23:30 (Aspirin) 325 mg NOW PO 11/18/16 23:30 11/19/16 23:29 (Nitrostat Sl) 0.4 mg Q5M PRN SL 11/18/16 23:30 (Folate) 1 mg DAILY PO 11/19/16 09:00 11/24/16 08:59 (Vitamin B1) 100 mg DAILY PO 11/19/16 09:00 (Theragran M Tab) 1 tab DAILY PO 11/19/16 09:00 11/24/16 08:59 (Romazicon Inj) 0.2 mg Q1M PRN IV PUSH 11/18/16 23:30 (Ativan) 1 mg Q4H PRN PO 11/18/16 23:30 (Ativan Inj) 1 mg Q4H PRN IV PUSH 11/18/16 23:30 (Ativan) 2 mg Q2H PRN PO 11/18/16 23:30 (Ativan Inj) 2 mg Q2H PRN IV PUSH 11/18/16 23:30 (Ativan Inj) 2 mg Q1H PRN IV PUSH 11/18/16 23:30 (Ativan Inj) 2 mg Q15M PRN IV PUSH 11/18/16 23:30 (Haldol Inj) 2 mg Q15M PRN IM 11/18/16 23:30 (Symbicort 160-4.5 Inh) 1 puff Q12HR INH 11/19/16 09:00 (Synthroid) 100 mcg DAILY@0600 PO 11/19/16 06:00 11/19/16 06:35 Patient Own Medication PT OWN MED: Aerosol Solution, Inhalati... DAILY INH 11/19/16 09:00 Future Hold (NS Flush) 2 ml UNSCH PRN IV FLUSH 11/18/16 23:30 (NS Flush) 2 ml BID IV FLUSH 11/19/16 09:00 (Tylenol) 650 mg Q4H PRN PO 11/18/16 23:30 (Zofran Inj) 4 mg Q6H PRN IVP 11/18/16 23:30 (Colace) 100 mg Q12HR PO 11/19/16 09:00 (Senokot) 17.2 mg Q12H PRN PO 11/18/16 23:30 (Heparin Inj) 5,000 units Q12HR SQ 11/19/16 09:00 (Tylenol) 650 mg Q6H PRN PO 11/18/16 23:30 ([place] 5-325 Mg) 1 tab Q4H PRN PO 11/18/16 23:30 ([place] 7.5-325 Mg) 1 tab Q4H PRN PO 11/18/16 23:30 11/19/16 05:27 (Morphine Inj) 1 mg Q3H PRN IV 11/18/16 23:30 11/19/16 02:04 Naloxone HCl 0.4 mg 0.4 mg UNSCH PRN IV 11/18/16 23:30 Sodium Chloride 1,000 ml @ 100 mls/hr Q10H IV 11/18/16 23:45 11/19/16 00:28 (Levaquin 750 Mg Premix Inj) 150 ml @ 100 mls/hr Q24H IV 11/19/16 00:00 11/19/16 00:28 Urinary Catheter: No Vascular Central Line Catheter: No A/P Problem List: (1) COPD exacerbation ICD Code: J44.1 Status: Acute Assessment and Plan 46-year-old female with a history of peripheral neuropathy, DM, CHF, HLD, HTN, gastritis, hypothyroidism, COPD, KATIE and recent admission 11/02/16-11/15/16 for acute hypercarbic respiratory failure requiring intubation, supposedly discharged with oxygen but was unable to obtain. Now 2 days worsening DORMAN, wheezing, transient nonexertional sharp retrosternal pain 8/10, chills and nonproductive cough. Denies fever. She has neuropathic pain in her extremities and swelling on as needed Lasix. She has Nausea and vomiting with inhaler use. She received fluid bolus, oxygen from EMS. On room air she was 88%. COPD Exacerbation with hypoxia: Failed Outpatient. Recent admission for acute hypercarbic respiratory failure requiring intubation. Continue Duonebs q6h sonja , albuterol as needed, oxygen to keep saturation at least 92%, IV Solu-Medrol 60mg q6h, and IV Levaquin. Case management consult to assist with home oxygen and nebulizer. Consider pulmonary consult if no improvement. Noncompliance: Patient counseled on importance of adherence to medical treatment plan. Lactic acidosis: likely secondary to hypoxia. Patient also on metformin which will be discontinued. Start IV hydration and repeat lactic acid today 3.9. Blood cultures with NGTD. Nausea and vomiting: with inhaler use. Denies abdominal pain. Will monitor. No further episodes overnight. Alcohol abuse: Counseled. Thiamine/MV/folate. CIWA protocol. Bilateral lower extremity dermatitis: monitor Chronic medical conditions of peripheral neuropathy, diabetes mellitus, congestive heart failure, hyperlipidemia, gastritis, hypertension, hypothyroidism and suspected KATIE. Continue outpatient medications as appropriate, monitor fingerstick sugars sliding scale coverage and outpatient follow-up for sleep studies. BiPAP as needed. DVT prophylaxis with SCD and heparin Written by Carrol Dumont, acting as scribe for Dr. Peraza on 11/19/16 at 08:26. All or portions of this note were transcribed by jaret CALDERON. I, Dr. Zoie Peraza personally performed the history, physical exam, and medical decision making; and confirmed the accuracy of the information in the transcribed note. Authenticated by Dr. Zoie Peraza on 11/19/16 at 08:26. Carrol Dumont PA-C Nov 19, 2016 08:06 Zoie Peraza MD Nov 19, 2016 12:57
[2016-11-19] MEDS: HEPARIN SODIUM - SQ 10,000 UNITS/ML VIAL SQ SCH ×2 (08:42→21:49)
[2016-11-19] MEDS: MULTIVITAMINS/MINERALS THERAPEUTIC TAB PO SCH (08:43)
[2016-11-19] MEDS: SODIUM CHLORIDE 0.9% FLUSH 10 ML FLUSH IV FLUSH SCH ×2 (08:43→21:00)
[2016-11-19] MEDS: FOLIC ACID 1 MG TAB PO SCH (08:43)
[2016-11-19] MEDS: DOCUSATE SODIUM 100 MG CAP PO SCH ×2 (08:43→21:49)
[2016-11-19] MEDS: THIAMINE HCL 100 MG TAB PO SCH (08:45)
[2016-11-19] MEDS ORDERED: SODIUM CHLORIDE 0.9% FLUSH 10 ML FLUSH IV FLUSH SCH (09:00)
[2016-11-19] MEDS ORDERED: TIOTROPIUM INH SCH (09:00)
[2016-11-19] MEDS: BUDESONIDE-FORMOTEROL 160/4.5 MCG INHALER INH SCH ×2 (10:25→21:47)
--- NOTE | 2016-11-19 16:11 | EKG ---
Date Performed: 11/19/2016 Time Performed: 05:16:15 PTAGE: 46 years EKG: Sinus rhythm Since previous tracing, no significant change noted NORMAL ECG PREVIOUS TRACING : 11/19/2016 01.35 DOCTOR: Ventura Julian Interpretating Date/Time 11/19/2016 16:10:31
--- NOTE | 2016-11-19 16:11 | EKG ---
Date Performed: 11/19/2016 Time Performed: 01:35:01 PTAGE: 46 years EKG: Sinus rhythm Since previous tracing, no significant change noted NORMAL ECG PREVIOUS TRACING : 11/18/2016 21.12 DOCTOR: Ventura Julian Interpretating Date/Time 11/19/2016 16:10:11
--- NOTE | 2016-11-19 16:11 | EKG ---
Date Performed: 11/18/2016 Time Performed: 21:12:22 PTAGE: 46 years EKG: Sinus rhythm Since previous tracing, no significant change noted NORMAL ECG PREVIOUS TRACING : 11/01/2016 22.27 DOCTOR: Ventura Julian Interpretating Date/Time 11/19/2016 16:09:58
[2016-11-20] VITALS (11 sets, daily range): BP systolic 125–154; BP diastolic 64–89; PULSE 56–74; RESP 20; TEMP 97.3–98; O2SAT 94–98
[2016-11-20] MEDS: methylPREDNISolone SOD SUCC 125 MG/2 ML VIAL IVP SCH ×5 (00:18→23:35)
[2016-11-20] MEDS: MORPHINE SULFATE 4 MG/ML INJ IV PRN ×4 (00:19→21:56)
[2016-11-20] MEDS: RESP: ALBUTEROL 2.5 MG/IPRATROPIUM 0.5 MG NEB (SCH) INH ×3 (03:13→16:50)
[2016-11-20 04:39] LABS: BICARBONATE 31.3 MEQ/L (21.0-32.0); POTASSIUM 4.7 MEQ/L (3.5-5.1)
[2016-11-20] MEDS: SODIUM CHLOR 0.9% 1000 ML INJ 1,000 ML IV SCH ×3 (05:45→16:31)
[2016-11-20] MEDS: LEVOTHYROXINE SODIUM 100 MCG TAB PO SCH (06:20)
[2016-11-20] MEDS: ACETAMINOPHEN/HYDROcodone 325 MG/7.5 MG TAB PO PRN ×4 (06:23→23:36)
[2016-11-20] MEDS: INSULIN ASPART SUPPLEMENTAL SCALE SQ SCH ×4 (06:45→21:44)
--- NOTE | 2016-11-20 07:58 | HHI.PR ---
Subjective Remarks Follow up for COPD exacerbation with hypoxia. RN reports patient slightly more drowsy today. The patient is awake, alert, oriented x4. She reports continued shortness of breath and wheezing, not much improved compared to yesterday. No fevers or chills. Still with nonproductive cough. Objective Vitals Vital Signs Date Time Temp Pulse Resp B/P Pulse Ox O2 Delivery O2 Flow Rate FiO2 11/20/16 07:39 97.5 56 20 140/75 95 11/20/16 07:34 63 11/20/16 03:36 98.0 67 20 125/64 98 11/20/16 03:16 98 Venturi Mask 6.00 50 11/20/16 00:44 18 11/20/16 00:27 64 11/19/16 23:19 18 11/19/16 22:30 Venturi Mask 5.00 50 11/19/16 19:31 97.6 67 20 124/81 97 11/19/16 16:11 97.4 67 22 120/63 95 11/19/16 15:47 Venturi Mask 5.00 11/19/16 11:22 98.0 76 20 114/58 97 11/19/16 11:15 97.8 71 20 132/77 97 11/19/16 11:03 82 11/19/16 10:55 97 Venturi Mask 6.00 50 11/19/16 07:58 98.0 61 20 120/73 97 Result Diagram: 11/18/16212911/20/16 0407 Imaging Last Impressions Chest X-Ray 11/18/162116 Signed Impressions: Service Date/Time: Friday, November 18, 2016 21:37 - CONCLUSION: Elevated diaphragm with mild gaseous distention of bowel in the left upper quadrant. Compensated cardiomegaly in the chest Jasbir Shepherd MD Objective Remarks GENERAL: Well-nourished, well-developed obese middle aged female patient in [facility]. SKIN: Warm and dry. No rash. Face slightly flushed, improved compared to yesterday. HEENT: Normocephalic. Atraumatic. Pupils equal and round. No scleral icterus. No injection or drainage. Mucous membranes pink and moist. NECK: Supple. Trachea midline. CARDIOVASCULAR: Regular rate and rhythm. S1, S2 noted. No murmur appreciated. RESPIRATORY: No accessory muscle use. Decreased breath sounds but no wheezing, clear to auscultation. Breath sounds equal bilaterally. GASTROINTESTINAL: Abdomen soft, non-tender, nondistended. Normoactive bowel sounds x4. MUSCULOSKELETAL: No obvious deformities. Extremities without clubbing, cyanosis , or edema. NEUROLOGICAL: Awake and alert. No obvious cranial nerve deficits. Motor grossly within normal limits. Normal speech. PSYCHIATRIC: Appropriate mood and affect; insight and judgment normal. Medications and IVs Current Medications Medications (Trade) Dose Ordered Sig/Sonja Route Start Time Stop Time Status Last Admin (SoluMEDROL INJ) 60 mg Q6HR IVP 11/19/16 00:00 11/20/16 06:20 (D50w (Vial) Inj) 25 ml UNSCH PRN IV PUSH 11/18/16 23:30 (Glucagon Inj) 1 mg UNSCH PRN OTHER 11/18/16 23:30 (Nitrostat Sl) 0.4 mg Q5M PRN SL 11/18/16 23:30 (Folate) 1 mg DAILY PO 11/19/16 09:00 11/24/16 08:59 11/19/16 08:43 (Vitamin B1) 100 mg DAILY PO 11/19/16 09:00 11/19/16 08:45 (Theragran M Tab) 1 tab DAILY PO 11/19/16 09:00 11/24/16 08:59 11/19/16 08:43 (Romazicon Inj) 0.2 mg Q1M PRN IV PUSH 11/18/16 23:30 (Ativan) 1 mg Q4H PRN PO 11/18/16 23:30 (Ativan Inj) 1 mg Q4H PRN IV PUSH 11/18/16 23:30 (Ativan) 2 mg Q2H PRN PO 11/18/16 23:30 (Ativan Inj) 2 mg Q2H PRN IV PUSH 11/18/16 23:30 (Ativan Inj) 2 mg Q1H PRN IV PUSH 11/18/16 23:30 (Ativan Inj) 2 mg Q15M PRN IV PUSH 11/18/16 23:30 (Haldol Inj) 2 mg Q15M PRN IM 11/18/16 23:30 (Symbicort 160-4.5 Inh) 1 puff Q12HR INH 11/19/16 09:00 11/19/16 21:47 (Synthroid) 100 mcg DAILY@0600 PO 11/19/16 06:00 11/20/16 06:20 Patient Own Medication PT OWN MED: Aerosol Solution, Inhalati... DAILY INH 11/19/16 09:00 Hold (NS Flush) 2 ml UNSCH PRN IV FLUSH 11/18/16 23:30 (NS Flush) 2 ml BID IV FLUSH 11/19/16 09:00 (Tylenol) 650 mg Q4H PRN PO 11/18/16 23:30 (Zofran Inj) 4 mg Q6H PRN IVP 11/18/16 23:30 11/19/16 09:19 (Colace) 100 mg Q12HR PO 11/19/16 09:00 11/19/16 21:49 (Senokot) 17.2 mg Q12H PRN PO 11/18/16 23:30 (Heparin Inj) 5,000 units Q12HR SQ 11/19/16 09:00 11/19/16 21:49 (Tylenol) 650 mg Q6H PRN PO 11/18/16 23:30 ([place] 5-325 Mg) 1 tab Q4H PRN PO 11/18/16 23:30 ([place] 7.5-325 Mg) 1 tab Q4H PRN PO 11/18/16 23:30 11/20/16 06:23 (Morphine Inj) 1 mg Q3H PRN IV 11/18/16 23:30 11/20/16 00:19 Naloxone HCl 0.4 mg 0.4 mg UNSCH PRN IV 11/18/16 23:30 (NS 1000 ml Inj) 1,000 ml @ 100 mls/hr Q10H IV 11/18/16 23:45 11/20/16 06:20 Urinary Catheter: No Vascular Central Line Catheter: No A/P Problem List: (1) COPD exacerbation ICD Code: J44.1 Status: Acute Assessment and Plan 46-year-old female with a history of peripheral neuropathy, DM, CHF, HLD, HTN, gastritis, hypothyroidism, COPD, KATIE and recent admission 11/02/16-11/15/16 for acute hypercarbic respiratory failure requiring intubation, supposedly discharged with oxygen but was unable to obtain. Now 2 days worsening DORMAN, wheezing, transient nonexertional sharp retrosternal pain 8/10, chills and nonproductive cough. Denies fever. Acute Respiratory Failure secondary to COPD Exacerbation with hypoxia: Failed Outpatient. O2 sat 88% upon arrival. Recent admission for acute hypercarbic respiratory failure requiring intubation. Continue Duonebs q6h sonja, albuterol as needed, oxygen to keep saturation at least 92%, IV Solu-Medrol 60mg q6h, d/c IV Levaquin as patient had reaction with facial flushing. Case management consult to assist with home oxygen and nebulizer. Today patient more drowsy although oriented x4, check ABG. Consult pulmonology. KATIE: strongly suspected. Needs outpatient sleep study and f/up with pulmonology. Noncompliance: Patient counseled on importance of adherence to medical treatment plan. Lactic acidosis: likely secondary to hypoxia. Patient also on metformin which will be discontinued. Given IV hydration. Lactic acid trended 4.4 --> 3.9 --> 2.8. Blood cultures with NGTD. Nausea and vomiting: with inhaler use. Denies abdominal pain. Will monitor. No further episodes overnight. Alcohol abuse: Counseled. Thiamine/MV/folate. CIWA protocol. Bilateral lower extremity dermatitis: monitor Chronic medical conditions of peripheral neuropathy, diabetes mellitus, congestive heart failure, hyperlipidemia, gastritis, hypertension, hypothyroidism and suspected KATIE. Continue outpatient medications as appropriate, monitor fingerstick sugars sliding scale coverage and outpatient follow-up for sleep studies. BiPAP as needed. DVT prophylaxis with SCD and heparin Written by Carrol Dumont, acting as scribe for Dr. Peraza on 11/20/16 at 08:48 All or portions of this note were transcribed by scribEmiliano CALDERON. I, Dr. Zoie Peraza personally performed the history, physical exam, and medical decision making; and confirmed the accuracy of the information in the transcribed note. Authenticated by Dr. Zoie Peraza on 11/20/16 at 08:48 Carrol Dumont PA-C Nov 20, 2016 07:58 Zoie Peraza MD Nov 20, 2016 14:39
[2016-11-20] MEDS: SODIUM CHLORIDE 0.9% FLUSH 10 ML FLUSH IV FLUSH SCH ×2 (09:00→20:41)
[2016-11-20] MEDS: BENZONATATE 100 MG CAP PO SCH ×3 (09:00→18:08)
[2016-11-20] MEDS ORDERED: guaiFENesin/DEXTROMETHORPHAN 200 MG/20 MG/10 ML CUP PO PRN (09:00)
[2016-11-20] MEDS: MULTIVITAMINS/MINERALS THERAPEUTIC TAB PO SCH (09:20)
[2016-11-20] MEDS: THIAMINE HCL 100 MG TAB PO SCH (09:21)
[2016-11-20] MEDS: FOLIC ACID 1 MG TAB PO SCH (09:21)
[2016-11-20] MEDS: DOCUSATE SODIUM 100 MG CAP PO SCH ×2 (09:21→20:40)
[2016-11-20] MEDS: HEPARIN SODIUM - SQ 10,000 UNITS/ML VIAL SQ SCH ×2 (09:24→20:41)
[2016-11-20] MEDS: BUDESONIDE-FORMOTEROL 160/4.5 MCG INHALER INH SCH ×2 (09:28→20:41)
[2016-11-20 14:33] LABS: HEMOGLOBIN A1a 1.5 %; HEMOGLOBIN A1b 2.4 %; HEMOGLOBIN Ao 80.8 %; HEMOGLOBIN LA1C 2.9 %; HEMOGLOBIN P3 4.6 %
[2016-11-20 17:53] LABS: BLOOD GAS BASE EXCESS 4.2 mmol/L (-2-2); BLOOD GAS HCO3 31 mmol/L (22-26); BLOOD GAS METHEMOGLOBIN 0.9 % (0-2); BLOOD GAS O2 HGB SATURATION 96 % (90-100); BLOOD GAS OXYGEN CONTENT 19.9 Vol % (12.0-20.0); BLOOD GAS PCO2 67 mmHg (38-42); BLOOD GAS PO2 119 mmHg (61-120); BLOOD GAS TOTAL HGB 14.6 G/DL (12.0-16.0); TEMP CORR TO 98.6
[2016-11-20 17:54] LABS: DRAW SITE RT RADIAL; LITER FLOW 3 L/M; NUMBER OF ARTERIAL PUNCTURES 1; OXYGEN DEVICE NASAL CANNULA; STAT YES; ULNAR PULSE PRESENT
[2016-11-20 17:55] LABS: CRITICAL VALUE YES
--- NOTE | 2016-11-20 19:28 | MB ---
cc: JING PIERRE DATE OF CONSULTATION: 11/20/2016. REASON FOR CONSULTATION: Respiratory failure. Sleep apnea. HISTORY OF PRESENT ILLNESS: This is a 46-year-old extremely obese white female who has been in the hospital this past month who was discharged home with home oxygen to 2.5 liters. The patient was also due to have a sleep study as an outpatient but apparently this has not happened as of yet. The patient states that she got extremely short of breath over the past 24 hours and she could not get any home oxygen and thus she came to the hospital with increasing dyspnea and wheezing, chest pains and cough. She denied fevers or chills and she has neuropathy of her extremities and chronic pain and nausea. She was given IV fluids, oxygen via nasal cannula and subsequently admitted. The patient in the past has been treated for respiratory failure and hypercapnia. PAST MEDICAL HISTORY: Her past history includes: 1. Obstructive sleep apnea, possible. 2. COPD. 3. Peripheral neuropathy. 4. History of diabetes mellitus type 2. 5. History of congestive heart failure. 6. History of hypertension. 7. History of hyperlipidemia. PAST SURGICAL HISTORY: 1. G-tube placement. 2. Tracheostomy. 3. History for eye surgery. ALLERGIES: 1. PENICILLIN. 2. CLINDAMYCIN. 3. DOXYCYCLINE. FAMILY HISTORY: Diabetes. HABITS: The patient smoked half to one pack for twenty-five years and has quit. Drinks alcohol moderately. REVIEW OF SYSTEMS: The patient is overweight. She is unable to ambulate much. She has epigastric distress and reflux. She has urinary frequency and chronic back pain and leg pain. She had some skin rash. She also has depression and anxiety and dizzy attacks. The other system review is as in the present complaint. PHYSICAL EXAMINATION: GENERAL: This is a moderately obese middle-aged lady who is dyspneic. Face was flushed. VITAL SIGNS: Blood pressure 130/70, pulse is 65, respirations 16, temperature 98.2. HEAD, EYES, EARS, NOSE, THROAT: Head normocephalic. Pupils are reactive and equal. Tongue is moist. Throat is dry. Ears have no inflammation. NECK: No bruits. No thyroid enlargement or lymphadenopathy. CHEST: Distant breath sounds with wheezes throughout both lung hayward. HEART: Heart sounds are regular S1-S2. No murmur. No S3. ABDOMEN: Abdomen is obese, protuberant without masses. No organomegaly or tenderness. Bowel sounds are active. EXTREMITIES: No edema. There are keratotic skin lesions on the extremities. No calf tenderness. NEUROLOGIC: Reflexes are 1+ with no gross motor deficits. The patient is alert and oriented. IMPRESSION: 1. COPD with chronic bronchitis and pulmonary insufficiency. 2. Possible obstructive sleep apnea syndrome. 3. Chronic dermatitis of the lower extremities. 4. Exogenous obesity. 5. Hypertension. PLAN: 1. The patient has been placed on oxygen at 2.5 liters. 2. We will also place her on BiPAP at night for possible sleep apnea. 3. She will be continued on the present medications including Symbicort 160 / 4.5 two puffs twice a day. 4. She will be placed on Solu-Medrol 40 milligrams IV q. 6 hours. 5. The patient will need home oxygen arranged as well as a sleep study arranged as an outpatient. I will discuss the case with you Dr. Longoria. Thank you for this consultation. MD NURIA Melo/SANTY /6:48 PM /7:20 PM
[2016-11-20] MEDS: RESP: ALBUTEROL 2.5 MG/IPRATROPIUM 0.5 MG NEB (SCH) NEB (20:01)
[2016-11-21] VITALS (26 sets, daily range): BP systolic 144–184; BP diastolic 80–101; PULSE 50–66; RESP 18–22; TEMP 97.7–98.6; O2SAT 64–97
[2016-11-21] MEDS: SODIUM CHLOR 0.9% 1000 ML INJ 1,000 ML IV SCH (01:45)
[2016-11-21] MEDS: RESP: ALBUTEROL 2.5 MG/IPRATROPIUM 0.5 MG NEB (SCH) INH ×4 (03:07→22:00)
[2016-11-21] MEDS: methylPREDNISolone SOD SUCC 125 MG/2 ML VIAL IVP SCH ×3 (04:53→18:14)
[2016-11-21] MEDS: LEVOTHYROXINE SODIUM 100 MCG TAB PO SCH (04:53)
[2016-11-21] MEDS: ACETAMINOPHEN/HYDROcodone 325 MG/7.5 MG TAB PO PRN ×3 (04:53→21:41)
[2016-11-21] MEDS: INSULIN ASPART SUPPLEMENTAL SCALE SQ SCH ×4 (06:24→20:12)
[2016-11-21 06:45] LABS: BLOOD GAS BASE EXCESS 4.6 mmol/L (-2-2); BLOOD GAS CARBOXYHEMOGLOBIN 1.4 % (0-4); BLOOD GAS HCO3 31 mmol/L (22-26); BLOOD GAS METHEMOGLOBIN 1.2 % (0-2); BLOOD GAS O2 HGB SATURATION 88 % (90-100); BLOOD GAS OXYGEN CONTENT 14.8 Vol % (12.0-20.0); BLOOD GAS PCO2 68 mmHg (38-42); BLOOD GAS PO2 63 mmHg (61-120); CRITICAL VALUE YES; OXYGEN DEVICE NASAL CANNULA; TEMP CORR TO 98.6
[2016-11-21 06:46] LABS: DRAW SITE RT RADIAL; FIO2 28 %; LITER FLOW 2 L/M; NUMBER OF ARTERIAL PUNCTURES 1; STAT NO; ULNAR PULSE PRESENT
--- NOTE | 2016-11-21 07:34 | HHI.PR ---
Subjective Remarks On BiPAP overnight. Will repeat ABG. Patient with sob. Says she feels tored. Says she is wheezing. +Cough, no sputum. No chest pain. No n/v/d/c. Objective Vitals Vital Signs Date Time Temp Pulse Resp B/P Pulse Ox O2 Delivery O2 Flow Rate FiO2 11/21/16 07:05 93 30 11/21/16 04:15 95 30 11/21/16 04:00 55 11/21/16 04:00 98.1 55 18 153/80 95 11/21/16 01:09 94 30 11/21/16 00:00 66 11/21/16 00:00 98.4 66 18 149/84 94 11/21/16 00:00 Bi-Pap 11/20/16 23:40 94 30 11/20/16 20:03 94 Nasal Cannula 3.00 11/20/16 20:00 Nasal Cannula 2.50 11/20/16 20:00 98.0 69 20 154/89 97 11/20/16 20:00 69 11/20/16 15:47 97.3 66 20 126/74 95 11/20/16 11:59 97.7 74 20 126/65 96 11/20/16 10:13 97 Nasal Cannula 4.00 11/20/16 08:10 95 Venturi Mask 50 11/20/16 07:58 12 11/20/16 07:39 97.5 56 20 140/75 95 11/20/16 07:34 63 I/O 11/20/16 11/20/16 11/20/16 11/21/16 11/21/16 11/21/16 06:59 14:59 22:59 06:59 14:59 22:59 Intake Total 480 ml Balance 480 ml Intake Oral 480 ml # Voids 1 2 # Bowel Movements 0 Result Diagram: 11/18/16212911/20/16406 Imaging Last Impressions Chest X-Ray 11/18/162116 Signed Impressions: Service Date/Time: Friday, November 18, 2016 21:37 - CONCLUSION: Elevated diaphragm with mild gaseous distention of bowel in the left upper quadrant. Compensated cardiomegaly in the chest Jasbir Shepherd MD Objective Remarks GENERAL: Well-nourished, well-developed obese middle aged female patient in [facility]. SKIN: Warm and dry. No rash. Face slightly flushed, improved compared to yesterday. HEENT: Normocephalic. Atraumatic. Pupils equal and round. No scleral icterus. No injection or drainage. Mucous membranes pink and moist. NECK: Supple. Trachea midline. CARDIOVASCULAR: Regular rate and rhythm. S1, S2 noted. No murmur appreciated. RESPIRATORY: No accessory muscle use. Decreased breath sounds but no wheezing, clear to auscultation. Breath sounds equal bilaterally. GASTROINTESTINAL: Abdomen soft, non-tender, nondistended. Normoactive bowel sounds x4. MUSCULOSKELETAL: No obvious deformities. Extremities without clubbing, cyanosis , or edema. NEUROLOGICAL: Awake and alert. No obvious cranial nerve deficits. Motor grossly within normal limits. Normal speech. PSYCHIATRIC: Appropriate mood and affect; insight and judgment normal. A/P Problem List: (1) COPD exacerbation ICD Code: J44.1 Status: Acute Assessment and Plan 46-year-old female with a history of peripheral neuropathy, DM, CHF, HLD, HTN, gastritis, hypothyroidism, COPD, KATIE and recent admission 11/02/16-11/15/16 for acute hypercarbic respiratory failure requiring intubation, supposedly discharged with oxygen but was unable to obtain. Now 2 days worsening DORMAN, wheezing, transient nonexertional sharp retrosternal pain 8/10, chills and nonproductive cough. Denies fever. Acute Respiratory Failure secondary to COPD Exacerbation with hypoxia: Failed Outpatient. O2 sat 88% upon arrival. Recent admission for acute hypercarbic respiratory failure requiring intubation. Continue Duonebs q6h alem, albuterol as needed, oxygen to keep saturation at least 92%, IV Solu-Medrol 60mg q6h, d/c IV Levaquin as patient had reaction with facial flushing. Case management consult to assist with home oxygen and nebulizer. Patient is drowsy although oriented x4. Repeat ABG 11/21 reviewed , place patient on BiPAP, wean off as tolerated so she can eat. Pulm following appreciate recommendations Consult pulmonology. KATIE: strongly suspected. Needs outpatient sleep study and f/up with pulmonology. Noncompliance: Patient counseled on importance of adherence to medical treatment plan. Lactic acidosis: likely secondary to hypoxia. Patient also on metformin which will be discontinued. Given IV hydration. Lactic acid trended 4.4 --> 3.9 --> 2.8. Blood cultures with NGTD. Nausea and vomiting: with inhaler use. Denies abdominal pain. Will monitor. No further episodes overnight. Alcohol abuse: Counseled. Thiamine/MV/folate. [facility] protocol. Bilateral lower extremity dermatitis: monitor Chronic medical conditions of peripheral neuropathy, diabetes mellitus, congestive heart failure, hyperlipidemia, gastritis, hypertension, hypothyroidism and suspected KATIE. Continue outpatient medications as appropriate, monitor fingerstick sugars sliding scale coverage and outpatient follow-up for sleep studies. BiPAP as needed. DVT prophylaxis with SCD and heparin Discussed with the patient, nurse Zoie Peraza MD Nov 21, 2016 07:34
[2016-11-21] MEDS: RESP: ALBUTEROL 2.5 MG/IPRATROPIUM 0.5 MG NEB (SCH) NEB ×4 (07:36→22:27)
[2016-11-21] MEDS: BUDESONIDE-FORMOTEROL 160/4.5 MCG INHALER INH SCH ×2 (08:32→20:15)
[2016-11-21] MEDS: MORPHINE SULFATE 4 MG/ML INJ IV PRN ×4 (08:33→20:04)
[2016-11-21] MEDS: DOCUSATE SODIUM 100 MG CAP PO SCH ×2 (08:33→20:14)
[2016-11-21] MEDS: HEPARIN SODIUM - SQ 10,000 UNITS/ML VIAL SQ SCH ×2 (08:33→20:14)
[2016-11-21] MEDS: FOLIC ACID 1 MG TAB PO SCH (08:33)
[2016-11-21] MEDS: THIAMINE HCL 100 MG TAB PO SCH (08:33)
[2016-11-21] MEDS: BENZONATATE 100 MG CAP PO SCH ×3 (08:33→18:14)
[2016-11-21] MEDS: MULTIVITAMINS/MINERALS THERAPEUTIC TAB PO SCH (08:33)
[2016-11-21] MEDS: SODIUM CHLORIDE 0.9% FLUSH 10 ML FLUSH IV FLUSH SCH ×2 (08:34→20:14)
--- NOTE | 2016-11-21 14:16 | EKG ---
Date Performed: 11/21/2016 Time Performed: 08:13:38 PTAGE: 46 years EKG: Sinus bradycardia Normal ECG except for rate Compared to prior tracing no significant hook e PREVIOUS TRACING DOCTOR: Bam Lyles Interpretating Date/Time 11/21/2016 14:14:20
[2016-11-21 16:29] LABS: BLOOD GAS BASE EXCESS 2.7 mmol/L (-2-2); BLOOD GAS CARBOXYHEMOGLOBIN 1.3 % (0-4); BLOOD GAS HCO3 28 mmol/L (22-26); BLOOD GAS METHEMOGLOBIN 1.5 % (0-2); BLOOD GAS O2 HGB SATURATION 95 % (90-100); BLOOD GAS PCO2 58 mmHg (38-42); BLOOD GAS PO2 106 mmHg (61-120); BLOOD GAS TOTAL HGB 12.6 G/DL (12.0-16.0); CRITICAL VALUE YES; TEMP CORR TO 98.6
[2016-11-21 16:30] LABS: DRAW SITE LT RADIAL; LITER FLOW 3 L/M; NUMBER OF ARTERIAL PUNCTURES 1; OXYGEN DEVICE NASAL CANNULA; STAT NO; ULNAR PULSE PRESENT
--- NOTE | 2016-11-21 18:48 | HHI.PR ---
Subjective Remarks Feels better. On O2 3L. Used Bipap last PM. Objective Vital Signs Date Time Temp Pulse Resp B/P Pulse Ox O2 Delivery O2 Flow Rate FiO2 11/21/16 18:00 59 11/21/16 17:00 57 11/21/16 16:00 60 11/21/16 15:59 95 Nasal Cannula 3.00 11/21/16 15:34 98.6 64 18 64 11/21/16 15:00 63 11/21/16 13:00 58 11/21/16 12:00 97.7 63 18 144/98 95 11/21/16 12:00 64 11/21/16 11:00 65 11/21/16 10:45 94 Nasal Cannula 3.00 11/21/16 10:00 58 11/21/16 09:00 50 11/21/16 08:00 97 Bi-Pap 30 11/21/16 08:00 97.7 52 22 162/94 97 11/21/16 08:00 50 11/21/16 07:37 97 BiPAP 30 11/21/16 07:05 93 30 11/21/16 07:00 51 11/21/16 04:15 95 30 11/21/16 04:00 55 11/21/16 04:00 98.1 55 18 153/80 95 11/21/16 01:09 94 30 11/21/16 00:00 66 11/21/16 00:00 98.4 66 18 149/84 94 11/21/16 00:00 Bi-Pap 11/20/16 23:40 94 30 11/20/16 20:03 94 Nasal Cannula 3.00 11/20/16 20:00 Nasal Cannula 2.50 11/20/16 20:00 98.0 69 20 154/89 97 11/20/16 20:00 69 I/O 11/20/16 11/20/16 11/20/16 11/21/16 11/21/16 11/21/16 07:00 15:00 23:00 07:00 15:00 23:00 Intake Total 480 ml 720 ml Output Total 800 ml Balance 480 ml -80 ml Intake Oral 480 ml 720 ml Output Urine Total 800 ml # Voids 1 2 # Bowel Movements 0 Result Diagram: 11/18/160 11/20/16 0407 Objective Remarks GENERAL: This is a moderately obese middle-aged lady who is not dyspneic. HEAD, EYES, EARS, NOSE, THROAT: Head normocephalic. Pupils are reactive and equal. Tongue is moist. Throat is dry. Ears have no inflammation. NECK: No bruits. No thyroid enlargement or lymphadenopathy. CHEST: Distant breath sounds with wheezes throughout both lung hayward. HEART: Heart sounds are regular S1-S2. No murmur. No S3. ABDOMEN: Abdomen is obese, protuberant without masses. No organomegaly or tenderness. Bowel sounds are active. EXTREMITIES: 1 + edema. There are keratotic skin lesions on the extremities. No calf tenderness. NEUROLOGIC: Reflexes are 1+ with no gross motor deficits. The patient is alert and oriented. Assessment and Plan Assessment and Plan IMPRESSION: 1. COPD with chronic bronchitis and pulmonary insufficiency. 2. Possible obstructive sleep apnea syndrome. 3. Chronic dermatitis of the lower extremities. 4. Exogenous obesity. 5. Hypertension. Plan : 1. Cont O2 at 3 L. 2. Bipap 12/5 CM 28 % FIO2 at HS. 3. Nebs qid , duoneb. 4. Symbicort , 2 puffs bid 5. Arrange rehab and Home CPAP with O2 2 L Celia Brink MD Nov 21, 2016 18:48
[2016-11-22] VITALS (19 sets, daily range): BP systolic 127–182; BP diastolic 65–104; PULSE 51–106; RESP 11–22; TEMP 96.7–98.8; O2SAT 92–98
[2016-11-22] MEDS: methylPREDNISolone SOD SUCC 125 MG/2 ML VIAL IVP SCH ×5 (00:04→23:47)
[2016-11-22] MEDS: RESP: ALBUTEROL 2.5 MG/IPRATROPIUM 0.5 MG NEB (SCH) INH ×3 (04:24→11:34)
[2016-11-22] MEDS: LEVOTHYROXINE SODIUM 100 MCG TAB PO SCH (05:58)
[2016-11-22 06:25] LABS: BICARBONATE 33.1 MEQ/L (21.0-32.0); POTASSIUM 4.2 MEQ/L (3.5-5.1)
[2016-11-22] MEDS: INSULIN ASPART SUPPLEMENTAL SCALE SQ SCH ×4 (06:39→22:05)
[2016-11-22 06:42] LABS: BLOOD GAS CARBOXYHEMOGLOBIN 1.4 % (0-4); BLOOD GAS HCO3 32 mmol/L (22-26); BLOOD GAS METHEMOGLOBIN 1.2 % (0-2); BLOOD GAS O2 HGB SATURATION 96 % (90-100); BLOOD GAS OXYGEN CONTENT 18.4 Vol % (12.0-20.0); BLOOD GAS PCO2 58 mmHg (38-42); BLOOD GAS PO2 107 mmHg (61-120); BLOOD GAS TOTAL HGB 13.6 G/DL (12.0-16.0); TEMP CORR TO 98.6
[2016-11-22 06:43] LABS: CRITICAL VALUE YES; LITER FLOW 3 L/M; OXYGEN DEVICE NASAL CANNULA
[2016-11-22 06:44] LABS: DRAW SITE RT RADIAL; NUMBER OF ARTERIAL PUNCTURES 1; STAT NO; ULNAR PULSE PRESENT
[2016-11-22 06:47] LABS: AUTOMATED NEUTROPHIL # 8.8 TH/MM3 (1.8-7.7); BASOPHIL % 0.1 % (0.0-2.0); HEMATOCRIT 41.8 % (35.0-46.0); HEMO FLAGS DIFF FINAL; LYMPHOCYTE # 0.5 TH/MM3 (1.0-4.8); MEAN CELL VOLUME 91.2 FL (80.0-100.0); MEAN CORPUSCULAR HEMOGLOBIN 30.8 PG (27.0-34.0); MEAN CORPUSCULAR HGB CONC 33.8 % (32.0-36.0); MONO % 0.9 % (0.0-8.0); PLATELET COUNT 158 TH/MM3 (150-450); RED BLOOD COUNT 4.59 MIL/MM3 (4.00-5.30); RED CELL DISTRIBUTION WIDTH 14.1 % (11.6-17.2); WHITE BLOOD COUNT 9.3 TH/MM3 (4.0-11.0)
--- NOTE | 2016-11-22 07:15 | HHI.PR ---
Subjective Remarks Patient waking up, on bipap overnight. ABG improved it seems at baseline. Patient was mostly on room during the day yesterday. She is also complaining of pain in her chest, legs, will taper off narcotics as per nurse patient is asking for meds. Feels sob. No n/v/d/c. No diaphoresis or lightheadedness. Objective Vitals Vital Signs Date Time Temp Pulse Resp B/P Pulse Ox O2 Delivery O2 Flow Rate FiO2 11/22/16 04:00 97.0 52 11 182/104 97 11/22/16 04:00 51 11/22/16 00:00 97.7 58 20 156/92 96 11/22/16 00:00 67 11/21/16 23:56 96 30 11/21/16 22:28 97 Nasal Cannula 3.00 11/21/16 20:00 Nasal Cannula 3.00 11/21/16 20:00 64 11/21/16 20:00 97.8 52 20 184/101 97 11/21/16 18:00 59 11/21/16 17:00 57 11/21/16 16:00 60 11/21/16 15:59 95 Nasal Cannula 3.00 11/21/16 15:34 98.6 64 18 64 11/21/16 15:00 63 11/21/16 13:00 58 11/21/16 12:00 97.7 63 18 144/98 95 11/21/16 12:00 64 11/21/16 11:00 65 11/21/16 10:45 94 Nasal Cannula 3.00 11/21/16 10:00 58 11/21/16 09:00 50 11/21/16 08:00 97 Bi-Pap 30 11/21/16 08:00 97.7 52 22 162/94 97 11/21/16 08:00 50 11/21/16 07:37 97 BiPAP 30 I/O 11/21/16 11/21/16 11/21/16 11/22/16 11/22/16 11/22/16 07:00 15:00 23:00 07:00 15:00 23:00 Intake Total 480 ml 720 ml 360 ml Output Total 800 ml 1600 ml Balance 480 ml -80 ml -1240 ml Intake Oral 480 ml 720 ml 360 ml Output Urine Total 800 ml 1600 ml # Voids 2 # Bowel Movements 0 Result Diagram: 11/22/16 0450 11/22/16 0450 Imaging Last Impressions Chest X-Ray 11/18/162116 Signed Impressions: Service Date/Time: Friday, November 18, 2016 21:37 - CONCLUSION: Elevated diaphragm with mild gaseous distention of bowel in the left upper quadrant. Compensated cardiomegaly in the chest Jasbir Shepherd MD Objective Remarks GENERAL: Well-nourished, well-developed obese middle aged female patient in [place]. SKIN: Warm and dry. No rash. Face slightly flushed, improved compared to yesterday. HEENT: Normocephalic. Atraumatic. Pupils equal and round. No scleral icterus. No injection or drainage. Mucous membranes pink and moist. NECK: Supple. Trachea midline. CARDIOVASCULAR: Regular rate and rhythm. S1, S2 noted. No murmur appreciated. RESPIRATORY: No accessory muscle use. Decreased breath sounds but no wheezing, clear to auscultation. Breath sounds equal bilaterally. GASTROINTESTINAL: Abdomen soft, non-tender, nondistended. Normoactive bowel sounds x4. MUSCULOSKELETAL: No obvious deformities. Extremities without clubbing, cyanosis , or edema. NEUROLOGICAL: Awake and alert. No obvious cranial nerve deficits. Motor grossly within normal limits. Normal speech. PSYCHIATRIC: Appropriate mood and affect; insight and judgment normal. A/P Problem List: (1) COPD exacerbation ICD Code: J44.1 Status: Acute Assessment and Plan 46-year-old female with a history of peripheral neuropathy, DM, CHF, HLD, HTN, gastritis, hypothyroidism, COPD, KATIE and recent admission 11/02/16-11/15/16 for acute hypercarbic respiratory failure requiring intubation, supposedly discharged with oxygen but was unable to obtain. Now 2 days worsening DORMAN, wheezing, transient nonexertional sharp retrosternal pain 8/10, chills and nonproductive cough. Denies fever. Acute Respiratory Failure secondary to COPD Exacerbation with hypoxia: Failed Outpatient. O2 sat 88% upon arrival. Recent admission for acute hypercarbic respiratory failure requiring intubation. Continue Duonebs q6h alem, albuterol as needed, oxygen to keep saturation at least 92%, IV Solu-Medrol 60mg q6h, d/c IV Levaquin as patient had reaction with facial flushing. Case management consult to assist with home oxygen and nebulizer. Patient is drowsy although oriented x4. Repeat ABG 11/21 reviewed , place patient on BiPAP, wean off as tolerated so she can eat. ABG 11/22 reviewed seems at baseline. Continue BiPAP overnight, O2 during the day. Will consult PT and OT Patient need sleep study as OP and CPAP at night. Case management consult for DC plan Pulm following appreciate recommendations Consult pulmonology. KATIE: strongly suspected. Needs outpatient sleep study and f/up with pulmonology. Noncompliance: Patient counseled on importance of adherence to medical treatment plan. Lactic acidosis: likely secondary to hypoxia. Patient also on metformin which will be discontinued. Given IV hydration. Lactic acid trended 4.4 --> 3.9 --> 2.8. Blood cultures with NGTD. Nausea and vomiting: with inhaler use. Denies abdominal pain. Will monitor. No further episodes overnight. Alcohol abuse: Counseled. Thiamine/MV/folate. CIWA protocol. Bilateral lower extremity dermatitis: monitor Chronic medical conditions of peripheral neuropathy, diabetes mellitus, congestive heart failure, hyperlipidemia, gastritis, hypertension, hypothyroidism and suspected KATIE. Continue outpatient medications as appropriate, monitor fingerstick sugars sliding scale coverage and outpatient follow-up for sleep studies. BiPAP as needed. DVT prophylaxis with SCD and heparin Discussed with the patient, nurse Transfer to med/surg floor Zoie Peraza MD Nov 22, 2016 07:15
[2016-11-22] MEDS: RESP: ALBUTEROL 2.5 MG/IPRATROPIUM 0.5 MG NEB (SCH) NEB ×4 (07:56→21:36)
[2016-11-22] MEDS: SODIUM CHLORIDE 0.9% FLUSH 10 ML FLUSH IV FLUSH SCH ×2 (09:00→21:00)
[2016-11-22] MEDS: THIAMINE HCL 100 MG TAB PO SCH (09:01)
[2016-11-22] MEDS: FOLIC ACID 1 MG TAB PO SCH (09:01)
[2016-11-22] MEDS: MULTIVITAMINS/MINERALS THERAPEUTIC TAB PO SCH (09:02)
[2016-11-22] MEDS: DOCUSATE SODIUM 100 MG CAP PO SCH ×2 (09:02→21:56)
[2016-11-22] MEDS: BENZONATATE 100 MG CAP PO SCH ×3 (09:02→17:47)
[2016-11-22] MEDS: HEPARIN SODIUM - SQ 10,000 UNITS/ML VIAL SQ SCH ×2 (09:03→21:56)
[2016-11-22] MEDS: BUDESONIDE-FORMOTEROL 160/4.5 MCG INHALER INH SCH ×2 (09:03→22:07)
[2016-11-22] MEDS: amLODIPine BESYLATE 5 MG TAB PO SCH (09:12)
[2016-11-22] MEDS ORDERED: MORPHINE SULFATE 4 MG/ML INJ IV PRN (11:30)
[2016-11-22] MEDS: ACETAMINOPHEN/HYDROcodone 325 MG/5 MG TAB PO PRN ×3 (14:29→22:09)
[2016-11-22] MEDS: ENALAPRILAT 2.5 MG/2 ML VIAL IV PUSH PRN ×2 (17:56→23:47)
--- NOTE | 2016-11-22 22:54 | HHI.PR ---
Subjective Remarks Up in a chair.. On O2 3L. Used Bipap last PM.Needs home CPAP and O2. C/O Leg edema Objective Vital Signs Date Time Temp Pulse Resp B/P Pulse Ox O2 Delivery O2 Flow Rate FiO2 11/22/16 21:36 98 Nasal Cannula 3.00 11/22/16 20:00 96.7 70 19 127/65 96 11/22/16 17:53 97.0 60 22 161/83 97 11/22/16 16:10 97.3 58 20 168/90 97 11/22/16 15:15 92 Nasal Cannula 3.00 11/22/16 12:00 99 Nasal Cannula 2.00 11/22/16 12:00 98.2 65 20 166/92 11/22/16 11:50 66 11/22/16 08:00 98.2 69 20 129/72 11/22/16 08:00 Nasal Cannula 2.00 11/22/16 07:56 97 Nasal Cannula 3.00 11/22/16 07:41 59 11/22/16 06:00 64 11/22/16 05:00 54 11/22/16 04:00 97.0 52 11 182/104 97 11/22/16 04:00 51 11/22/16 03:00 66 11/22/16 02:00 62 11/22/16 01:00 62 11/22/16 00:00 97.7 58 20 156/92 96 11/22/16 00:00 67 11/21/16 23:56 96 30 11/21/16 23:00 66 I/O 11/21/16 11/21/16 11/21/16 11/22/16 11/22/16 11/22/16 07:00 15:00 23:00 07:00 15:00 23:00 Intake Total 480 ml 720 ml 360 ml 240 ml Output Total 800 ml 1600 ml Balance 480 ml -80 ml -1240 ml 240 ml Intake Oral 480 ml 720 ml 360 ml 240 ml Output Urine Total 800 ml 1600 ml # Voids 2 1 # Bowel Movements 0 0 Result Diagram: 11/22/16 0450 11/22/16 0450 Objective Remarks GENERAL: This is a moderately obese middle-aged lady who is not dyspneic. HEAD, EYES, EARS, NOSE, THROAT: Head normocephalic. Pupils are reactive and equal. Tongue is moist. Throat is clear. Ears have no inflammation. NECK: No bruits. No thyroid enlargement or lymphadenopathy. CHEST: Distant breath sounds with wheezes over both lung hayward. HEART: Heart sounds are regular S1-S2. No murmur. No S3. ABDOMEN: Abdomen is obese, protuberant without masses. No organomegaly or tenderness. Bowel sounds are active. EXTREMITIES: 1 + edema. There are keratotic skin lesions on the extremities. No calf tenderness. NEUROLOGIC: Reflexes are 1+ with no gross motor deficits. The patient is alert and oriented. Assessment and Plan Assessment and Plan IMPRESSION: 1. COPD with chronic bronchitis and pulmonary insufficiency. 2. Possible obstructive sleep apnea syndrome. 3. Chronic dermatitis of the lower extremities. 4. Exogenous obesity. 5. Hypertension. Plan : 1. Cont O2 at 3 L. 2. Cont Bipap 12/5 CM 28 % FIO2 at HS. 3. Nebs qid , duoneb. 4. Symbicort 160/4.5 Mcg , 2 puffs bid 5. Arrange rehab and Home CPAP with O2 2 L 6. Cont Pain meds PRN. 7. Thiamine daily. Celia Brink MD Nov 22, 2016 22:54
[2016-11-23] VITALS (12 sets, daily range): BP systolic 149–190; BP diastolic 89–97; PULSE 51–66; RESP 16–20; TEMP 95.8–97.8; O2SAT 93–99
[2016-11-23] MEDS: ACETAMINOPHEN/HYDROcodone 325 MG/5 MG TAB PO PRN ×6 (03:41→22:42)
[2016-11-23 05:40] LABS: BLOOD GAS BASE EXCESS 7.3 mmol/L (-2-2); BLOOD GAS HCO3 32 mmol/L (22-26); BLOOD GAS METHEMOGLOBIN 0.7 % (0-2); BLOOD GAS O2 HGB SATURATION 97 % (90-100); BLOOD GAS OXYGEN CONTENT 18.5 Vol % (12.0-20.0); BLOOD GAS PCO2 49 mmHg (38-42); BLOOD GAS PO2 134 mmHg (61-120); BLOOD GAS TOTAL HGB 13.4 G/DL (12.0-16.0); TEMP CORR TO 98.6
[2016-11-23 05:41] LABS: CRITICAL VALUE NO; DRAW SITE LT RADIAL; FIO2 40 %; NUMBER OF ARTERIAL PUNCTURES 1; OXYGEN DEVICE BIPAP; STAT NO; ULNAR PULSE PRESENT; VENT SETTINGS IPAP17 EPAP10
[2016-11-23] MEDS: LEVOTHYROXINE SODIUM 100 MCG TAB PO SCH (06:43)
[2016-11-23] MEDS: methylPREDNISolone SOD SUCC 125 MG/2 ML VIAL IVP SCH ×3 (06:43→21:46)
[2016-11-23] MEDS: INSULIN ASPART SUPPLEMENTAL SCALE SQ SCH ×4 (06:44→21:00)
--- NOTE | 2016-11-23 07:29 | HHI.PR ---
Subjective Remarks Patient in the chair. Appear in nad. Says she has pain in her legs and chest and is asking for more pain meds. Trops were nega. No nausea, vomiting. No fever or chills. No cough. Had PT yesterday Objective Vitals Vital Signs Date Time Temp Pulse Resp B/P Pulse Ox O2 Delivery O2 Flow Rate FiO2 11/23/16 04:01 98 40 11/23/16 04:00 96.5 60 18 176/89 99 11/23/16 00:13 98 40 11/23/16 00:12 97.0 66 18 149/92 96 11/22/16 23:00 Nasal Cannula 2.00 11/22/16 23:00 74 11/22/16 21:36 98 Nasal Cannula 3.00 11/22/16 20:00 96.7 70 19 127/65 96 11/22/16 17:53 97.0 60 22 161/83 97 11/22/16 16:10 97.3 58 20 168/90 97 11/22/16 15:15 92 Nasal Cannula 3.00 11/22/16 12:00 99 Nasal Cannula 2.00 11/22/16 12:00 98.2 65 20 166/92 11/22/16 11:50 66 11/22/16 08:00 98.2 69 20 129/72 11/22/16 08:00 Nasal Cannula 2.00 11/22/16 07:56 97 Nasal Cannula 3.00 11/22/16 07:41 59 I/O 11/22/16 11/22/16 11/22/16 11/23/16 11/23/16 11/23/16 07:00 15:00 23:00 07:00 15:00 23:00 Intake Total 360 ml 240 ml 120 ml Output Total 1600 ml Balance -1240 ml 240 ml 120 ml Intake Oral 360 ml 240 ml 120 ml Output Urine Total 1600 ml # Voids 1 0 # Bowel Movements 0 0 Result Diagram: 11/22/1644911/22/16449 Imaging Last Impressions Chest X-Ray 11/18/162116 Signed Impressions: Service Date/Time: Friday, November 18, 2016 21:37 - CONCLUSION: Elevated diaphragm with mild gaseous distention of bowel in the left upper quadrant. Compensated cardiomegaly in the chest Jasbir Shepherd MD Objective Remarks GENERAL: Well-nourished, well-developed obese middle aged female patient in [place]. SKIN: Warm and dry. No rash. Face slightly flushed, improved compared to yesterday. HEENT: Normocephalic. Atraumatic. Pupils equal and round. No scleral icterus. No injection or drainage. Mucous membranes pink and moist. NECK: Supple. Trachea midline. CARDIOVASCULAR: Regular rate and rhythm. S1, S2 noted. No murmur appreciated. RESPIRATORY: No accessory muscle use. Decreased breath sounds but no wheezing, clear to auscultation. Breath sounds equal bilaterally. GASTROINTESTINAL: Abdomen soft, non-tender, nondistended. Normoactive bowel sounds x4. MUSCULOSKELETAL: No obvious deformities. Extremities without clubbing, cyanosis , or edema. NEUROLOGICAL: Awake and alert. No obvious cranial nerve deficits. Motor grossly within normal limits. Normal speech. PSYCHIATRIC: Appropriate mood and affect; insight and judgment normal. A/P Problem List: (1) COPD exacerbation ICD Code: J44.1 Status: Acute Assessment and Plan 46-year-old female with a history of peripheral neuropathy, DM, CHF, HLD, HTN, gastritis, hypothyroidism, COPD, KATIE and recent admission 11/02/16-11/15/16 for acute hypercarbic respiratory failure requiring intubation, supposedly discharged with oxygen but was unable to obtain. Now 2 days worsening DORMAN, wheezing, transient nonexertional sharp retrosternal pain 8/10, chills and nonproductive cough. Denies fever. Acute Respiratory Failure secondary to COPD Exacerbation with hypoxia: Failed Outpatient. O2 sat 88% upon arrival. Recent admission for acute hypercarbic respiratory failure requiring intubation. Continue Duonebs q6h alem, albuterol as needed, oxygen to keep saturation at least 92%, IV Solu-Medrol 60mg q6h, d/c IV Levaquin as patient had reaction with facial flushing. Case management consult to assist with home oxygen and nebulizer. Patient is drowsy although oriented x4. Repeat ABG 11/21 reviewed , place patient on BiPAP, wean off as tolerated so she can eat. ABG 11/22 reviewed seems at baseline. Continue BiPAP overnight, O2 during the day. Will consult PT and OT Patient need sleep study as OP and CPAP at night. Case management consult for DC plan Pulm following appreciate recommendations Consult pulmonology. KATIE: strongly suspected. Needs outpatient sleep study and f/up with pulmonology. Noncompliance: Patient counseled on importance of adherence to medical treatment plan. Lactic acidosis: likely secondary to hypoxia. Patient also on metformin which will be discontinued. Given IV hydration. Lactic acid trended 4.4 --> 3.9 --> 2.8. Blood cultures with NGTD. Nausea and vomiting: with inhaler use. Denies abdominal pain. Will monitor. No further episodes overnight. Alcohol abuse: Counseled. Thiamine/MV/folate. CIWA protocol. Bilateral lower extremity dermatitis: monitor Chronic medical conditions of peripheral neuropathy, diabetes mellitus, congestive heart failure, hyperlipidemia, gastritis, hypertension, hypothyroidism and suspected KATIE. Continue outpatient medications as appropriate, monitor fingerstick sugars sliding scale coverage and outpatient follow-up for sleep studies. BiPAP at night. DVT prophylaxis with SCD and heparin Discussed with the patient, nurse Discharge plan: Patient needs O2 at home and CPAP at night. Difficult discharge as patient doesn't have insurance. Pending SSI. Case management is following. Will also have PT working daily Zoie Peraza MD Nov 23, 2016 07:28 Zoie Peraza MD Nov 23, 2016 07:28
[2016-11-23] MEDS: RESP: ALBUTEROL 2.5 MG/IPRATROPIUM 0.5 MG NEB (SCH) NEB ×4 (08:05→19:21)
[2016-11-23] MEDS: BENZONATATE 100 MG CAP PO SCH ×3 (09:34→18:26)
[2016-11-23] MEDS: THIAMINE HCL 100 MG TAB PO SCH (09:34)
[2016-11-23] MEDS: MULTIVITAMINS/MINERALS THERAPEUTIC TAB PO SCH (09:34)
[2016-11-23] MEDS: DOCUSATE SODIUM 100 MG CAP PO SCH ×2 (09:34→21:47)
[2016-11-23] MEDS: amLODIPine BESYLATE 5 MG TAB PO SCH (09:34)
[2016-11-23] MEDS: FOLIC ACID 1 MG TAB PO SCH (09:34)
[2016-11-23] MEDS: SODIUM CHLORIDE 0.9% FLUSH 10 ML FLUSH IV FLUSH SCH ×2 (09:35→21:00)
[2016-11-23] MEDS: HEPARIN SODIUM - SQ 10,000 UNITS/ML VIAL SQ SCH ×2 (09:35→21:45)
[2016-11-23] MEDS: BUDESONIDE-FORMOTEROL 160/4.5 MCG INHALER INH SCH ×2 (09:35→21:47)
[2016-11-23] MEDS: ENALAPRILAT 2.5 MG/2 ML VIAL IV PUSH PRN (12:19)
[2016-11-23] MEDS: IBUPROFEN 600 MG TAB PO PRN ×2 (14:33→23:32)
--- NOTE | 2016-11-23 19:50 | HHI.PR ---
Subjective Remarks Up in a chair.. On O2 2 L. Used Bipap at HS.Needs home CPAP and O2. Objective Vital Signs Date Time Temp Pulse Resp B/P Pulse Ox O2 Delivery O2 Flow Rate FiO2 11/23/16 16:00 96.4 58 20 190/97 93 11/23/16 15:22 18 11/23/16 15:22 18 11/23/16 12:05 95.9 57 18 157/92 96 11/23/16 08:07 95 Nasal Cannula 3.00 11/23/16 08:00 95.8 51 16 159/91 96 11/23/16 07:30 Nasal Cannula 3.00 11/23/16 07:30 53 11/23/16 04:01 98 40 11/23/16 04:00 96.5 60 18 176/89 99 11/23/16 00:13 98 40 11/23/16 00:12 97.0 66 18 149/92 96 11/22/16 23:00 Nasal Cannula 2.00 11/22/16 23:00 74 11/22/16 21:36 98 Nasal Cannula 3.00 11/22/16 20:00 96.7 70 19 127/65 96 I/O 11/22/16 11/22/16 11/22/16 11/23/16 11/23/16 11/23/16 07:00 15:00 23:00 07:00 15:00 23:00 Intake Total 360 ml 240 ml 120 ml 440 ml Output Total 1600 ml Balance -1240 ml 240 ml 120 ml 440 ml Intake Oral 360 ml 240 ml 120 ml 440 ml Output Urine Total 1600 ml # Voids 1 0 2 # Bowel Movements 0 0 0 Result Diagram: 11/22/16 0450 11/22/16 0450 Objective Remarks GENERAL: This is a moderately obese middle-aged lady who is not dyspneic. HEAD, EYES, EARS, NOSE, THROAT: Head normocephalic. Pupils are reactive and equal. Tongue is moist. Throat is clear. Ears have no inflammation. NECK: No bruits. No thyroid enlargement or lymphadenopathy. CHEST: Distant breath sounds with wheezes over both lung hayward. HEART: Heart sounds are regular S1-S2. No murmur. No S3. ABDOMEN: Abdomen is obese, protuberant without masses. No organomegaly or tenderness. Bowel sounds are active. EXTREMITIES: 1 + edema. There are keratotic skin lesions on the extremities. No calf tenderness. NEUROLOGIC: Reflexes are 1+ with no gross motor deficits. The patient is alert and oriented. Assessment and Plan Assessment and Plan IMPRESSION: 1. COPD with chronic bronchitis and pulmonary insufficiency. 2. Possible obstructive sleep apnea syndrome. 3. Chronic dermatitis of the lower extremities. 4. Exogenous obesity. 5. Hypertension. Plan : 1. Cont O2 at 3 L. 2. Cont Bipap 12/5 CM 28 % FIO2 at HS. 3. Nebs qid , duoneb. 4. Symbicort 160/4.5 Mcg , 2 puffs bid 5. Arrange rehab and Home CPAP with O2 2 L 6. Cont Pain meds PRN. 7. 6 min walk test in am Celia Brink MD Nov 23, 2016 19:50
[2016-11-23] MEDS ORDERED: methylPREDNISolone SOD SUCC 125 MG/2 ML VIAL IVP SCH (20:00)
[2016-11-24] VITALS (10 sets, daily range): BP systolic 139–171; BP diastolic 81–101; PULSE 53–72; RESP 18–23; TEMP 95.4–97.6; O2SAT 92–98
[2016-11-24] MEDS: ENALAPRILAT 2.5 MG/2 ML VIAL IV PUSH PRN (00:29)
[2016-11-24] MEDS: ACETAMINOPHEN/HYDROcodone 325 MG/5 MG TAB PO PRN ×5 (03:00→21:45)
[2016-11-24 05:19] LABS: BLOOD GAS BASE EXCESS 6.8 mmol/L (-2-2); BLOOD GAS CARBOXYHEMOGLOBIN 1.4 % (0-4); BLOOD GAS HCO3 31 mmol/L (22-26); BLOOD GAS METHEMOGLOBIN 1.1 % (0-2); BLOOD GAS O2 HGB SATURATION 96 % (90-100); BLOOD GAS OXYGEN CONTENT 19.2 Vol % (12.0-20.0); BLOOD GAS PCO2 50 mmHg (38-42); BLOOD GAS PO2 108 mmHg (61-120); BLOOD GAS TOTAL HGB 14.2 G/DL (12.0-16.0); CRITICAL VALUE NO; DRAW SITE RT RADIAL; LITER FLOW 3 L/M; NUMBER OF ARTERIAL PUNCTURES 1; OXYGEN DEVICE NASAL CANNULA; STAT NO; TEMP CORR TO 98.6; ULNAR PULSE PRESENT
[2016-11-24] MEDS: LEVOTHYROXINE SODIUM 100 MCG TAB PO SCH (06:57)
[2016-11-24] MEDS: INSULIN ASPART SUPPLEMENTAL SCALE SQ SCH ×4 (06:58→20:27)
[2016-11-24] MEDS: RESP: ALBUTEROL 2.5 MG/IPRATROPIUM 0.5 MG NEB (SCH) NEB ×3 (08:31→16:25)
[2016-11-24] MEDS: HEPARIN SODIUM - SQ 10,000 UNITS/ML VIAL SQ SCH ×2 (08:35→20:15)
[2016-11-24] MEDS: BENZONATATE 100 MG CAP PO SCH ×3 (08:35→17:33)
[2016-11-24] MEDS: DOCUSATE SODIUM 100 MG CAP PO SCH ×2 (08:35→21:00)
[2016-11-24] MEDS: THIAMINE HCL 100 MG TAB PO SCH (08:35)
[2016-11-24] MEDS: amLODIPine BESYLATE 5 MG TAB PO SCH (08:35)
[2016-11-24] MEDS: SODIUM CHLORIDE 0.9% FLUSH 10 ML FLUSH IV FLUSH SCH ×2 (08:36→21:00)
[2016-11-24] MEDS: IBUPROFEN 600 MG TAB PO PRN ×2 (08:36→20:16)
[2016-11-24] MEDS: BUDESONIDE-FORMOTEROL 160/4.5 MCG INHALER INH SCH ×2 (08:36→20:12)
[2016-11-24] MEDS: methylPREDNISolone SOD SUCC 125 MG/2 ML VIAL IVP SCH (08:36)
[2016-11-24 09:05] LABS: AUTOMATED NEUTROPHIL # 7.3 TH/MM3 (1.8-7.7); BASOPHIL % 0.3 % (0.0-2.0); HEMATOCRIT 41.6 % (35.0-46.0); HEMO FLAGS DIFF FINAL; LYMPH % 8.3 % (9.0-44.0); LYMPHOCYTE # 0.7 TH/MM3 (1.0-4.8); MEAN CELL VOLUME 90.1 FL (80.0-100.0); MEAN CORPUSCULAR HEMOGLOBIN 29.7 PG (27.0-34.0); MEAN CORPUSCULAR HGB CONC 32.9 % (32.0-36.0); MONO % 3.8 % (0.0-8.0); NEUT % 87.6 % (16.0-70.0); PLATELET COUNT 163 TH/MM3 (150-450); RED BLOOD COUNT 4.62 MIL/MM3 (4.00-5.30); WHITE BLOOD COUNT 8.3 TH/MM3 (4.0-11.0)
[2016-11-24 09:18] LABS: MAGNESIUM 2.5 MG/DL (1.5-2.5)
--- NOTE | 2016-11-24 10:29 | HHI.PR ---
Subjective Remarks Patient in the chair. Denies sob, requiring O2. No n/v/d/c. Pain is controlled by meds. Objective Vitals Vital Signs Date Time Temp Pulse Resp B/P Pulse Ox O2 Delivery O2 Flow Rate FiO2 11/24/16 10:01 2.00 11/24/16 08:32 98 Nasal Cannula 3.00 11/24/16 08:15 95.4 53 20 150/87 94 11/24/16 05:20 Nasal Cannula 3.00 11/24/16 04:58 97.1 63 18 162/82 96 11/24/16 03:10 98 40 11/24/16 00:12 97.6 58 18 171/81 96 11/23/16 23:00 Bi-Pap 11/23/16 22:20 98 40 11/23/16 22:00 Nasal Cannula 3.00 11/23/16 20:43 97.8 65 18 167/89 94 11/23/16 19:21 94 Nasal Cannula 3.00 11/23/16 16:00 96.4 58 20 190/97 93 11/23/16 15:22 18 11/23/16 15:22 18 11/23/16 12:05 95.9 57 18 157/92 96 I/O 11/23/16 11/23/16 11/23/16 11/24/16 11/24/16 11/24/16 07:00 15:00 23:00 07:00 15:00 23:00 Intake Total 120 ml 440 ml Balance 120 ml 440 ml Intake Oral 120 ml 440 ml # Voids 0 2 3 # Bowel Movements 0 0 Result Diagram: 11/24/1646 11/24/1646 Imaging Last Impressions Chest X-Ray 11/18/162116 Signed Impressions: Service Date/Time: Friday, November 18, 2016 21:37 - CONCLUSION: Elevated diaphragm with mild gaseous distention of bowel in the left upper quadrant. Compensated cardiomegaly in the chest Jasbir Shepherd MD Objective Remarks GENERAL: Well-nourished, well-developed obese middle aged female patient in [facility]. SKIN: Warm and dry. No rash. Face slightly flushed, improved compared to yesterday. HEENT: Normocephalic. Atraumatic. Pupils equal and round. No scleral icterus. No injection or drainage. Mucous membranes pink and moist. NECK: Supple. Trachea midline. CARDIOVASCULAR: Regular rate and rhythm. S1, S2 noted. No murmur appreciated. RESPIRATORY: No accessory muscle use. Decreased breath sounds but no wheezing, clear to auscultation. Breath sounds equal bilaterally. GASTROINTESTINAL: Abdomen soft, non-tender, nondistended. Normoactive bowel sounds x4. MUSCULOSKELETAL: No obvious deformities. Extremities without clubbing, cyanosis , or edema. NEUROLOGICAL: Awake and alert. No obvious cranial nerve deficits. Motor grossly within normal limits. Normal speech. PSYCHIATRIC: Appropriate mood and affect; insight and judgment normal. A/P Problem List: (1) COPD exacerbation ICD Code: J44.1 Status: Acute Assessment and Plan 46-year-old female with a history of peripheral neuropathy, DM, CHF, HLD, HTN, gastritis, hypothyroidism, COPD, KATIE and recent admission 11/02/16-11/15/16 for acute hypercarbic respiratory failure requiring intubation, supposedly discharged with oxygen but was unable to obtain. Now 2 days worsening DORMAN, wheezing, transient nonexertional sharp retrosternal pain 8/10, chills and nonproductive cough. Denies fever. Acute Respiratory Failure secondary to COPD Exacerbation with hypoxia: Failed Outpatient. O2 sat 88% upon arrival. Recent admission for acute hypercarbic respiratory failure requiring intubation. Continue Duonebs q6h alem, albuterol as needed, oxygen to keep saturation at least 92%, IV Solu-Medrol 60mg q6h, d/c IV Levaquin as patient had reaction with facial flushing. Case management consult to assist with home oxygen and nebulizer. Patient is drowsy although oriented x4. Repeat ABG 11/21 reviewed , place patient on BiPAP, wean off as tolerated so she can eat. ABG 11/22 reviewed seems at baseline. Continue BiPAP overnight, O2 during the day. Will consult PT and OT Patient need sleep study as OP and CPAP at night. Case management consult for DC plan Pulm following appreciate recommendations Consult pulmonology. KATIE: strongly suspected. Needs outpatient sleep study and f/up with pulmonology. Noncompliance: Patient counseled on importance of adherence to medical treatment plan. Lactic acidosis: likely secondary to hypoxia. Patient also on metformin which will be discontinued. Given IV hydration. Lactic acid trended 4.4 --> 3.9 --> 2.8. Blood cultures with NGTD. Nausea and vomiting: with inhaler use. Denies abdominal pain. Will monitor. No further episodes overnight. Alcohol abuse: Counseled. Thiamine/MV/folate. [facility] protocol. Bilateral lower extremity dermatitis: monitor Chronic medical conditions of peripheral neuropathy, diabetes mellitus, congestive heart failure, hyperlipidemia, gastritis, hypertension, hypothyroidism and suspected KATIE. Continue outpatient medications as appropriate, monitor fingerstick sugars sliding scale coverage and outpatient follow-up for sleep studies. BiPAP at night. DVT prophylaxis with SCD and heparin Discussed with the patient, nurse Discharge plan: Patient needs O2 at home and CPAP at night. Difficult discharge as patient doesn't have insurance. Pending SSI. Case management is following. Will also have PT working daily Plan to transfer to [facility] Zoie Peraza MD Nov 24, 2016 10:29
[2016-11-24] MEDS: RESP: ALBUTEROL 2.5 MG/3 ML NEB (PRN) INH (20:48)
[2016-11-25] VITALS (8 sets, daily range): BP systolic 127–138; BP diastolic 73–106; PULSE 62–69; RESP 18–21; TEMP 96.2–98.3; O2SAT 96–100
[2016-11-25] MEDS: ACETAMINOPHEN/HYDROcodone 325 MG/5 MG TAB PO PRN ×5 (02:43→22:47)
[2016-11-25] MEDS: LEVOTHYROXINE SODIUM 100 MCG TAB PO SCH (05:56)
[2016-11-25] MEDS: INSULIN ASPART SUPPLEMENTAL SCALE SQ SCH ×4 (06:35→22:08)
[2016-11-25] MEDS: RESP: ALBUTEROL 2.5 MG/3 ML NEB (PRN) INH ×2 (07:42→15:33)
[2016-11-25] MEDS: SODIUM CHLORIDE 0.9% FLUSH 10 ML FLUSH IV FLUSH SCH (09:00)
[2016-11-25] MEDS: BUDESONIDE-FORMOTEROL 160/4.5 MCG INHALER INH SCH ×2 (09:48→22:05)
[2016-11-25] MEDS: HEPARIN SODIUM - SQ 10,000 UNITS/ML VIAL SQ SCH ×2 (09:49→21:00)
[2016-11-25] MEDS: DOCUSATE SODIUM 100 MG CAP PO SCH ×2 (09:49→22:06)
[2016-11-25] MEDS: THIAMINE HCL 100 MG TAB PO SCH (09:50)
[2016-11-25] MEDS: amLODIPine BESYLATE 5 MG TAB PO SCH (09:50)
[2016-11-25] MEDS: BENZONATATE 100 MG CAP PO SCH ×3 (09:50→18:23)
[2016-11-25] MEDS: predniSONE 20 MG TAB PO SCH (09:50)
[2016-11-25] MEDS: IBUPROFEN 600 MG TAB PO PRN (14:33)
--- NOTE | 2016-11-25 17:13 | HHI.PR ---
Subjective Remarks 46-year-old female who is seen today at [facility] because of transfer from [facility] hospital. Patient does have rather significant history of neuropathy, diabetes, congestive heart failure, hyponatremia, gastritis, hypertension, hypothyroidism, and constructive point disease, obstructive sleep apnea, chronic respiratory failure. Patient did have a recent prolonged hospitalization and she was discharged at that time with home oxygen, however patient was unable to obtain the oxygen so she returned to the hospital because she had worsening shortness of breath, dyspnea. Patient did have walk study performed which required oxygen supplementation in outpatient setting. Patient does have obstructive sleep apnea which she has not been able to follow-up with zipper joiner in order to obtain sleep study. Patient was admitted again in [facility] because she is unable to be discharged without oxygen. Patient has been unable to obtain sleep study so she is unable to obtain CPAP machine upon discharge. Because patient unable to afford, does not have financial means necessary to obtain oxygen or CPAP machine patient has been sent to [place] for continued management until payor source can be found for oxygenation. Objective Vitals Vital Signs Date Time Temp Pulse Resp B/P Pulse Ox O2 Delivery O2 Flow Rate FiO2 11/25/16 08:00 98.3 69 18 127/75 100 11/25/16 07:46 97 Nasal Cannula 2.00 11/25/16 07:15 Nasal Cannula 3.00 11/25/16 07:00 2.00 11/25/16 04:20 98 30 11/25/16 03:43 16 11/25/16 02:00 96.2 62 20 138/106 97 11/25/16 01:13 96 30 11/24/16 22:50 98 30 11/24/16 21:16 16 11/24/16 20:48 98 Nasal Cannula 2.00 11/24/16 20:00 96.5 72 23 139/101 97 11/24/16 20:00 Nasal Cannula 3.00 I/O 11/24/16 11/24/16 11/24/16 11/25/16 11/25/16 11/25/16 07:00 15:00 23:00 07:00 15:00 23:00 Intake Total 480 ml 240 ml 240 ml 1520 ml Balance 480 ml 240 ml 240 ml 1520 ml Intake Oral 480 ml 240 ml 240 ml 1520 ml # Voids 3 5 2 1 6 # Bowel Movements 1 Result Diagram: 11/24/1646 11/24/16745 Objective Remarks GENERAL: Well-developed, morbidly obese with BMI 53.1 in no acute distress. alert and orientated HEENT: Head is normocephalic without any lesions or masses noted. Facial features are symmetric. Eyes: Extraocular muscles are intact. Conjunctivae were clear. NECK: Supple without any masses. Trachea midline no deviation. CARDIAC: Regular rhythm, regular rate. S1/S2 are heard. No murmurs gallops or rubs. LUNGS: Diminished breath sounds, right greater than left. No wheeze, Rhonchi or rales. No use of accessory muscles on inspiration or expiration. ABDOMEN: Soft, nontender. Nondistended. Bowel sounds heard in all 4 quadrants. No organomegaly or masses. Negative rebound, negative guarding EXTREMITIES: No edema, pulses are equal bilaterally. No cyanosis or clubbing NEUROLOGY: Mood and affect appear appropriate. Cranial nerves II through XII grossly intact. Moving all extremities, speech is clear Urinary Catheter: No Vascular Central Line Catheter: No A/P Assessment and Plan Chronic hypoxic/hypercapnic respiratory failure with chronic obstructive pulmonary disease.: Patient is independent. Continue O2 supplementation maintain O2 sats greater than 92%. Continue prednisone, continue duo nebs as needed, continue Symbicort. Pulmonary following the patient, continue incentive spirometry Obstructive sleep apnea/hypoventilation syndrome: Continue CPAP at night for respiratory support. Patient will require outpatient evaluation with zipper joiner for sleep study to obtain outpatient CPAP Diabetes: Resume metformin 1000 mg twice daily. Accu-Cheks with sliding scale insulin Lactic acidosis on presentation, will continue to trend and chills normal Hypertension, history of congestive heart failure: Norvasc discontinued. Blood pressure is stable. We will continue Lasix 20 mg daily Hypothyroidism: Replacement therapy has been continued Peripheral neuropathy/chronic pain: Patient is requesting increase in pain medication. She indicates that she has been prescribed higher dose and that in outpatient setting. I did review Jonny Riley which indicates that the patient has not had any narcotic medication prescribed to her since January,. DVT prevention: Subcutaneous heparin Ricardo Hyman Nov 25, 2016 17:13
[2016-11-25] MEDS: metFORMIN HCL 500 MG TAB PO SCH (18:23)
[2016-11-25] MEDS: RESP: ALBUTEROL 2.5 MG/IPRATROPIUM 0.5 MG NEB (SCH) NEB (20:29)
[2016-11-26] VITALS (8 sets, daily range): BP systolic 118–120; BP diastolic 74–83; PULSE 64–84; RESP 16–19; TEMP 95.5–95.7; O2SAT 94–100
[2016-11-26] MEDS: IBUPROFEN 600 MG TAB PO PRN ×2 (04:19→16:13)
[2016-11-26] MEDS: LEVOTHYROXINE SODIUM 100 MCG TAB PO SCH (05:59)
[2016-11-26] MEDS: ACETAMINOPHEN/HYDROcodone 325 MG/5 MG TAB PO PRN ×3 (05:59→18:40)
[2016-11-26] MEDS: INSULIN ASPART SUPPLEMENTAL SCALE SQ SCH ×4 (06:08→22:03)
[2016-11-26 06:12] LABS: AUTOMATED NEUTROPHIL # 7.3 TH/MM3 (1.8-7.7); BASOPHIL # 0.1 TH/MM3 (0-0.2); BASOPHIL % 1.2 % (0.0-2.0); EOSINOPHIL % 0.5 % (0.0-4.0); HEMATOCRIT 39.4 % (35.0-46.0); HEMO FLAGS DIFF FINAL; LYMPH % 15.4 % (9.0-44.0); LYMPHOCYTE # 1.4 TH/MM3 (1.0-4.8); MEAN CELL VOLUME 90.1 FL (80.0-100.0); MEAN CORPUSCULAR HEMOGLOBIN 30.1 PG (27.0-34.0); MEAN CORPUSCULAR HGB CONC 33.4 % (32.0-36.0); NEUT % 78.9 % (16.0-70.0); PLATELET COUNT 127 TH/MM3 (150-450); RED BLOOD COUNT 4.37 MIL/MM3 (4.00-5.30); RED CELL DISTRIBUTION WIDTH 13.7 % (11.6-17.2); WHITE BLOOD COUNT 9.2 TH/MM3 (4.0-11.0)
[2016-11-26 06:14] LABS: POTASSIUM 3.7 MEQ/L (3.5-5.1)
[2016-11-26 06:19] LABS: BICARBONATE 35.6 MEQ/L (21.0-32.0)
[2016-11-26] MEDS: RESP: ALBUTEROL 2.5 MG/IPRATROPIUM 0.5 MG NEB (SCH) NEB ×3 (07:25→20:26)
[2016-11-26] MEDS: HEPARIN SODIUM - SQ 10,000 UNITS/ML VIAL SQ SCH ×2 (09:00→21:59)
[2016-11-26] MEDS: THIAMINE HCL 100 MG TAB PO SCH (09:15)
[2016-11-26] MEDS: BENZONATATE 100 MG CAP PO SCH ×3 (09:15→16:13)
[2016-11-26] MEDS: DOCUSATE SODIUM 100 MG CAP PO SCH ×2 (09:15→21:59)
[2016-11-26] MEDS: FUROSEMIDE 20 MG TAB PO SCH (09:15)
[2016-11-26] MEDS: amLODIPine BESYLATE 5 MG TAB PO SCH (09:15)
[2016-11-26] MEDS: predniSONE 20 MG TAB PO SCH (09:15)
[2016-11-26] MEDS: metFORMIN HCL 500 MG TAB PO SCH ×2 (09:15→16:13)
[2016-11-26] MEDS: BUDESONIDE-FORMOTEROL 160/4.5 MCG INHALER INH SCH ×2 (09:16→21:58)
--- NOTE | 2016-11-26 11:35 | HHI.PR ---
Subjective Remarks Patient seen and examined today. Patient sitting in room without oxygen on with 95% O2 saturation Objective Vitals Vital Signs Date Time Temp Pulse Resp B/P Pulse Ox O2 Delivery O2 Flow Rate FiO2 11/26/16 10:55 99 Nasal Cannula 3.00 11/26/16 08:00 95.5 84 19 120/83 99 11/26/16 07:20 100 Nasal Cannula 2.00 11/26/16 07:20 98 11/26/16 04:39 96 30 11/26/16 01:00 96 30 11/25/16 23:06 99 30 11/25/16 20:29 98 Nasal Cannula 2.00 11/25/16 20:00 97.2 65 21 128/73 98 11/25/16 19:00 Nasal Cannula 4.00 I/O 11/25/16 11/25/16 11/25/16 11/26/16 11/26/16 11/26/16 07:00 15:00 23:00 07:00 15:00 23:00 Intake Total 240 ml 1520 ml 360 ml 360 ml 100 ml Balance 240 ml 1520 ml 360 ml 360 ml 100 ml Intake Oral 240 ml 1520 ml 360 ml 360 ml 100 ml # Voids 1 6 2 2 # Bowel Movements 1 Result Diagram: 11/26/16 0547 11/26/16 0547 Objective Remarks GENERAL: Well-developed, morbidly obese with BMI 53.1 in no acute distress. alert and orientated HEENT: Head is normocephalic without any lesions or masses noted. Facial features are symmetric. Eyes: Extraocular muscles are intact. Conjunctivae were clear. NECK: Supple without any masses. Trachea midline no deviation. CARDIAC: Regular rhythm, regular rate. S1/S2 are heard. No murmurs gallops or rubs. LUNGS: Diminished breath sounds, right greater than left. No wheeze, Rhonchi or rales. No use of accessory muscles on inspiration or expiration. ABDOMEN: Soft, nontender. Nondistended. Bowel sounds heard in all 4 quadrants. No organomegaly or masses. Negative rebound, negative guarding EXTREMITIES: No edema, pulses are equal bilaterally. No cyanosis or clubbing NEUROLOGY: Mood and affect appear appropriate. Cranial nerves II through XII grossly intact. Moving all extremities, speech is clear Urinary Catheter: No Vascular Central Line Catheter: No A/P Assessment and Plan Chronic hypoxic/hypercapnic respiratory failure with chronic obstructive pulmonary disease.: Patient no longer requires oxygen at this time. Continue O2 supplementation maintain O2 sats greater than 88 %. Continue prednisone, continue duo nebs as needed, continue Symbicort. Pulmonary following the patient, continue incentive spirometry. O2 walk study was performed and patient had 94% O2 saturation on walking 250 feet on room air Obstructive sleep apnea/hypoventilation syndrome: Continue CPAP at night for respiratory support. Patient will require outpatient evaluation with glass bulb silverer for sleep study to obtain outpatient CPAP Diabetes: Metformin 1000 mg twice daily. Accu-Cheks with sliding scale insulin Lactic acidosis on presentation, resolved at this time. Most recent was 1.8 Hypertension, history of congestive heart failure: Norvasc discontinued. Blood pressure is stable. Lasix 20 mg daily Hypothyroidism: Replacement therapy has been continued Peripheral neuropathy/chronic pain: Patient is requesting increase in pain medication. She indicates that she has been prescribed higher dose and that in outpatient setting. I did review E Rosemary which indicates that the patient has not had any narcotic medication prescribed to her since January,. DVT prevention: Subcutaneous heparin Discharge Planning Discharge planning: Patient has past walk study. She no longer requires oxygen at home. Patient follow-up with outpatient glass bulb silverer to arrange for sleep study and CPAP. Consulted case management for patient care assistance, blue card, outpatient follow-up. Unfortunately, patient care assistance cannot be accessed in [place] until Monday. Patient will likely have to remain in hospital until then. Ricardo Hyman Nov 26, 2016 11:35
[2016-11-26] MEDS ORDERED: NEBULIZER1 MI1 (16:33)
[2016-11-26] MEDS ORDERED: SYMB160A INH (16:45)
[2016-11-26] MEDS ORDERED: IPRASOL NEB (16:45)
[2016-11-26] MEDS ORDERED: VENTAER INH (16:45)
[2016-11-26] MEDS ORDERED: TIOT1AER2 INH (16:45)
[2016-11-26] MEDS ORDERED: FURO1TAB62 PO (16:45)
[2016-11-26] MEDS ORDERED: LEVO.1 PO (16:45)
[2016-11-26] MEDS ORDERED: GLUC1000 PO (16:45)
[2016-11-26] MEDS ORDERED: MEDR4PAK PO (16:45)
[2016-11-26] MEDS ORDERED: AMLO5 PO (16:45)
--- NOTE | 2016-11-26 16:46 | HHI.DCPOC ---
Discharge Care Plan Diagnosis: (1) Acute respiratory failure with hypoxia (2) COPD exacerbation Goals to Promote Your Health * To prevent worsening of your condition and complications * To maintain your health at the optimal level Directions to Meet Your Goals Take your medications as prescribed Follow your dietary instruction Follow activity as directed Keep your appointments as scheduled Take your immunizations and boosters as scheduled If your symptoms worsen call your PCP, if no PCP go to Urgent Care Center or Emergency Room Smoking is Dangerous to Your Health. Avoid second hand smoke Call the 24-hour hour crisis hotline for domestic abuse at Ricardo Hyman Nov 26, 2016 16:46
[2016-11-27] VITALS (7 sets, daily range): BP systolic 120–129; BP diastolic 66–85; PULSE 66–67; RESP 19–20; TEMP 96–96.8; O2SAT 95–99
[2016-11-27] MEDS: ACETAMINOPHEN/HYDROcodone 325 MG/5 MG TAB PO PRN ×4 (01:09→21:07)
[2016-11-27] MEDS: IBUPROFEN 600 MG TAB PO PRN ×3 (03:27→22:20)
[2016-11-27] MEDS: LEVOTHYROXINE SODIUM 100 MCG TAB PO SCH (06:47)
[2016-11-27] MEDS: INSULIN ASPART SUPPLEMENTAL SCALE SQ SCH ×4 (06:51→21:11)
[2016-11-27] MEDS: RESP: ALBUTEROL 2.5 MG/IPRATROPIUM 0.5 MG NEB (SCH) NEB ×3 (07:26→20:45)
[2016-11-27] MEDS: BENZONATATE 100 MG CAP PO SCH ×3 (07:48→17:07)
[2016-11-27] MEDS: metFORMIN HCL 500 MG TAB PO SCH ×2 (07:48→17:08)
[2016-11-27] MEDS: predniSONE 20 MG TAB PO SCH (07:50)
[2016-11-27] MEDS: FUROSEMIDE 20 MG TAB PO SCH (07:50)
[2016-11-27] MEDS: amLODIPine BESYLATE 5 MG TAB PO SCH (07:50)
[2016-11-27] MEDS: THIAMINE HCL 100 MG TAB PO SCH (07:50)
[2016-11-27] MEDS: DOCUSATE SODIUM 100 MG CAP PO SCH ×2 (07:50→21:07)
[2016-11-27] MEDS: HEPARIN SODIUM - SQ 10,000 UNITS/ML VIAL SQ SCH ×2 (07:51→21:07)
[2016-11-27] MEDS: BUDESONIDE-FORMOTEROL 160/4.5 MCG INHALER INH SCH ×2 (07:53→21:07)
--- NOTE | 2016-11-27 10:17 | HHI.PR ---
Subjective Remarks Patient seen and examined today. Patient states that she's had burning on urination. Patient sitting in chair without any oxygen with good O2 saturations. Objective Vitals Vital Signs Date Time Temp Pulse Resp B/P Pulse Ox O2 Delivery O2 Flow Rate FiO2 11/27/16 09:28 14 11/27/16 08:00 96.8 66 19 120/66 99 11/27/16 07:29 97 21 11/27/16 04:50 96 30 11/27/16 02:00 98 30 11/26/16 23:15 100 30 11/26/16 20:30 98 21 11/26/16 20:00 95.7 64 16 118/74 97 11/26/16 20:00 97 Room Air 11/26/16 17:38 14 11/26/16 15:26 94 21 11/26/16 10:55 99 Nasal Cannula 3.00 I/O 11/26/16 11/26/16 11/26/16 11/27/16 11/27/16 11/27/16 07:00 15:00 23:00 07:00 15:00 23:00 Intake Total 360 ml 720 ml 480 ml 480 ml Output Total 1000 ml 650 ml Balance 360 ml 720 ml -520 ml -170 ml Intake Oral 360 ml 720 ml 480 ml 480 ml Output Urine Total 1000 ml 650 ml Stool Total 0 ml # Voids 2 2 # Bowel Movements 0 0 Result Diagram: 11/26/16 0547 11/26/16 0547 Objective Remarks GENERAL: Well-developed, morbidly obese with BMI 53.1 in no acute distress. alert and orientated HEENT: Head is normocephalic without any lesions or masses noted. Facial features are symmetric. Eyes: Extraocular muscles are intact. Conjunctivae were clear. NECK: Supple without any masses. Trachea midline no deviation. CARDIAC: Regular rhythm, regular rate. S1/S2 are heard. No murmurs gallops or rubs. LUNGS: Diminished breath sounds, right greater than left. No wheeze, Rhonchi or rales. No use of accessory muscles on inspiration or expiration. ABDOMEN: Soft, nontender. Nondistended. Bowel sounds heard in all 4 quadrants. No organomegaly or masses. Negative rebound, negative guarding EXTREMITIES: No edema, pulses are equal bilaterally. No cyanosis or clubbing NEUROLOGY: Mood and affect appear appropriate. Cranial nerves II through XII grossly intact. Moving all extremities, speech is clear Urinary Catheter: No Vascular Central Line Catheter: No A/P Assessment and Plan Dysuria: We'll obtain urinalysis to evaluate for infection. Chronic hypoxic/hypercapnic respiratory failure with chronic obstructive pulmonary disease.: Patient no longer requires oxygen at this time. Continue O2 supplementation maintain O2 sats greater than 88 %. Continue prednisone, continue duo nebs as needed, continue Symbicort. Pulmonary following the patient, continue incentive spirometry. O2 walk study was performed and patient had 94% O2 saturation on walking 250 feet on room air Obstructive sleep apnea/hypoventilation syndrome: Continue CPAP at night for respiratory support. Patient will require outpatient evaluation with rug cleaner for sleep study to obtain outpatient CPAP Diabetes: Metformin 1000 mg twice daily. Accu-Cheks with sliding scale insulin Lactic acidosis on presentation, resolved at this time. Most recent was 1.8 Hypertension, history of congestive heart failure: Norvasc discontinued. Blood pressure is stable. Lasix 20 mg daily Hypothyroidism: Replacement therapy has been continued Peripheral neuropathy/chronic pain: Patient is requesting increase in pain medication. She indicates that she has been prescribed higher dose and that in outpatient setting. I [facility] which indicates that the patient has not had any narcotic medication prescribed to her since January,. DVT prevention: Subcutaneous heparin Discharge Planning Discharge planning: Patient has past walk study. She no longer requires oxygen at home. Patient follow-up with outpatient rug cleaner to arrange for sleep study and CPAP. Consulted case management for patient care assistance, blue card, outpatient follow-up. Unfortunately, patient care assistance cannot be accessed in [place] until Monday. Patient will likely have to remain in hospital until then. Ricardo Hyman Nov 27, 2016 10:17
[2016-11-27 10:45] LABS: BLOOD, URINE NEG (NEG); GLUCOSE,URINE NEG (NEG); KETONE, URINE NEG (NEG); NITRITE,URINE NEG (NEG); PH, URINE 5.5 (5.0-8.5)
[2016-11-27 10:50] LABS: METHOD OF COLLECTION CLEAN CATCH; RBC, URINE 0-3 /hpf (0-3); URINE COLOR STRAW (YELLW/STRAW)
[2016-11-27 10:51] LABS: COMMENT (UR) CULT NOT INDICATED; CULTURE IF INDICATED CULT NOT INDICATED; SQUAMOUS EPITHELIAL CELL URINE 0-5 /hpf (0-5)
[2016-11-28 01:10] VITALS: O2SAT 98
[2016-11-28] MEDS: ACETAMINOPHEN/HYDROcodone 325 MG/5 MG TAB PO PRN ×3 (03:10→15:28)
[2016-11-28 04:00] VITALS: O2SAT 98
[2016-11-28] MEDS: IBUPROFEN 600 MG TAB PO PRN (06:31)
[2016-11-28] MEDS: LEVOTHYROXINE SODIUM 100 MCG TAB PO SCH (06:31)
[2016-11-28] MEDS: INSULIN ASPART SUPPLEMENTAL SCALE SQ SCH ×3 (06:34→16:23)
[2016-11-28] MEDS: RESP: ALBUTEROL 2.5 MG/IPRATROPIUM 0.5 MG NEB (SCH) NEB ×3 (07:05→19:14)
[2016-11-28 07:07] VITALS: O2SAT 97
[2016-11-28 08:00] VITALS: BP 100/57; PULSE 84; RESP 16; TEMP 98.4; O2SAT 97
[2016-11-28] MEDS: HEPARIN SODIUM - SQ 10,000 UNITS/ML VIAL SQ SCH (09:00)
[2016-11-28] MEDS: predniSONE 20 MG TAB PO SCH (09:35)
[2016-11-28] MEDS: BENZONATATE 100 MG CAP PO SCH ×3 (09:35→16:22)
[2016-11-28] MEDS: DOCUSATE SODIUM 100 MG CAP PO SCH (09:36)
[2016-11-28] MEDS: metFORMIN HCL 500 MG TAB PO SCH ×2 (09:36→16:22)
[2016-11-28] MEDS: THIAMINE HCL 100 MG TAB PO SCH (09:36)
[2016-11-28] MEDS: FUROSEMIDE 20 MG TAB PO SCH (09:36)
--- NOTE | 2016-11-28 09:39 | HHI.PR ---
Subjective Remarks Patient seen and examined today. Patient's only concern today is that she states that her legs hurt from neuropathy and that she is requesting pain medication upon discharge. She is no longer requiring oxygen. Objective Vitals Vital Signs Date Time Temp Pulse Resp B/P Pulse Ox O2 Delivery O2 Flow Rate FiO2 11/28/16 07:07 97 21 11/28/16 04:00 98 30 11/28/16 01:10 98 30 11/27/16 23:30 98 30 11/27/16 20:47 97 21 11/27/16 20:00 96.0 67 20 129/85 95 11/27/16 20:00 95 Room Air I/O 11/27/16 11/27/16 11/27/16 11/28/16 11/28/16 11/28/16 07:00 15:00 23:00 07:00 15:00 23:00 Intake Total 480 ml 620 ml 600 ml 220 ml 100 ml Output Total 650 ml 900 ml 1000 ml 400 ml Balance -170 ml -280 ml -400 ml -180 ml 100 ml Intake Oral 480 ml 620 ml 600 ml 220 ml 100 ml Output Urine Total 650 ml 900 ml 1000 ml 400 ml Stool Total 0 ml # Voids 1 # Bowel Movements 0 0 0 Result Diagram: 11/26/16 0547 11/26/16 0547 Objective Remarks GENERAL: Well-developed, morbidly obese with BMI 53.1 in no acute distress. alert and orientated HEENT: Head is normocephalic without any lesions or masses noted. Facial features are symmetric. Eyes: Extraocular muscles are intact. Conjunctivae were clear. NECK: Supple without any masses. Trachea midline no deviation. CARDIAC: Regular rhythm, regular rate. S1/S2 are heard. No murmurs gallops or rubs. LUNGS: Diminished breath sounds, right greater than left. No wheeze, Rhonchi or rales. No use of accessory muscles on inspiration or expiration. ABDOMEN: Soft, nontender. Nondistended. Bowel sounds heard in all 4 quadrants. No organomegaly or masses. Negative rebound, negative guarding EXTREMITIES: No edema, pulses are equal bilaterally. No cyanosis or clubbing NEUROLOGY: Mood and affect appear appropriate. Cranial nerves II through XII grossly intact. Moving all extremities, speech is clear Urinary Catheter: No Vascular Central Line Catheter: No A/P Assessment and Plan Chronic hypoxic/hypercapnic respiratory failure with chronic obstructive pulmonary disease.: Patient no longer requires oxygen at this time. Continue O2 supplementation maintain O2 sats greater than 88 %. Continue prednisone, continue duo nebs as needed, continue Symbicort. Pulmonary following the patient, continue incentive spirometry. O2 walk study was performed and patient had 94% O2 saturation on walking 250 feet on room air Obstructive sleep apnea/hypoventilation syndrome: Continue CPAP at night for respiratory support. Patient will require outpatient evaluation with astronaut mission specialist for sleep study to obtain outpatient CPAP Diabetes: Metformin 1000 mg twice daily. Accu-Cheks with sliding scale insulin Dysuria: Urinalysis performed which does not indicate any infection or abnormality. Recommended increased fluid Lactic acidosis on presentation, resolved at this time. Most recent was 1.8 Hypertension, history of congestive heart failure: Norvasc discontinued. Blood pressure is stable. Lasix 20 mg daily Hypothyroidism: Replacement therapy has been continued Peripheral neuropathy/chronic pain: Patient is requesting increase in pain medication. She indicates that she has been prescribed higher dose and that in outpatient setting. I did review E Rosemary which indicates that the patient has not had any narcotic medication prescribed to her since January,. DVT prevention: Subcutaneous heparin Discharge Planning Discharge planning: Patient has past walk study. She no longer requires oxygen at home. Patient follow-up with outpatient astronaut mission specialist to arrange for sleep study and CPAP. Consulted case management for patient care assistance, blue card, outpatient follow-up. Plan to discharge once patient care assistance and outpatient follow-up have been arranged. Ricardo Hyman Nov 28, 2016 09:39
[2016-11-28] MEDS: amLODIPine BESYLATE 5 MG TAB PO SCH (09:41)
[2016-11-28] MEDS: BUDESONIDE-FORMOTEROL 160/4.5 MCG INHALER INH SCH (09:42)
--- NOTE | 2016-11-28 10:01 | HHI.DS ---
Discharge Summary Admission Date Nov 19, 2016 at 12:55 Discharge Date: Nov 28, 2016 Admitting Diagnosis exacerbation copd; alcohol use; lactic acidosis (1) COPD exacerbation ICD Code: J44.1 Procedures None Brief History - From Admission This is a 46-year-old female with a history of peripheral neuropathy, diabetes mellitus, congestive heart failure, hyperlipidemia, gastritis, hypertension, hypothyroidism, COPD, KATIE and recent admission for acute hypercarbic respiratory failure requiring intubation. She was discharged from the hospital after prolonged hospitalization 3 days ago supposedly with oxygen but was unable to obtain. Patient states for 2 days she has worsening dyspnea with exertion associated with wheezing, transient nonexertional sharp retrosternal pain 8 out of 10 in severity without radiation, chills and nonproductive cough. She denies fever. She has neuropathic pain in her extremities and swelling on as needed Lasix. She has Nausea and vomiting with inhaler use. She received fluid bolus, oxygen from EMS. On room air she was 88%. CBC/BMP: 11/26/16 0547 11/26/16 0547 Significant Findings Laboratory Tests Test 11/26/16 11/27/16 05:47 10:15 Platelet Count 127 TH/MM3 (150-450) Neutrophils (%) (Auto) 78.9 % (16.0-70.0) Carbon Dioxide Level 35.6 MEQ/L (21.0-32.0) Blood Urea Nitrogen 27 MG/DL (7-18) Estimat Glomerular Filtration 59 ML/MIN (>89) Rate Random Glucose 145 MG/DL (74-106) Urine Leukocyte Esterase SMALL (NEG) Imaging Last Impressions Chest X-Ray 11/18/162116 Signed Impressions: Service Date/Time: Friday, November 18, 2016 21:37 - CONCLUSION: Elevated diaphragm with mild gaseous distention of bowel in the left upper quadrant. Compensated cardiomegaly in the chest Jasbir Shepherd MD PE at Discharge GENERAL: Well-developed, morbidly obese with BMI 53.1 in no acute distress. alert and orientated HEENT: Head is normocephalic without any lesions or masses noted. Facial features are symmetric. Eyes: Extraocular muscles are intact. Conjunctivae were clear. NECK: Supple without any masses. Trachea midline no deviation. CARDIAC: Regular rhythm, regular rate. S1/S2 are heard. No murmurs gallops or rubs. LUNGS: Diminished breath sounds, right greater than left. No wheeze, Rhonchi or rales. No use of accessory muscles on inspiration or expiration. ABDOMEN: Soft, nontender. Nondistended. Bowel sounds heard in all 4 quadrants. No organomegaly or masses. Negative rebound, negative guarding EXTREMITIES: No edema, pulses are equal bilaterally. No cyanosis or clubbing NEUROLOGY: Mood and affect appear appropriate. Cranial nerves II through XII grossly intact. Moving all extremities, speech is clear Hospital Course 46-year-old female who originally presented to hospital because of worsening dyspnea and shortness of breath. Patient does have history of COPD, obstructive sleep apnea. Patient was recently admitted in the hospital and was to be discharged home on oxygen, however she was unable to obtain it. She had worsening shortness of breath and dyspnea so she came back to the hospital for evaluation. Patient was admitted for COPD exacerbation with hypoxia. Lactic acidosis. The patient was managed in [facility] until she was stabilized. The patient was still requiring home oxygen as per walk study. And she needed a CPAP. However CPAP cannot be done during hospitalization. Patient was informed that she needed to follow-up with hob machine operator in order to evaluate her and get a sleep study to supply her with the CPAP. The patient was transferred to [place] because unable to obtain home oxygen due to financial reasons. Patient was evaluated on a daily basis in [place], patient passed her walk study and no longer requires chronic oxygenation. Plans for discharge over the weekend, however patient care assistance and case management was not able to evaluate the patient and supply her with her prescriptions, blue card, or outpatient follow-up. Awaiting manager case this time to arrange her needs. After that patient can be discharged home with outpatient follow-up with hob machine operator to arrange sleep study and CPAP. Patient clinically stable this time. Pt Condition on Discharge: Stable Discharge Disposition: Discharge Home Discharge Time: > 30 minutes Discharge Instructions DIET: Follow Instructions for: Diabetic Diet Activities you can perform: Regular-No Restrictions Follow up Referrals: PCP Follow-up - 1 Week Pulmonology - 1 Week New Medications: Methylprednisolone Dosepak (Medrol Dosepak) 4 Mg Dspk 4 MG PO DIRECTED Per Pharmacist direction #1 Ref 0 DSPK Nebulizer (Nebulizer) 1 Mis Mis 1 EA .ROUTE DIRECTED Breathing Treatment #1 Ref 0 EA Amlodipine (Norvasc) 5 Mg Tab 5 MG PO DAILY Blood Pressure Management #30 TAB Ipratropium-Albuterol Neb (Duoneb) 0.5-2.5 Mg/3 Ml Neb 1 AMPULE NEB Q6HR WHILE AWAKE NEB COPD Days 30 ML Continued Medications: Albuterol 18 GM Inh (Ventolin Hfa 18 GM Inh) 90 Mcg/Act Aer 2 PUFF INH Q4H PRN SHORTNESS OF BREATH #1 Ref 0 INHALER (This prescription has been renewed) Budesonide-Formoterol Inh (Symbicort Inh) 160-4.5 Mcg/Act Aero 1 PUFF INH Q12HR Breathing Treatment #1 INHALER (This prescription has been renewed) Furosemide (Lasix) 20 Mg Tab 20 MG PO DAILY PRN leg swelling #30 Ref 0 TAB (This prescription has been renewed) Levothyroxine (Synthroid) 100 Mcg Tab 100 MCG PO DAILY Thyroid #30 Ref 0 TAB (This prescription has been renewed) Metformin (Glucophage) 1,000 Mg Tab 1000 MG PO BIDPC With a meal Blood Sugar Management #60 Ref 0 TAB (This prescription has been renewed) Tiotropium Inh (Spiriva Respimat Inh) 1.25 Mcg/Act Aero 2 PUFF INH DAILY 1.25 mcg = 1 inhalation Asthma Management #1 Ref 0 INHALER ( This prescription has been renewed) Discontinued Medications: Hydrocodone-Acetaminophen (Hydrocodone-Acetaminophen) 5-325 mg Tab 1 TAB PO Q6HR PRN pain #20 TAB Ipratropium HFA 12.9 GM Inh (Atrovent HFA 12.9 GM Inh) 17 Mcg/Act Aer 2 PUFF INH Q6HR Breathing Treatment #1 Ref 0 INHALER Ricardo Hyman Nov 28, 2016 10:01
[2016-11-28 18:41] VITALS: RESP 14
[2016-11-28 19:14] VITALS: O2SAT 96
== END 2016-11-28 20:10 | disposition home or self-care (01) | DRG 190 ==
LOC: NEPC 21:02 → NEDA 23:26 → NEPFCDU 11-19 01:54 → OBSVTOIN 11-19 12:55 → HCIS 11-20 18:40 → N05B 11-22 17:19 → PH5A 11-24 15:36
PROVIDERS: ADMIT Family Medicine; ATTEND Family Medicine
PROC: 5A09557 Assistance with Respiratory Ventilation, Greater than 96 Consecutive Hours, Continuous Positive Airway Pressure (ICD-10-PCS; principal; 2016-11-20)
DX: J44.1 Chronic obstructive pulmonary disease with (acute) exacerbation (principal); J96.21 Acute and chronic respiratory failure with hypoxia; E87.2 Acidosis; J96.22 Acute and chronic respiratory failure with hypercapnia; Z68.43 Body mass index [BMI] 50.0-59.9, adult; I50.9 Heart failure, unspecified; I11.0 Hypertensive heart disease with heart failure; E11.42 Type 2 diabetes mellitus with diabetic polyneuropathy; E03.9 Hypothyroidism, unspecified; E78.00 Pure hypercholesterolemia, unspecified; E78.5 Hyperlipidemia, unspecified; G47.33 Obstructive sleep apnea (adult) (pediatric); J45.909 Unspecified asthma, uncomplicated; K21.9 Gastro-esophageal reflux disease without esophagitis; Z91.19 Patient's noncompliance with other medical treatment and regimen; Z79.84 Long term (current) use of oral hypoglycemic drugs; L30.9 Dermatitis, unspecified; K29.70 Gastritis, unspecified, without bleeding; F10.10 Alcohol abuse, uncomplicated; G89.29 Other chronic pain; J98.4 Other disorders of lung; E66.09 Other obesity due to excess calories; Z87.891 Personal history of nicotine dependence
CPT/HCPCS: 36600; 71010; 76937; 80048; 80053; 80307; 81001; 82550; 82805; 82948; 83036; 83605; 83735; 83880; 84484; 85025; 85379; 85610; 85730; 87040; 93005; 94002; 94003; 94150; 94620; 94640; 94664; 96374; 96375; G0378; J1644; J1815; J1885; J1956; J2270; J2405; J2930; J7030; J7040; J7512; J7613

== ENCOUNTER 2016-12-02 22:00 | Emergency (ER) | payer OTHER ==
[~2016-12-02 22:00] MED LIST changes: +AMLO5 PO; -HYDR-3516 PO; -IPRA17I INH; +IPRASOL NEB; +MEDR4PAK PO; +NEBULIZER1 MI1; -OXYGENTANK NAS.CANULA; -WALKER WHEELS/F1 MIS
[2016-12-02 22:17] VITALS: BP 160/91; PULSE 99; RESP 24; TEMP 98.6; O2SAT 94
[2016-12-02] MEDS ORDERED: predniSONE 50 MG TAB PO ONE (22:30)
[2016-12-02] MEDS ORDERED: TETANUS/DIPHTHERIA TOXOID ADULT 0.5 ML VIAL IM ONE (22:30)
[2016-12-02] MEDS: RESP: ALBUTEROL 2.5 MG/IPRATROPIUM 0.5 MG NEB (SCH) INH ×2 (22:45→22:46)
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
[2016-12-03] MEDS ORDERED: ACETAMINOPHEN 325 MG TAB PO ONE (00:15)
[2016-12-03 06:24] VITALS: BP 142/76; PULSE 98; RESP 18; O2SAT 97
== END 2016-12-03 06:52 | disposition home or self-care (01) ==
LOC: NEPD 22:00 → NEPB 12-03 06:52
DX: S09.90XA Unspecified injury of head, initial encounter (principal); M54.2 Cervicalgia; F10.129 Alcohol abuse with intoxication, unspecified; J45.909 Unspecified asthma, uncomplicated; I10 Essential (primary) hypertension; E11.9 Type 2 diabetes mellitus without complications; Y04.2XXA Assault by strike against or bumped into by another person, initial encounter; Y93.89 Activity, other specified; Y92.009 Unspecified place in unspecified non-institutional (private) residence as the place of occurrence of the external cause; Z23 Encounter for immunization
CPT/HCPCS: 70450; 72125; 90471; 90714; 94640; 94664; 99284; J7512